=== PATIENT | female | born 1965 | race Caucasian/White ===

== ENCOUNTER 2016-07-05 23:32 | Inpatient (IN) | payer MEDICAID ==
[2016-07-05] MEDS ORDERED: Albuterol/Ipratropium 3.0-0.5 MG/3 ML Neb Soln NEB ONE (23:34)
[2016-07-05] MEDS ORDERED: methylPREDNISolone Sodium Succinate 125 MG/2 ML SDV IVPUSH ONE (23:34)
[2016-07-05] MEDS ORDERED: Budesonide 0.5 MG/2 ML Neb Susp NEB ONE (23:34)
--- NOTE | 2016-07-05 23:34 | EDM.PDOC ---
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 Upon their arrival to the patient's home they found a DuoNeb nebulizer treatment on the floor, which the patient had just completed. Her O2 sats on room air were in the 70th percentile at that time. No further treatment in route. Patient has a one- week history of a greenish yellowish productive cough and nasal drainage with increasing dyspnea since that time. No history of fever or known exposure to infection. The patient has also had some nonspecific 8/10 bilateral posterior abdominal pressure sensation with some nonspecific paresthesia with the symptoms starting about 3 days ago. No recent history of other abdominal pain, heartburn, nausea, diarrhea, melena, gross hematochezia, or any food intolerance , including fatty foods, etc., although she did have some mild stool incontinence secondary to coughing prior to arrival. She does admit to drinking 10 beers this evening The patient denies any chest pain/pressure, heart flutter, dizziness, orthostasis, orthopnea, diaphoresis, recent decreased exercise tolerance, or any other anginal-type symptoms. Symptom Onset Date: 07/05/16 Symptom Onset Time: 22:30 Timing/Duration: Reports: Constant, Getting worse, Other (As above) Severity: moderate Location, General: Reports: abdomen. Denies: head, neck, chest, back, upper extremity, left, upper extremity, right Quality: Reports: Burning, Pressure Improves with: Reports: None Worsens with: Reports: None Context, General: Reports: Other (As above) Associated Symptoms (General): Reports: cough, cough w sputum, shortness of breath. 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 Denies: Cataract , Glaucoma, Hard of hearing, Macular degeneration, Otitis media, Retinal detachment Other HEENT History: Allergic rhinitis as a child currently nonproblematic Cardiovascular History: Reports: Arrhythmia, Other (see below). Denies: Afib, Aneurysm, Blood clots/VTE/DVT, CAD, Heart murmur, High cholesterol, Hypertension , [place], PVD, Syncope Other Cardiovascular History: Repolarization changes versus borderline incomplete right bundle branch block Respiratory History: Reports: Asthma, COPD, Pulmonary fibrosis, Other (see below ). Denies: Intubation, difficult, Intubation, previous, PE, Pneumothorax, Sleep apnea, TB Other Respiratory History: Asthma as a child with secondary COPD and pulmonary fibrosis likely secondary to tobacco abuse Gastrointestinal History: Reports: None. Denies: Celiac disease, Cholelithiasis , Chronic constipation, Chronic diarrhea, Cirrhosis, Colon polyp, Fecal incontinence, Gastritis, GERD, GI bleed, Hepatitis, Inflammatory bowel disease, Irritable bowel syndrome, Jaundice, Pancreatitis, PUD Genitourinary History: Reports: None. 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 Denies: Dysfunctional uterine bleeding, Endometriosis, Spontaneous : 2 Para: 2 (Full term without complications during pregnancies or deliveries) LMP (Approximate): 3 Weeks Musculoskeletal History: Reports: Osteoarthritis, Other (see below). Denies: Back pain, chronic, Fracture, Gout, Neck pain, chronic, RA, SLE Other Musculoskeletal History: Right anterior cruciate ligament tear in August 2015 , right-sided popliteal cyst Neurological History: Reports: None. Denies: Brain injury, Cerebral aneurysms, Concussion, CVA, Headaches, chronic, Head trauma, Migraines, Neuropathy, peripheral, Seizure, TIA Psychiatric History: Reports: Addiction, Anxiety, Depression, Other (see below) . Denies: Abuse, victim of, ADD, ADHD, Hallucinations, Panic attack, Psychosis , PTSD, Suicide attempt, Suicidal ideation Other Psychiatric History: Alcohol abuse as below, no current treatment for anxiety depression disorder Endocrine/Metabolic History: Reports: None. Denies: Diabetes, type I, Diabetes , type II, Hypothyroidism, IDDM Hematologic History: Reports: None. Denies: Anemia, Blood transfusion(s), Iron deficiency Immunologic History: Reports: None. Denies: AIDS, HIV, SLE Oncologic (Cancer) History: Reports: None. Denies: Basal cell carcinoma, Cervix , Leukemia, Malignant melanoma, Non-Hodgkin's Lymphoma, Squamous cell carcinoma Dermatologic History: Reports: None. Denies: Eczema, Psoriasis - Infectious Disease History Infectious Disease History: Reports: Mononucleosis (Age 13). Denies: C- difficile, Chicken pox, Measles, Meningitis, MRSA, Pertussis (whooping cough), Rheumatic Fever, RSV, Rubella, Scarlet fever, Shingles, TB, VRE - Past Surgical History Head Surgeries/Procedures: Reports: None HEENT Surgical History: Reports: Adenoidectomy, Oral surgery, Tonsillectomy, Other (see below). Denies: Cataract surgery, Eye surgery, Laser surgery, LASIK , Myringotomy w tube(s), Naso-sinus surgery Other HEENT Surgeries/Procedures: Tonsillectomy and adenoidectomy at 5 years of age, [place] teeth extraction X 4 at age 18 Cardiovascular Surgical History: Reports: None. Denies: Varicose, Vascular surgery Respiratory Surgical History: Reports: None. Denies: Thoracentesis GI Surgical History: Reports: None. Denies: Appendectomy, Cholecystectomy, Colonoscopy, EGD, Hernia, abdominal, Hernia, inguinal, Hernia repair/other, Lysis of adhesions Female Surgical History: Reports: None. Denies: Breast biopsy, D&C, Hysterectomy, Tubal ligation Endocrine Surgical History: Reports: None. Denies: Thyroid biopsy Neurological Surgical History: Reports: C-Spine, Spinal fusion, Other (see below ). Denies: Discectomy, Laminectomy, Lumbar spine, Vertebroplasty Other Neurological Surgeries/Procedures: C3-C5 spinal fusion with graft from the right hip region at age 23 and age 24 Musculoskeletal Surgical History: Reports: None. Denies: Arthroscopic procedure , Ganglion cyst, Hip replacement, Knee replacement, ORIF, Shoulder surgery Oncologic Surgical History: Reports: None Dermatological Surgical History: Reports: None - Past Imaging History Past Imaging History: Reports: MRI (Right knee on 08/25/15) Social & Family History - Family History Family Medical History: Unobtainable HEENT: Reports: None. Denies: Allergic rhinitis, Glaucoma, Macular degeneration , Retinal detachment Cardiac: Reports: CAD, [place], Other (see below). Denies: Afib, Arrhythmia, Heart failure, Heart murmur, High cholesterol, Hypertension, PVD/COD, Syncope Other Cardiac Family History: Paternal aunts x4 with history of [place] with 2 of them dying in their 60s from a fatal [place], maternal aunt with fatal [place] at age 77, maternal grandmother with fatal [place] in her 60s Respiratory: Reports: COPD, Other (see below). Denies: Asthma, PE, Pneumothorax , Sleep apnea Other Respiratory Family Hisory: Mother with COPD GI: Reports: None. Denies: Celiac disease, Cholelithiasis, Colon polyps, GERD, GI bleed, Inflammatory bowel disease, Irritable bowel syndrome, PUD : Reports: None. Denies: Dialysis, Renal disease/insufficiency OBGYN: Reports: None. Denies: Dysfunctional uterine bleeding, Endometriosis, Recurrent spontaneous Musculoskeletal: Reports: None. Denies: Gout, Osteoarthritis, RA, SLE Neurological: Reports: None. Denies: Alzheimers disease, Cerebral aneurysms, CVA, Dementia, Migraines, MS, Parkinson's, Seizure, TIA Psychiatric: Reports: Anxiety, Depression, Other (see below). Denies: Abuse, victim of, ADD, ADHD, Psych hospitalization(s), PTSD Other Psychiatric Family History: Almost all family members on both paternal and maternal sides have problems with anxiety depression disorder and alcohol abuse Endocrine/Metabolic: Reports: None. Denies: Diabetes, type I, Diabetes, type II , Hypothyroidism, IDDM Hematologic: Reports: None. Denies: Anemia, Transfusion reaction Immunologic: Reports: None. Denies: AIDS, HIV, SLE Dermatologic: Reports: None. Denies: Eczema, Psoriasis Oncologic: Reports: Lung, Metastatic, Skin, Other (see below). Denies: Breast, Colon, Hodgkin's lymphoma, Leukemia, Lymphoma, Non-Hodgkin's lymphoma, Uterine Other Oncologic Family History: Father with fatal metastatic skin cancer/ melanoma at age 73, maternal aunt with fatal lung cancer in her 60s with history of tobacco use - Tobacco Use Smoking Status *Q: Current Every Day Smoker Years of Tobacco use: 40 Packs/Tins Daily: 1 (Maximum use of 2 packs per day with patient starting smoking at age 11) Used Tobacco, but Quit: No Smoking Cessation Information Provided To Patient: Yes Second Hand Smoke Exposure: No Second Hand Smoke Education Provided: No - Caffeine Use Caffeine Use: Reports: Coffee (1 cup of coffee per day). Denies: Energy drinks , Soda, Tea - Alcohol Use Alcohol Use History: Yes Days Per Week of Alcohol Use: 7 (Patient admits to alcohol abuse since about age 16 with no history of DWI or previous alcohol treatment) Number of Drinks Per Day: 15 (Usually beer) Total Drinks Per Week: 105 Date of Last Drink: 07/05/16 (10 beers this evening) Time of Last Drink: 19:30 Alcohol Use in Last Twelve Months: Yes Alcohol Use Frequency: Binges - Recreational Drug Use Recreational Drug Use: Yes Drug Use in Last 12 Months: No Recreational Drug Type: Reports: Marijuana/Hashish (Smoked on a daily basis in her teenage years and her 20s). Denies: Amphetamines (Speed), Cocaine, Heroin, Inhalants (Glues, Solvents, Aerosols), LSD (Acid), Methamphetamine, Morphine Recreational Drug Route: Reports: Inhaled - Living Situation & Occupation Living situation: Reports: (In 2012, 2 children), with significant other (Lives currently with significant other) Occupation: unemployed (Previously worked in the [employer] department at [employer] in [place]) ED ROS GENERAL - Review of Systems Review Of Systems: See Below Constitutional: Reports: no symptoms. Denies: fever, chills, malaise, weakness , fatigue, night sweats, diaphoresis, decreased appetite, weight loss, weight gain HEENT: Reports: Rhinitis, Sinus problem. Denies: Contact Lenses, Dental pain, Ear discharge, Ear pain, Eye discharge, Eye pain, Glasses, Hearing loss, Throat pain, Vertigo, Vision change Respiratory: Reports: Shortness of Breath, Wheezing, Cough, Sputum. Denies: Pleuritic Chest Pain, Hemoptysis Cardiovascular: Reports: Dyspnea on exertion. Denies: Chest pain, Blood pressure problem, Claudication, Edema, Lightheadedness, Orthopnea, Palpitations , PND, Syncope Endocrine: Reports: no symptoms. Denies: fatigue GI/Abdominal: Reports: Abdominal pain. Denies: Anorexia, Black stool, Bloody stool, Constipation, Diarrhea, Decreased appetite, Difficulty swallowing, Distension, Flatus, Hematemesis, Hematochezia, Melena, Nausea, Stool incontinence, Vomiting : Reports: no symptoms. Denies: discharge, dysuria, flank pain, frequency, hematuria, incontinence, irregular menses, pain, urgency, urinary retention Musculoskeletal: Reports: no symptoms. Denies: neck pain, shoulder pain, arm pain, back pain, leg pain Skin: Reports: no symptoms. Denies: jaundice, diaphoresis, bruising, wound Neurological: Reports: Numbness (Posterior abdominal region as above), Paresthesia, Tingling. Denies: Confusion, Dizziness, Headache, Seizure, Syncope , Weakness Psychiatric: Reports: Cravings (Alcohol). Denies: Agitation, Anxiety, Confusion , Depression, Hallucinations, Homicidal ideation, Mood lability, Suicidal ideation Hematologic/Lymphatic: Reports: no symptoms. Denies: anemia, easy bleeding, easy bruising Immunologic: Reports: no symptoms ED EXAM, GENERAL - Physical Exam Exam: See Below Exam Limited By: Intoxication (Borderline) General Appearance: alert, WD/WN, anxious (Mild), mild distress Eye Exam: bilateral eye: EOMI, normal inspection (No nystagmus), PERRL Ears: normal external exam, normal canal, hearing grossly normal, normal TMs Nose: normal mucosa, no blood, clear rhinorrhea Throat/Mouth: Normal inspection, Normal lips, Normal teeth, Normal gums, Normal oropharynx, Normal voice, No airway compromise. No: Dysphagia, Perioral cyanosis Head: atraumatic, normocephalic. No: facial swelling, facial tenderness, sinus tenderness Neck: normal inspection, supple, non-tender, full range of motion. No: carotid bruit, lymphadenopathy (L), lymphadenopathy (R) Respiratory/Chest: no accessory muscle use, chest non-tender, rales (Mild diffuse Diffuse bilateral), rhonchi (Moderate diffuse), wheezing (Moderate diffuse), other (Mild to moderate dyspnea). No: pleural rub, retractions, splinting Cardiovascular: no edema, no gallop, no JVD, no murmur, no rub, tachycardia ( Regular rhythm). No: systolic murmur, gallop/S3, gallop/S4, friction rub Peripheral Pulses: 4+: radial (L), radial (R), dorsalis pedis (L), dorsalis pedis (R) GI/Abdominal: normal bowel sounds, soft, non tender, no organomegaly, no distention, no abnormal bruit, no mass. No: guarding (Female) Exam: Deferred Rectal (Female) Exam: Normal Exam, Normal rectal tone, Heme - stool. No: Black stool, Bloody stool, Fecal impaction, Tenderness (No Attila space tenderness) Back Exam: normal inspection, full range of motion. No: CVA tenderness (L), CVA tenderness (R), muscle spasm Extremities: normal inspection, normal range of motion, non-tender, no pedal edema, normal capillary refill. No: Leeanna's Sign Neurological: alert, oriented, CN II-XII intact, normal cognition, normal gait, normal reflexes (Negative Babinski's), no motor/sensory deficits Psychiatric: anxious (Mild), depressed mood (Mild) Skin Exam: Warm, Dry, Intact, Normal color, No rash. No: Diaphoretic, Ecchymosis, Jaundice, Petechiae, Wound/incision Lymphatic: no adenopathy EKG INTERPRETATION EKG Date: 07/06/16 Time: 23:47 Rhythm: other (Sinus tachycardia) Rate (beats/min): 101 Viola: normal (Neutral) P-wave: enlarged (Diffuse biphasic P waves) QRS: wide (QRS interval of 0.10 seconds representing repolarization changes versus beginning incomplete right bundle branch block with T-wave inversion in lead V1) ST-T: normal (Nonspecific ST changes) QT: normal Comparison: no change (Since last EKG on 09/17/13) EKG Interpretation Comments: No acute ischemic changes Course - Vital Signs Last Recorded V/S: Last Vital Signs Temp 36.6 C 07/05/16 23:35 Pulse 88 07/06/16 01:30 Resp 16 07/06/16 01:30 BP 113/59 L 07/06/16 01:30 Pulse Ox 95 07/06/16 01:30 Vital Signs - 24 hr 07/05/16 07/05/16 07/05/16 23:33 23:35 23:45 Temperature [ 36.8 C 36.6 C Oral] Pulse, 103 H Peripheral [ Pulse Oximetry] Pulse, 103 H Peripheral [ Right Brachial] Respiratory 30 H 22 H 20 Rate Blood Pressure 143/75 H 143/75 H 133/79 [Right Upper Arm] O2 Sat by Pulse 99 97 94 L Oximetry 07/06/16 07/06/16 07/06/16 00:30 00:45 01:00 Temperature [ Oral] Pulse, 89 94 84 Peripheral [ Pulse Oximetry] Pulse, 94 Peripheral [ Right Brachial] Respiratory 20 20 16 Rate Blood Pressure 118/69 134/81 134/61 [Right Upper Arm] O2 Sat by Pulse 94 L 94 L 95 Oximetry 07/06/16 01:30 Temperature [ Oral] Pulse, 88 Peripheral [ Pulse Oximetry] Pulse, Peripheral [ Right Brachial] Respiratory 16 Rate Blood Pressure 113/59 L [Right Upper Arm] O2 Sat by Pulse 95 Oximetry - Orders/Labs/Meds Orders: Active Orders 24 hr Category Date Time Status Cardiac Monitoring [RC] . DIRECTED Care 07/05/16 23:36 Active EKG Documentation Completion [RC] ASDIRECTED Care 07/05/16 23:40 Active Oxygen Therapy, ED [RC] CONTINUOUS Care 07/05/16 23:37 Active Peripheral IV Care [RC] . DIRECTED Care 07/05/16 23:41 Active RT Aerosol Therapy [RC] ASDIRECTED Care 07/05/16 23:34 Active Nothing per Oral Now Diet [DIET] Diet 07/05/16 Breakfast Active Abdomen Series w Chest 1V [CR] Stat Exams 07/05/16 23:39 Taken CULTURE BLOOD [BC] Stat Lab 07/05/16 23:40 Received Sodium Chloride 0.9% [Saline Flush] Med 07/05/16 23:40 Active 10 ml FLUSH ASDIRECTED PRN Blood Culture x2 Reflex Set [OM.PC] Urgent Oth 07/05/16 23:36 Ordered Obtain Past Medical Record [OM.PC] Urgent Oth 07/05/16 23:37 Active Peripheral IV Insertion Adult [OM.PC] Stat Oth 07/05/16 23:37 Ordered Medication Orders Sodium Chloride (Saline Flush) 10 ml FLUSH ASDIRECTED PRN PRN Reason: Keep Vein Open Last Admin: 07/06/16 00:55 Dose: 10 ml Admin: 07/06/16 00:52 Dose: 10 ml Labs: Laboratory Tests 07/05/16 07/05/16 07/05/16 Range/Units 00:30 00:30 00:30 WBC (4.0-10.2) K/uL RBC (3.77-5.09) M/uL Hgb (11.7-15.5) g/dL Hct (34.0-46.0) % MCV (84.0-98.0) fL MCH (28.2-33.3) pg MCHC (31.7-36.0) g/dL RDW (11.2-14.1) % Plt Count (150-350) K/uL Neut % (Auto) (45.0-80.0) % Lymph % (Auto) (10.0-50.0) % Kinney % (Auto) (2.0-14.0) % Eos % (Auto) (0.0-5.0) % Baso % (Auto) (0.0-2.0) % Neut # (Auto) (1.40-7.00) K/uL Lymph # (Auto) (0.50-3.50) K/uL Kinney # (Auto) (0.00-1.00) K/uL Eos # (Auto) (0.00-0.50) K/uL Baso # (Auto) (0.00-0.20) K/uL PT 9.7 L (9.8-11.7) SEC INR 0.9 APTT 25.1 (23.5-30.0) SEC D-Dimer, Quantitative 270 (0-400) ng/mL Sodium 141 (136-145) mmol/L Potassium 3.8 (3.5-5.1) mmol/L Chloride 105 (98-107) mmol/L Carbon Dioxide 24.7 (21.0-32.0) mmol/L BUN 7 (7-18) mg/dL Creatinine 0.54 (0.51-1.17) mg/dL Est Cr Clr Drug Dosing 106.43 mL/min Estimated GFR (MDRD) > 60 mL/min Glucose 159 H (74-106) mg/dL Lactic Acid (0.4-2.0) mmol/L Uric Acid 4.6 (2.6-7.2) mg/dL Calcium 8.5 (8.5-10.1) mg/dL Magnesium 1.9 (1.8-2.4) mg/dL Total Bilirubin 0.2 (0.2-1.0) mg/dL AST 45 H (15-37) U/L ALT 46 (12-78) U/L Alkaline Phosphatase 74 (46-116) IU/L Creatine Kinase 122 (26-308) U/L Creatine Kinase Index 1.5 (0.0-2.5) % CK-MB (CK-2) 1.80 (0.00-3.60) ng/mL Troponin I 0.019 (0.000-0.056) ng/mL [id number] Pept 32 (0-125) pg/mL Total Protein 6.9 (6.4-8.2) g/dL Albumin 3.3 L (3.4-5.0) g/dL Amylase 94 (25-115) U/L Lipase 267 (73-393) U/L TSH, Ultra Sensitive 1.804 (0.358-3.740) mIU/mL HCG, Qual (NEGATIVE) Ethyl Alcohol (0.000-0.080) g/dL H. pylori IgG Antibody (NEGATIVE) 07/05/16 07/05/16 07/05/16 Range/Units 00:30 00:30 00:30 WBC (4.0-10.2) K/uL RBC (3.77-5.09) M/uL Hgb (11.7-15.5) g/dL Hct (34.0-46.0) % MCV (84.0-98.0) fL MCH (28.2-33.3) pg MCHC (31.7-36.0) g/dL RDW (11.2-14.1) % Plt Count (150-350) K/uL Neut % (Auto) (45.0-80.0) % Lymph % (Auto) (10.0-50.0) % Kinney % (Auto) (2.0-14.0) % Eos % (Auto) (0.0-5.0) % Baso % (Auto) (0.0-2.0) % Neut # (Auto) (1.40-7.00) K/uL Lymph # (Auto) (0.50-3.50) K/uL Kinney # (Auto) (0.00-1.00) K/uL Eos # (Auto) (0.00-0.50) K/uL Baso # (Auto) (0.00-0.20) K/uL PT (9.8-11.7) SEC INR APTT (23.5-30.0) SEC D-Dimer, Quantitative (0-400) ng/mL Sodium (136-145) mmol/L Potassium (3.5-5.1) mmol/L Chloride (98-107) mmol/L Carbon Dioxide (21.0-32.0) mmol/L BUN (7-18) mg/dL Creatinine (0.51-1.17) mg/dL Est Cr Clr Drug Dosing mL/min Estimated GFR (MDRD) mL/min Glucose (74-106) mg/dL Lactic Acid 1.6 (0.4-2.0) mmol/L Uric Acid (2.6-7.2) mg/dL Calcium (8.5-10.1) mg/dL Magnesium (1.8-2.4) mg/dL Total Bilirubin (0.2-1.0) mg/dL AST (15-37) U/L ALT (12-78) U/L Alkaline Phosphatase (46-116) IU/L Creatine Kinase (26-308) U/L Creatine Kinase Index (0.0-2.5) % CK-MB (CK-2) (0.00-3.60) ng/mL Troponin I (0.000-0.056) ng/mL [id number] Pept (0-125) pg/mL Total Protein (6.4-8.2) g/dL Albumin (3.4-5.0) g/dL Amylase (25-115) U/L Lipase (73-393) U/L TSH, Ultra Sensitive (0.358-3.740) mIU/mL HCG, Qual Negative (NEGATIVE) Ethyl Alcohol (0.000-0.080) g/dL H. pylori IgG Antibody Negative (NEGATIVE) 07/06/16 07/06/16 Range/Units 00:30 00:30 WBC 4.9 (4.0-10.2) K/uL RBC 3.91 (3.77-5.09) M/uL Hgb 13.4 D (11.7-15.5) g/dL Hct 39.8 (34.0-46.0) % MCV 101.8 H (84.0-98.0) fL MCH 34.3 H (28.2-33.3) pg MCHC 33.7 (31.7-36.0) g/dL RDW 11.9 (11.2-14.1) % Plt Count 123 L D (150-350) K/uL Neut % (Auto) 53.6 (45.0-80.0) % Lymph % (Auto) 31.8 (10.0-50.0) % Kinney % (Auto) 10.5 (2.0-14.0) % Eos % (Auto) 3.5 (0.0-5.0) % Baso % (Auto) 0.6 (0.0-2.0) % Neut # (Auto) 2.62 (1.40-7.00) K/uL Lymph # (Auto) 1.55 (0.50-3.50) K/uL Kinney # (Auto) 0.51 (0.00-1.00) K/uL Eos # (Auto) 0.17 (0.00-0.50) K/uL Baso # (Auto) 0.03 (0.00-0.20) K/uL PT (9.8-11.7) SEC INR APTT (23.5-30.0) SEC D-Dimer, Quantitative (0-400) ng/mL Sodium (136-145) mmol/L Potassium (3.5-5.1) mmol/L Chloride (98-107) mmol/L Carbon Dioxide (21.0-32.0) mmol/L BUN (7-18) mg/dL Creatinine (0.51-1.17) mg/dL Est Cr Clr Drug Dosing mL/min Estimated GFR (MDRD) mL/min Glucose (74-106) mg/dL Lactic Acid (0.4-2.0) mmol/L Uric Acid (2.6-7.2) mg/dL Calcium (8.5-10.1) mg/dL Magnesium (1.8-2.4) mg/dL Total Bilirubin (0.2-1.0) mg/dL AST (15-37) U/L ALT (12-78) U/L Alkaline Phosphatase (46-116) IU/L Creatine Kinase (26-308) U/L Creatine Kinase Index (0.0-2.5) % CK-MB (CK-2) (0.00-3.60) ng/mL Troponin I (0.000-0.056) ng/mL [id number] Pept (0-125) pg/mL Total Protein (6.4-8.2) g/dL Albumin (3.4-5.0) g/dL Amylase (25-115) U/L Lipase (73-393) U/L TSH, Ultra Sensitive (0.358-3.740) mIU/mL HCG, Qual (NEGATIVE) Ethyl Alcohol 0.007 (0.000-0.080) g/dL H. pylori IgG Antibody (NEGATIVE) Microbiology 07/06/16 01:05 Influenza Type A Antigen Screen - Final Nasopharyngeal Swab - Nare, Left NEGATIVE INFLUENZA A VIRUS AG Influenza Type B Antigen Screen - Final NEGATIVE INFLUENZA B VIRUS AG 07/05/16 23:40 Stool Occult Blood (NATALI) - Final Stool / Feces - Stool, Formed NEGATIVE OCCULT BLOOD Meds: Medications Generic Name Dose Route Start Last Admin Trade Name Freq PRN Reason Stop Dose Admin Sodium Chloride 10 ml 07/05/16 23:40 07/06/16 00:55 Saline Flush FLUSH 10 ml ASDIRECTED PRN Administration Keep Vein Open Discontinued Medications Generic Name Dose Route Start Last Admin Trade Name Freq PRN Reason Stop Dose Admin Albuterol/Ipratropium 3 ml 07/05/16 23:34 07/05/16 23:39 Duoneb 3.0-0.5 Mg/3 Ml NEB 07/05/16 23:35 3 ml ONETIME ONE Administration Budesonide 0.5 mg 07/05/16 23:34 07/06/16 00:49 Pulmicort NEB 07/05/16 23:35 0.5 mg ONETIME ONE Administration Famotidine 40 mg 07/05/16 23:40 07/06/16 00:53 Pepcid IVPUSH 07/05/16 23:41 40 mg ONETIME ONE Administration Methylprednisolone Sodium Succinate 125 mg 07/05/16 23:34 07/05/16 23:39 Solu-Medrol IVPUSH 07/05/16 23:35 125 mg ONETIME ONE Administration - Radiology Interpretation Free Text/Narrative:: Distribution Specialist shows sinus tachycardia with heart rate in the 100 110s on arrival with improvement to the 80-90s after therapy. No other ectopy or arrhythmia were noted. Acute abdominal x-rays shows moderate to severe COPD changes with probable pulmonary hypertension but no cardiomegaly, CHF, pneumothorax, etc.. Borderline atelectasis versus right middle lobe pulmonary infiltrates was noted. No gaseous distention, intra-abdominal calcifications, fluid levels, free air, ileus, or obstruction Departure - Departure Time of Disposition: 01:40 Disposition: Admitted As Inpatient 66 Condition: good Clinical Impression: Thrombocytopenia, Macrocytosis without anemia, Alcohol abuse, Tobacco abuse counseling, Hypoalbuminemia COPD (chronic obstructive pulmonary disease) Qualifiers: COPD type: emphysema Emphysema type: panlobular Qualified Code(s): J43.1 - Panlobular emphysema Abdominal pain Qualifiers: Abdominal location: generalized Qualified Code(s): R10.84 - Generalized abdominal pain Pneumonia Qualifiers: Pneumonia type: due to unspecified organism Laterality: right Lung location: middle lobe of lung Qualified Code(s): J18.1 - Lobar pneumonia, unspecified organism Osteoarthritis Qualifiers: Osteoarthritis location: multiple joints Osteoarthritis type: primary Qualified Code(s): M15.0 - Primary generalized (osteo)arthritis Referrals: Sharron Lockhart PA-C [Primary Care Provider] - Forms: ED Department Discharge Care Plan Goals: See plan - Problem List & Annotations (1) COPD (chronic obstructive pulmonary disease) SNOMED Code(s): 46279633 Code(s): J44.9 - CHRONIC OBSTRUCTIVE PULMONARY DISEASE, UNSPECIFIED Status : Acute Priority: High Current Visit: Yes Annotation/Comment:: Severe hypoxia prior to arrival to our facility as above. Patient initially given another DuoNeb treatments with additional high-dose Pulmicort nebulizer treatment. IV Solu-Medrol therapy was also given in the emergency room. Tobacco cessation strongly encouraged with information provided at discharge. Patient would benefit from PFTs on an outpatient basis Qualifiers: COPD type: emphysema Emphysema type: panlobular Qualified Code(s): J43.1 - Panlobular emphysema (2) Pneumonia SNOMED Code(s): 617803792 Code(s): J18.9 - PNEUMONIA, UNSPECIFIED ORGANISM Status: Acute Priority: High Current Visit: Yes Onset Date: 07/06/16 Annotation/Comment:: Blood cultures x2 collected. IV antibiotic therapy and to be initiated shortly after admission. No leukocytosis with only borderline right middle lobe pneumonia by chest x-ray. Sputum to be obtained Qualifiers: Pneumonia type: due to unspecified organism Laterality: right Lung location: middle lobe of lung Qualified Code(s): J18.1 - Lobar pneumonia, unspecified organism (3) Abdominal pain SNOMED Code(s): 09849505 Code(s): R10.9 - UNSPECIFIED ABDOMINAL PAIN Status: Acute Priority: High Current Visit: Yes Onset Date: ~07/03/16 Annotation/Comment:: IV Pepcid given in the emergency room as GI prophylaxis. Abdominal assessments with vitals. Note negative Hemoccult area note mildly elevated troponin I with otherwise normal EKG and cardiac enzymes. No true chest pain or anginal complaints with EKG and cardiac blood work to be repeated later this morning Qualifiers: Abdominal location: generalized Qualified Code(s): R10.84 - Generalized abdominal pain (4) Alcohol abuse SNOMED Code(s): 43445247 Code(s): F10.10 - ALCOHOL ABUSE, UNCOMPLICATED Status: Chronic Priority: High Current Visit: Yes Annotation/Comment:: Mild intoxication today. Patient refuses recommended alcohol treatment. No previous history of DTs, seizures, etc. (5) Hypoalbuminemia SNOMED Code(s): 295211450 Code(s): E88.09 - OTH DISORDERS OF PLASMA-PROTEIN METABOLISM, NEC Status: Acute Priority: Medium Current Visit: Yes Onset Date: 07/06/16 Annotation/Comment:: Likely secondary to poor nutrition and alcohol abuse. Initiate high-protein Glucerna supplements as snacks. N.p.o. for now (6) Macrocytosis without anemia SNOMED Code(s): 317849526 Code(s): D75.89 - OTHER SPECIFIED DISEASES OF BLOOD AND BLOOD-FORMING ORGANS Status: Acute Priority: Medium Current Visit: Yes Onset Date: 07/06/16 Annotation/Comment:: Likely secondary to alcohol abuse. Oral thiamine on admission with vitamin B 12 and folate less than levels in the morning (7) Osteoarthritis SNOMED Code(s): 907941633 Code(s): M19.90 - UNSPECIFIED OSTEOARTHRITIS, UNSPECIFIED SITE Status: Chronic Priority: Medium Current Visit: Yes Annotation/Comment:: Stable by history Qualifiers: Osteoarthritis location: multiple joints Osteoarthritis type: primary Qualified Code(s): M15.0 - Primary generalized (osteo)arthritis (8) Thrombocytopenia SNOMED Code(s): 403977112 Code(s): D69.6 - THROMBOCYTOPENIA, UNSPECIFIED Status: Acute Priority: Medium Current Visit: Yes Onset Date: ~07/06/16 Annotation/Comment:: Observe closely with repeat CBC on 07/07 (9) Tobacco abuse counseling SNOMED Code(s): 776891006, 348313484, 081850943 Code(s): Z71.6 - TOBACCO ABUSE COUNSELING Status: Chronic Priority: Medium Current Visit: Yes Annotation/Comment:: As above - Problem List Review Problem List Initiated/Reviewed/Updated: Yes - My Orders Last 24 Hours: My Active Orders 07/05/16 23:34 RT Aerosol Therapy [RC] ASDIRECTED 07/05/16 23:36 Cardiac Monitoring [RC] . DIRECTED Blood Culture x2 Reflex Set [OM.PC] Urgent 07/05/16 23:37 Oxygen Therapy, ED [RC] CONTINUOUS Obtain Past Medical Record [OM.PC] Urgent Peripheral IV Insertion Adult [OM.PC] Stat 07/05/16 23:39 Abdomen Series w Chest 1V [CR] Stat 07/05/16 23:40 EKG Documentation Completion [RC] ASDIRECTED CULTURE BLOOD [BC] Stat Sodium Chloride 0.9% [Saline Flush] 10 ml FLUSH ASDIRECTED PRN 07/05/16 23:41 Peripheral IV Care [RC] . DIRECTED 07/05/16 Breakfast Nothing per Oral Now Diet [DIET] - Assessment/Plan Admission H&P: Please use this note as an admission H&P Last 24 Hours: My Active Orders 07/05/16 23:34 RT Aerosol Therapy [RC] ASDIRECTED 07/05/16 23:36 Cardiac Monitoring [RC] . DIRECTED Blood Culture x2 Reflex Set [OM.PC] Urgent 07/05/16 23:37 Oxygen Therapy, ED [RC] CONTINUOUS Obtain Past Medical Record [OM.PC] Urgent Peripheral IV Insertion Adult [OM.PC] Stat 07/05/16 23:39 Abdomen Series w Chest 1V [CR] Stat 07/05/16 23:40 EKG Documentation Completion [RC] ASDIRECTED CULTURE BLOOD [BC] Stat Sodium Chloride 0.9% [Saline Flush] 10 ml FLUSH ASDIRECTED PRN 07/05/16 23:41 Peripheral IV Care [RC] . DIRECTED 07/05/16 Breakfast Nothing per Oral Now Diet [DIET] Assessment:: As above Plan: As above. Extensive precautions were given to the patient, who is in agreement with the treatment plan. The patient will require about 3-4 days of inpatient/ acute care secondary to multiple health problems as above.
[2016-07-05] MEDS ORDERED: Famotidine 20 MG/2 ML SDV IVPUSH ONE (23:40)
[2016-07-06] MEDS: Sodium Chloride 0.9% 10 ML Syringe FLUSH PRN ×3 (00:52→04:15)
[2016-07-06 01:10] LABS: CHLORIDE,CL 105 mmol/L (98-107); SODIUM,NA 141 mmol/L (136-145)
[2016-07-06] MEDS ORDERED: Sodium Chloride 0.9% 10 ML Syringe FLUSH PRN (02:22)
[2016-07-06] MEDS ORDERED: Acetaminophen 325 MG Tab PO PRN (02:22)
[2016-07-06] MEDS ORDERED: Albuterol/Ipratropium 3.0-0.5 MG/3 ML Neb Soln NEB PRN (02:22)
[2016-07-06] MEDS ORDERED: Temazepam 15 MG Cap PO PRN (02:22)
[2016-07-06] MEDS ORDERED: LORazepam 2 MG/ML MDV IVPUSH PRN (02:23)
[2016-07-06] MEDS ORDERED: Albuterol 0.083% 2.5 MG/3 ML Neb Soln INH PRN (02:25)
[2016-07-06] MEDS ORDERED: Azithromycin 500 MG in Sodium Chloride 0.9% 250 ML IV SCH ×2 (02:30→04:00)
[2016-07-06] MEDS ORDERED: cefTRIAXone 1 GM in Sodium Chloride 0.9% 100 ML IV SCH ×2 (02:30→03:00)
[2016-07-06] MEDS ORDERED: Dextromethorphan/guaiFENesin 600-30 MG Tab.ER PO SCH (08:00)
[2016-07-06] MEDS ORDERED: Budesonide 0.5 MG/2 ML Neb Susp NEB SCH (08:00)
[2016-07-06] MEDS ORDERED: Albuterol/Ipratropium 3.0-0.5 MG/3 ML Neb Soln NEB SCH (08:00)
[2016-07-06 08:40] VITALS: BP 127/82
--- NOTE | 2016-07-06 10:06 | PCM.DCSUM1 ---
Discharge Summary - Hospital Course HPI Initial Comments: See emergency room note/admission H&P Brief History: See emergency room note/admission H&P - Discharge Data Discharge Date: 07/06/16 Discharge Disposition: Against Medical Advice 07 Condition: Good - Discharge Diagnosis/Problem(s) (1) COPD (chronic obstructive pulmonary disease) SNOMED Code(s): 02372513 ICD Code: J44.9 - CHRONIC OBSTRUCTIVE PULMONARY DISEASE, UNSPECIFIED Status : Acute Priority: High Current Visit: Yes Problem Details: Patient refuses further hospitalization at this time despite my strong recommendations. She is signing out AMA. The patient apparently has home O2 therapy. Severe hypoxia prior to arrival to our facility. Patient initially given another DuoNeb treatments with additional high-dose Pulmicort nebulizer treatment. IV Solu-Medrol therapy was also given in the emergency room. Tobacco cessation strongly encouraged with information provided at discharge. Patient would benefit from PFTs on an outpatient basis Qualifiers: COPD type: emphysema Emphysema type: panlobular Qualified Code(s): J43.1 - Panlobular emphysema (2) Pneumonia SNOMED Code(s): 940541842 ICD Code: J18.9 - PNEUMONIA, UNSPECIFIED ORGANISM Status: Acute Priority : High Current Visit: Yes Onset Date: 07/06/16 Problem Details: Blood cultures x2 collected in the emergency room. Discharge patient today on Augmentin and Zithromax with previous IV antibiotic therapy during this hospitalization. No leukocytosis with only borderline right middle lobe pneumonia by chest x-ray. Sputum specimen has yet to be obtained Qualifiers: Pneumonia type: due to unspecified organism Laterality: right Lung location: middle lobe of lung Qualified Code(s): J18.1 - Lobar pneumonia, unspecified organism (3) Abdominal pain SNOMED Code(s): 11634566 ICD Code: R10.9 - UNSPECIFIED ABDOMINAL PAIN Status: Acute Priority: High Current Visit: Yes Onset Date: ~07/03/16 Problem Details: IV Pepcid given in the emergency room as GI prophylaxis. Abdominal assessments with vitals were normal. Note negative Hemoccult patient is a somewhat poor historian and possibility of atypical angina/chest pain considered on admission. Borderline mild BNP elevation with no direct evidence of significant clinical CHF. Mild progression of her troponin I this morning with otherwise normal EKG and other cardiac enzymes during this hospitalization. No true chest pain or anginal complaints with further cardiac workup depending on her clinical course. No abdominal pain at time of discharge with normal bowel movement earlier this morning by her history Qualifiers: Abdominal location: generalized Qualified Code(s): R10.84 - Generalized abdominal pain (4) Alcohol abuse SNOMED Code(s): 90136692 ICD Code: F10.10 - ALCOHOL ABUSE, UNCOMPLICATED Status: Chronic Priority : High Current Visit: Yes Problem Details: Mild intoxication on admission. Patient still refuses recommended alcohol treatment. No previous history of DTs , seizures, etc.. Emotional support provided (5) Hypoalbuminemia SNOMED Code(s): 225105390 ICD Code: E88.09 - [facility] DISORDERS OF PLASMA-PROTEIN METABOLISM, NEC Status: Acute Priority: Medium Current Visit: Yes Onset Date: 07/06/16 Problem Details: Likely secondary to poor nutrition and alcohol abuse. Initiate high- protein Glucerna supplements as snacks. N.p.o. for now (6) Macrocytosis without anemia SNOMED Code(s): 139466178 ICD Code: D75.89 - OTHER SPECIFIED DISEASES OF BLOOD AND BLOOD-FORMING ORGANS Status: Acute Priority: Medium Current Visit: Yes Onset Date: 07/19 Problem Details: Likely secondary to alcohol abuse. Oral thiamine given prior to discharge with vitamin B 12 and folate levels normal in the morning. Mild iron deficiency as below. Continue oral thiamine at discharge with additional iron supplement (7) Osteoarthritis SNOMED Code(s): 410054430 ICD Code: M19.90 - UNSPECIFIED OSTEOARTHRITIS, UNSPECIFIED SITE Status: Chronic Priority: Medium Current Visit: Yes Problem Details: Stable by history Qualifiers: Osteoarthritis location: multiple joints Osteoarthritis type: primary Qualified Code(s): M15.0 - Primary generalized (osteo)arthritis (8) Thrombocytopenia SNOMED Code(s): 818558454 ICD Code: D69.6 - THROMBOCYTOPENIA, UNSPECIFIED Status: Acute Priority: Medium Current Visit: Yes Onset Date: ~07/06/16 Problem Details: Observe closely with repeat CBC and other blood on 07/07 by her regular provider (9) Tobacco abuse counseling SNOMED Code(s): 812523955, 227903662, 911031296 ICD Code: Z71.6 - TOBACCO ABUSE COUNSELING Status: Chronic Priority: Medium Current Visit: Yes Problem Details: Tobacco cessation strongly encouraged (10) Hyperlipidemia SNOMED Code(s): 79140463 ICD Code: E78.5 - HYPERLIPIDEMIA, UNSPECIFIED Status: Acute Priority: Medium Current Visit: Yes Onset Date: 07/06/16 Problem Details: Discuss statin therapy with her regular provider, although note current alcohol abuse history. Dietary information provided. Her glycosylated hemoglobin was normal today. Qualifiers: Hyperlipidemia type: pure hypercholesterolemia Qualified Code(s): E78.00 - Pure hypercholesterolemia, unspecified; E78.0 - Pure hypercholesterolemia (11) Iron deficiency SNOMED Code(s): 75424931 ICD Code: E61.1 - IRON DEFICIENCY Status: Acute Priority: Medium Current Visit: Yes Onset Date: 07/06/16 Problem Details: As above (12) Multiple myeloma SNOMED Code(s): 514951368 ICD Code: C90.00 - MULTIPLE MYELOMA NOT HAVING ACHIEVED REMISSION Status: Suspected Priority: High Current Visit: Yes Onset Date: ~07/06/16 Problem Details: Telephone consultation with the radiology department at [facility] at 07:55 a.m. this morning with suspicion of possible multiple myeloma based on lesions noted in the pelvis. Differential diagnosis includes metastatic disease, etc.. Patient agrees to bone scan in this facility JESUS with results to be discussed with her regular provider and further oncology referral depending on these results Qualifiers: Multiple myeloma remission status: unspecified Qualified Code(s): C90.00 - Multiple myeloma not having achieved remission - Patient Summary/Data Operative Procedure(s) Performed: None Complications: None Consults: None Labs Pending at D/C: None Recommended Follow-up Testing/Procedures: As per discharge instructions Planned Operative Procedure(s) after DC: None Hospital Course: As above. Patient refuses recommended continueD hospitalization - Patient Instructions Diet: Heart Healthy Diet Diet, Other: high-protein Glucerna supplements twice a day as snacks Activity: No Strenuous Activities (50% maximum exercise restriction until your heart status has been clarified) Driving: May Drive Today Showering/Bathing: May Shower Notify Provider of: Increased Pain, Nausea and/or Vomiting Other/Special Instructions: 1. Followup with your regular provider on 07/07/16 with recommended EKG, CBC, comprehensive metabolic panel, troponin I, CK, CK-MB , and BNP. 2. Home O2 at 4 L per minute by nasal cannula until otherwise directed by your regular provider. 3. Strongly consider discontinuation of alcohol use JESUS with substance abuse counseling strongly recommended as discussed. 4. Stop all tobacco use JESUS as directed/per provided information and consider contacting [employer], etc.. 5. Consider lung function test/PFTs and discuss this with your regular provider. 6. CBC, comprehensive metabolic panel, and TIBC panel should be conducted in one month. 7. Whole-body bone scan in this facility on 07/08/16 with this facility to contact you with an exact details. Results to be discussed with your regular provider within the next week. - Discharge Plan Prescriptions/Med Rec: Amoxicillin/Potassium Clav [Augmentin 875-125 Tablet] 1 each PO BIDMEALS #20 tablet Azithromycin [Zithromax] 500 mg PO QPM #7 tablet Dextromethorphan/guaiFENesin [Mucinex DM ER 600-30 MG] 1 tab PO BID #20 tab.er Ferrous Sulfate 325 mg PO BID #60 tablet Thiamine [Vitamin B-1] 100 mg PO DAILY #100 tablet Home Medications: Home Meds Albuterol/Ipratropium [Combivent] 2 puff INH QID #1 mdi 09/17/13 [Rx] Amoxicillin/Potassium Clav [Augmentin 875-125 Tablet] 1 each PO BIDMEALS #20 tablet 07/06/16 [Rx] Azithromycin [Zithromax] 500 mg PO QPM #7 tablet 07/06/16 [Rx] Dextromethorphan/guaiFENesin [Mucinex DM ER 600-30 MG] 1 tab PO BID #20 tab.er 07/06/16 [Rx] Ferrous Sulfate 325 mg PO BID #60 tablet 07/06/16 [Rx] Thiamine [Vitamin B-1] 100 mg PO DAILY #100 tablet 07/06/16 [Rx] Patient Handouts: Dextromethorphan; Guaifenesin tablets, Ceftriaxone injection , Azithromycin for infusion, Community-Acquired Pneumonia, Adult, Iron Deficiency Anemia, Adult, Fat and Cholesterol Restricted Diet, Heart-Healthy Eating Plan, Ccpi-rl-Pfvs, Bone Scan, Eexr-jv-Oprz Forms: ED Department Discharge Referrals: Sharron Lockhart PA-C [Primary Care Provider] - - Discharge Summary/Plan Comment DC Time >30 min.: Yes (Coordination of care) Discharge Summary/Plan Comment: As above. Extensive precautions were given to the patient, who is in agreement with the treatment plan. See Patient Instructions for further treatment and plan. - General Info Date of Service: 07/06/16 Admission Dx/Problem (Free Text: 1. Pneumonia 2. COPD exacerbation with severe hypoxemia 3. Nonspecific abdominal pain Functional Status: Reports: pain controlled, ambulating, incentive spirometry. Denies: tolerating diet (N.p.o.), urinating, new symptoms Numeric/FACES Score: 0 - Review of Systems General: Reports: No Symptoms. Denies: Fever, Weakness, Fatigue, Malaise, Chills, Night Sweats, Appetite HEENT: Reports: sinus congestion, rhinitis. Denies: eye pain, headaches, sore throat, visual changes Pulmonary: Reports: cough, sputum, wheezing. Denies: shortness of breath, pleuritic chest pain, hemoptysis Cardiovascular: Reports: No Symptoms. Denies: Chest Pain, Palpitations, Dyspnea on Exertion, Orthopnea, PND, Edema, Lightheadedness Gastrointestinal: Reports: No symptoms, Other (Bowel movement earlier this morning was normal). Denies: Abdominal pain, Constipation, Decreased appetite, Diarrhea, Difficulty swallowing, Flatus, Hematochezia, Melena, Nausea, Vomiting Genitourinary: Reports: no symptoms. Denies: dysuria, frequency, burning, pain , urgency, incontinence, hematuria, retention, flank pain Musculoskeletal: Reports: no symptoms. Denies: neck pain, shoulder pain, arm pain, back pain, leg pain Skin: Reports: no symptoms. Denies: jaundice, diaphoresis, bruising, rash Neurological: Reports: No Symptoms. Denies: Confusion, Dizziness, Headache, Numbness, Paresthesia, Seizure, Tingling, Tremors, Weakness Psychiatric: Reports: no symptoms. Denies: confusion, depression, anxiety, agitation, cravings, hallucinations, suicidal ideation - Patient Data Vitals - Most Recent: Last Vital Signs Temp 36.5 C 07/06/16 06:00 Pulse 81 07/06/16 08:38 Resp 18 07/06/16 08:38 BP 127/82 07/06/16 08:38 Pulse Ox 95 07/06/16 08:40 Vital Signs - 24 hr 07/05/16 07/05/16 07/05/16 23:33 23:35 23:45 Temperature [ 36.8 C 36.6 C Oral] Temperature [ Temporal] Pulse, 103 H Peripheral [ Pulse Oximetry] Pulse, 103 H Peripheral [ Right Brachial] Respiratory 30 H 22 H 20 Rate Blood Pressure 143/75 H 143/75 H 133/79 [Right Upper Arm] O2 Sat by Pulse 99 97 94 L Oximetry O2 Sat by Pulse Oximetry [ Nasal Cannula] 07/06/16 07/06/16 07/06/16 00:30 00:45 01:00 Temperature [ Oral] Temperature [ Temporal] Pulse, 89 94 84 Peripheral [ Pulse Oximetry] Pulse, 94 Peripheral [ Right Brachial] Respiratory 20 20 16 Rate Blood Pressure 118/69 134/81 134/61 [Right Upper Arm] O2 Sat by Pulse 94 L 94 L 95 Oximetry O2 Sat by Pulse Oximetry [ Nasal Cannula] 07/06/16 07/06/16 07/06/16 01:30 02:21 04:00 Temperature [ 36.9 C Oral] Temperature [ Temporal] Pulse, 88 94 Peripheral [ Pulse Oximetry] Pulse, Peripheral [ Right Brachial] Respiratory 16 16 Rate Blood Pressure 113/59 L 132/88 [Right Upper Arm] O2 Sat by Pulse 95 97 94 L Oximetry O2 Sat by Pulse 97 Oximetry [ Nasal Cannula] 07/06/16 07/06/16 07/06/16 06:00 08:38 08:40 Temperature [ Oral] Temperature [ 36.5 C Temporal] Pulse, 79 81 Peripheral [ Pulse Oximetry] Pulse, Peripheral [ Right Brachial] Respiratory 16 18 Rate Blood Pressure 134/92 H 127/82 [Right Upper Arm] O2 Sat by Pulse 97 92 L Oximetry O2 Sat by Pulse 95 Oximetry [ Nasal Cannula] Weight - Most Recent: 66.27 kg I&O - Last 24 hours: Intake & Output 07/05/16 07/06/16 07/06/16 22:59 06:59 14:59 Intake Total 0 Balance 0 Imaging Impressions - Last 24 hrs: cardiac monitor shows normal sinus rhythm with heart rate in the 60s to 100s no ectopy or arrhythmia Acute abdominal x-rays shows moderate to severe COPD changes with probable pulmonary hypertension but no cardiomegaly, CHF, pneumothorax, etc.. Borderline atelectasis versus right middle lobe pulmonary infiltrates was noted. No gaseous distention, intra-abdominal calcifications, fluid levels, free air, ileus, or obstruction NOTE: See telephone consultation with radiologist as above with suspicion of possible multiple myeloma Lab Results - Last 24 hrs: Laboratory Results - last 24 hr 07/06/16 07/06/16 07/06/16 Range/Units 07:08 07:08 07:08 Hemoglobin A1c 5.3 (4.3-5.7) % Iron 48 L (50-175) ug/dL TIBC 314 (250-450) ug/dL % Saturation 15.39133 Ferritin 130 (8-388) ng/mL Creatine Kinase 103 (26-308) U/L Creatine Kinase Index 1.7 (0.0-2.5) % CK-MB (CK-2) 1.70 (0.00-3.60) ng/mL Troponin I 0.039 (0.000-0.056) ng/mL Wag-R-Sacpcxwddus Pept 127 H (0-125) pg/mL Triglycerides 20 L (30-150) mg/dL Cholesterol 219 H (100-200) mg/dL LDL Cholesterol, Calc 84 (0-100) mg/dL HDL Cholesterol 131 H (40-60) mg/dL Vitamin B12 568 (193-986) pg/mL Folate 36.5 (8.6-58.9) ng/mL Laboratory Tests 07/05/16 07/05/16 07/05/16 Range/Units 00:30 00:30 00:30 WBC (4.0-10.2) K/uL RBC (3.77-5.09) M/uL Hgb (11.7-15.5) g/dL Hct (34.0-46.0) % MCV (84.0-98.0) fL MCH (28.2-33.3) pg MCHC (31.7-36.0) g/dL RDW (11.2-14.1) % Plt Count (150-350) K/uL Neut % (Auto) (45.0-80.0) % Lymph % (Auto) (10.0-50.0) % [place] % (Auto) (2.0-14.0) % Eos % (Auto) (0.0-5.0) % Baso % (Auto) (0.0-2.0) % Neut # (Auto) (1.40-7.00) K/uL Lymph # (Auto) (0.50-3.50) K/uL [place] # (Auto) (0.00-1.00) K/uL Eos # (Auto) (0.00-0.50) K/uL Baso # (Auto) (0.00-0.20) K/uL PT 9.7 L (9.8-11.7) SEC INR 0.9 APTT 25.1 (23.5-30.0) SEC D-Dimer, Quantitative 270 (0-400) ng/mL Sodium 141 (136-145) mmol/L Potassium 3.8 (3.5-5.1) mmol/L Chloride 105 (98-107) mmol/L Carbon Dioxide 24.7 (21.0-32.0) mmol/L BUN 7 (7-18) mg/dL Creatinine 0.54 (0.51-1.17) mg/dL Est Cr Clr Drug Dosing 106.43 mL/min Estimated GFR (MDRD) > 60 mL/min Glucose 159 H (74-106) mg/dL Hemoglobin A1c (4.3-5.7) % Lactic Acid (0.4-2.0) mmol/L Uric Acid 4.6 (2.6-7.2) mg/dL Calcium 8.5 (8.5-10.1) mg/dL Magnesium 1.9 (1.8-2.4) mg/dL Iron (50-175) ug/dL TIBC (250-450) ug/dL % Saturation Ferritin (8-388) ng/mL Total Bilirubin 0.2 (0.2-1.0) mg/dL AST 45 H (15-37) U/L ALT 46 (12-78) U/L Alkaline Phosphatase 74 (46-116) IU/L Creatine Kinase 122 (26-308) U/L Creatine Kinase Index 1.5 (0.0-2.5) % CK-MB (CK-2) 1.80 (0.00-3.60) ng/mL Troponin I 0.019 (0.000-0.056) ng/mL Dju-X-Ioheqdprxkk Pept 32 (0-125) pg/mL Total Protein 6.9 (6.4-8.2) g/dL Albumin 3.3 L (3.4-5.0) g/dL Triglycerides (30-150) mg/dL Cholesterol (100-200) mg/dL LDL Cholesterol, Calc (0-100) mg/dL HDL Cholesterol (40-60) mg/dL Amylase 94 (25-115) U/L Lipase 267 (73-393) U/L Vitamin B12 (193-986) pg/mL Folate (8.6-58.9) ng/mL TSH, Ultra Sensitive 1.804 (0.358-3.740) mIU/mL HCG, Qual (NEGATIVE) Ethyl Alcohol (0.000-0.080) g/dL H. pylori IgG Antibody (NEGATIVE) 07/05/16 07/05/16 07/05/16 Range/Units 00:30 00:30 00:30 WBC (4.0-10.2) K/uL RBC (3.77-5.09) M/uL Hgb (11.7-15.5) g/dL Hct (34.0-46.0) % MCV (84.0-98.0) fL MCH (28.2-33.3) pg MCHC (31.7-36.0) g/dL RDW (11.2-14.1) % Plt Count (150-350) K/uL Neut % (Auto) (45.0-80.0) % Lymph % (Auto) (10.0-50.0) % [place] % (Auto) (2.0-14.0) % Eos % (Auto) (0.0-5.0) % Baso % (Auto) (0.0-2.0) % Neut # (Auto) (1.40-7.00) K/uL Lymph # (Auto) (0.50-3.50) K/uL [place] # (Auto) (0.00-1.00) K/uL Eos # (Auto) (0.00-0.50) K/uL Baso # (Auto) (0.00-0.20) K/uL PT (9.8-11.7) SEC INR APTT (23.5-30.0) SEC D-Dimer, Quantitative (0-400) ng/mL Sodium (136-145) mmol/L Potassium (3.5-5.1) mmol/L Chloride (98-107) mmol/L Carbon Dioxide (21.0-32.0) mmol/L BUN (7-18) mg/dL Creatinine (0.51-1.17) mg/dL Est Cr Clr Drug Dosing mL/min Estimated GFR (MDRD) mL/min Glucose (74-106) mg/dL Hemoglobin A1c (4.3-5.7) % Lactic Acid 1.6 (0.4-2.0) mmol/L Uric Acid (2.6-7.2) mg/dL Calcium (8.5-10.1) mg/dL Magnesium (1.8-2.4) mg/dL Iron (50-175) ug/dL TIBC (250-450) ug/dL % Saturation Ferritin (8-388) ng/mL Total Bilirubin (0.2-1.0) mg/dL AST (15-37) U/L ALT (12-78) U/L Alkaline Phosphatase (46-116) IU/L Creatine Kinase (26-308) U/L Creatine Kinase Index (0.0-2.5) % CK-MB (CK-2) (0.00-3.60) ng/mL Troponin I (0.000-0.056) ng/mL Fma-Y-Xytozmairom Pept (0-125) pg/mL Total Protein (6.4-8.2) g/dL Albumin (3.4-5.0) g/dL Triglycerides (30-150) mg/dL Cholesterol (100-200) mg/dL LDL Cholesterol, Calc (0-100) mg/dL HDL Cholesterol (40-60) mg/dL Amylase (25-115) U/L Lipase (73-393) U/L Vitamin B12 (193-986) pg/mL Folate (8.6-58.9) ng/mL TSH, Ultra Sensitive (0.358-3.740) mIU/mL HCG, Qual Negative (NEGATIVE) Ethyl Alcohol (0.000-0.080) g/dL H. pylori IgG Antibody Negative (NEGATIVE) 07/06/16 07/06/16 07/06/16 Range/Units 00:30 00:30 07:08 WBC 4.9 (4.0-10.2) K/uL RBC 3.91 (3.77-5.09) M/uL Hgb 13.4 D (11.7-15.5) g/dL Hct 39.8 (34.0-46.0) % MCV 101.8 H (84.0-98.0) fL MCH 34.3 H (28.2-33.3) pg MCHC 33.7 (31.7-36.0) g/dL RDW 11.9 (11.2-14.1) % Plt Count 123 L D (150-350) K/uL Neut % (Auto) 53.6 (45.0-80.0) % Lymph % (Auto) 31.8 (10.0-50.0) % [place] % (Auto) 10.5 (2.0-14.0) % Eos % (Auto) 3.5 (0.0-5.0) % Baso % (Auto) 0.6 (0.0-2.0) % Neut # (Auto) 2.62 (1.40-7.00) K/uL Lymph # (Auto) 1.55 (0.50-3.50) K/uL [place] # (Auto) 0.51 (0.00-1.00) K/uL Eos # (Auto) 0.17 (0.00-0.50) K/uL Baso # (Auto) 0.03 (0.00-0.20) K/uL PT (9.8-11.7) SEC INR APTT (23.5-30.0) SEC D-Dimer, Quantitative (0-400) ng/mL Sodium (136-145) mmol/L Potassium (3.5-5.1) mmol/L Chloride (98-107) mmol/L Carbon Dioxide (21.0-32.0) mmol/L BUN (7-18) mg/dL Creatinine (0.51-1.17) mg/dL Est Cr Clr Drug Dosing mL/min Estimated GFR (MDRD) mL/min Glucose (74-106) mg/dL Hemoglobin A1c (4.3-5.7) % Lactic Acid (0.4-2.0) mmol/L Uric Acid (2.6-7.2) mg/dL Calcium (8.5-10.1) mg/dL Magnesium (1.8-2.4) mg/dL Iron (50-175) ug/dL TIBC (250-450) ug/dL % Saturation Ferritin (8-388) ng/mL Total Bilirubin (0.2-1.0) mg/dL AST (15-37) U/L ALT (12-78) U/L Alkaline Phosphatase (46-116) IU/L Creatine Kinase 103 (26-308) U/L Creatine Kinase Index 1.7 (0.0-2.5) % CK-MB (CK-2) 1.70 (0.00-3.60) ng/mL Troponin I 0.039 (0.000-0.056) ng/mL Ezc-C-Zsqdnpkjzmi Pept 127 H (0-125) pg/mL Total Protein (6.4-8.2) g/dL Albumin (3.4-5.0) g/dL Triglycerides 20 L (30-150) mg/dL Cholesterol 219 H (100-200) mg/dL LDL Cholesterol, Calc 84 (0-100) mg/dL HDL Cholesterol 131 H (40-60) mg/dL Amylase (25-115) U/L Lipase (73-393) U/L Vitamin B12 568 (193-986) pg/mL Folate 36.5 (8.6-58.9) ng/mL TSH, Ultra Sensitive (0.358-3.740) mIU/mL HCG, Qual (NEGATIVE) Ethyl Alcohol 0.007 (0.000-0.080) g/dL H. pylori IgG Antibody (NEGATIVE) 07/06/16 07/06/16 Range/Units 07:08 07:08 WBC (4.0-10.2) K/uL RBC (3.77-5.09) M/uL Hgb (11.7-15.5) g/dL Hct (34.0-46.0) % MCV (84.0-98.0) fL MCH (28.2-33.3) pg MCHC (31.7-36.0) g/dL RDW (11.2-14.1) % Plt Count (150-350) K/uL Neut % (Auto) (45.0-80.0) % Lymph % (Auto) (10.0-50.0) % [place] % (Auto) (2.0-14.0) % Eos % (Auto) (0.0-5.0) % Baso % (Auto) (0.0-2.0) % Neut # (Auto) (1.40-7.00) K/uL Lymph # (Auto) (0.50-3.50) K/uL [place] # (Auto) (0.00-1.00) K/uL Eos # (Auto) (0.00-0.50) K/uL Baso # (Auto) (0.00-0.20) K/uL PT (9.8-11.7) SEC INR APTT (23.5-30.0) SEC D-Dimer, Quantitative (0-400) ng/mL Sodium (136-145) mmol/L Potassium (3.5-5.1) mmol/L Chloride (98-107) mmol/L Carbon Dioxide (21.0-32.0) mmol/L BUN (7-18) mg/dL Creatinine (0.51-1.17) mg/dL Est Cr Clr Drug Dosing mL/min Estimated GFR (MDRD) mL/min Glucose (74-106) mg/dL Hemoglobin A1c 5.3 (4.3-5.7) % Lactic Acid (0.4-2.0) mmol/L Uric Acid (2.6-7.2) mg/dL Calcium (8.5-10.1) mg/dL Magnesium (1.8-2.4) mg/dL Iron 48 L (50-175) ug/dL TIBC 314 (250-450) ug/dL % Saturation 15.30338 Ferritin 130 (8-388) ng/mL Total Bilirubin (0.2-1.0) mg/dL AST (15-37) U/L ALT (12-78) U/L Alkaline Phosphatase (46-116) IU/L Creatine Kinase (26-308) U/L Creatine Kinase Index (0.0-2.5) % CK-MB (CK-2) (0.00-3.60) ng/mL Troponin I (0.000-0.056) ng/mL Nbn-F-Qaerqnssfbi Pept (0-125) pg/mL Total Protein (6.4-8.2) g/dL Albumin (3.4-5.0) g/dL Triglycerides (30-150) mg/dL Cholesterol (100-200) mg/dL LDL Cholesterol, Calc (0-100) mg/dL HDL Cholesterol (40-60) mg/dL Amylase (25-115) U/L Lipase (73-393) U/L Vitamin B12 (193-986) pg/mL Folate (8.6-58.9) ng/mL TSH, Ultra Sensitive (0.358-3.740) mIU/mL HCG, Qual (NEGATIVE) Ethyl Alcohol (0.000-0.080) g/dL H. pylori IgG Antibody (NEGATIVE) NATALI Results - Last 24 hrs: Microbiology 07/06/16 01:05 Nasopharyngeal Swab - Nare, Left Influenza Type A Antigen Screen - Final NEGATIVE INFLUENZA A VIRUS AG 07/06/16 01:05 Nasopharyngeal Swab - Nare, Left Influenza Type B Antigen Screen - Final NEGATIVE INFLUENZA B VIRUS AG 07/05/16 23:40 Stool / Feces - Stool, Formed Stool Occult Blood (NATALI) - Final NEGATIVE OCCULT BLOOD Med Orders - Current: Current Medications Acetaminophen (Tylenol) 650 mg PO Q4H PRN PRN Reason: Pain (Mild 1-3)/fever Albuterol (Proventil Neb Soln) 2.5 mg INH Q2H PRN PRN Reason: SHORTNESS OF BREATH Albuterol/Ipratropium (Duoneb 3.0-0.5 Mg/3 Ml) 3 ml NEB Q4HRRT PRN PRN Reason: Dyspnea Albuterol/Ipratropium (Duoneb 3.0-0.5 Mg/3 Ml) 3 ml NEB Q6HRRT [facility] Last Admin: 07/06/16 08:25 Dose: 3 ml Budesonide (Pulmicort) 0.5 mg NEB BIDRT [facility] Last Admin: 07/06/16 08:26 Dose: 0.5 mg Guaifenesin/Dextromethorphan (Mucinex Dm Er 600-30 Mg) 1 tab PO BID [facility] Last Admin: 07/06/16 08:25 Dose: 1 tab Ceftriaxone Sodium 1 gm/ (Sodium Chloride) 100 mls @ 200 mls/hr IV Q12H [facility] Last Admin: 07/06/16 04:14 Dose: 200 mls/hr Azithromycin 500 mg/ Sodium (Chloride) 250 mls @ 250 mls/hr IV Q24H [facility] Last Admin: 07/06/16 05:10 Dose: 250 mls/hr Lorazepam (Ativan) 1 mg IVPUSH Q6H PRN PRN Reason: Withdrawal Symptoms Sodium Chloride (Saline Flush) 10 ml FLUSH ASDIRECTED PRN PRN Reason: Keep Vein Open Last Admin: 07/06/16 04:15 Dose: 10 ml Sodium Chloride (Saline Flush) 10 ml FLUSH Q12H PRN PRN Reason: Keep Vein Open Temazepam (Restoril) 15 mg PO BEDTIME PRN PRN Reason: Insomnia Discontinued Medications Albuterol/Ipratropium (Duoneb 3.0-0.5 Mg/3 Ml) 3 ml NEB ONETIME ONE Stop: 07/05/16 23:35 Last Admin: 07/05/16 23:39 Dose: 3 ml Budesonide (Pulmicort) 0.5 mg NEB ONETIME ONE Stop: 07/05/16 23:35 Last Admin: 07/06/16 00:49 Dose: 0.5 mg Famotidine (Pepcid) 40 mg IVPUSH ONETIME ONE Stop: 07/05/16 23:41 Last Admin: 07/06/16 00:53 Dose: 40 mg Azithromycin 500 mg/ Sodium (Chloride) 250 mls @ 250 mls/hr IV Q24H [facility] Last Admin: 07/06/16 04:19 Dose: Not Given Ceftriaxone Sodium 1 gm/ (Sodium Chloride) 100 mls @ 200 mls/hr IV Q12H [facility] Last Admin: 07/06/16 04:19 Dose: Not Given Methylprednisolone Sodium Succinate (Solu-Medrol) 125 mg IVPUSH ONETIME ONE Stop: 07/05/16 23:35 Last Admin: 07/05/16 23:39 Dose: 125 mg - Exam Quality Assessment: Reports: supplemental oxygen, DVT prophylaxis. Denies: urine catheter, skin breakdown, restraints General: Reports: alert, oriented, cooperative, no acute distress HEENT: Reports: Pupils equal, Pupils reactive, EOMI, Mucous membr. moist/pink. Denies: Scleral icterus Neck: Reports: supple, trachea midline, no JVD, no thyromegaly, +2 carotid pulse wo bruit. Denies: lymphadenopathy Lungs: Reports: Normal respiratory effort, Rales (Mild bilateral basilar rales) , Rhonchi (Occasional although improved from admission), Wheezing (Mild diffuse bilateral however improved from admission). Denies: Rub Cardiovascular: Reports: Regular Rate, Regular Rhythm, No Murmurs, Murmurs. Denies: Gallops, Rubs Abdomen: Reports: bowel sounds present, soft, no tenderness, no distension. Denies: rebound, guarding, CVA tenderness (Female) Exam: Deferred Rectal (Female) Exam: Deferred Back Exam: Reports: normal inspection, full range of motion. Denies: CVA tenderness (L), CVA tenderness (R), muscle spasm Extremities: Reports: no edema, normal pulses, no tenderness/swelling, no calf tenderness Skin: Reports: warm, dry, intact. Denies: rash, ecchymosis Neurological: Reports: no new focal deficit Psy/Mental Status: Reports: alert, anxious (Mild), depressed (Mild). Denies: agitated, suicidal ideation, homicidal ideation, withdrawal symptoms EKG INTERPRETATION EKG Date: 07/06/16 Time: 07:39 Rhythm: NSR Rate (beats/min): 67 Sheldon: normal (Neutral cardiac axis) P-wave: enlarged (Diffuse biphasic P waves-mild) QRS: normal (QRS interval 0.09 seconds representing repolarization changes with T-wave inversion in lead V1) ST-T: normal QT: normal NV/PQ Interval: 0.15 seconds Comparison: no change (Since 07/05/16) EKG Interpretation Comments: No acute ischemic changes *Q Meaningful Use (DIS) - VTE *Q VTE Criteria *Q: - Stroke *Q Stroke Criteria *Q: - AMI *Q AMI Criteria *Q:
[2016-07-06] MEDS ORDERED: Thiamine 100 MG Tab PO SCH (10:15)
== END 2016-07-06 12:19 | disposition left against medical advice (07) | DRG 190 ==
LOC: LL.ED 23:32 → LL.MS 07-06 02:02
PROVIDERS: ADMIT Family Medicine; ATTEND Family Medicine
DX: J44.0 Chronic obstructive pulmonary disease with (acute) lower respiratory infection (principal); J18.9 Pneumonia, unspecified organism; J44.1 Chronic obstructive pulmonary disease with (acute) exacerbation; R10.9 Unspecified abdominal pain; F10.10 Alcohol abuse, uncomplicated; D75.89 Other specified diseases of blood and blood-forming organs; M19.90 Unspecified osteoarthritis, unspecified site; D69.6 Thrombocytopenia, unspecified; F17.200 Nicotine dependence, unspecified, uncomplicated; E78.00 Pure hypercholesterolemia, unspecified; E61.1 Iron deficiency; R09.02 Hypoxemia; Z85.79 Personal history of other malignant neoplasms of lymphoid, hematopoietic and related tissues
CPT/HCPCS: 36415; 74022; 80053; 80061; 82150; 82272; 82550; 82553; 82607; 82728; 82746; 83036; 83540; 83550; 83605; 83690; 83735; 83880; 84165; 84443; 84484; 84550; 84703; 85025; 85379; 85610; 85730; 86318; 87040; 87804; 93005; 94640; 94664; 96374; 96375; 99285; A9270-GY; G0480; J0456; J0696; J2930; J7050; S0028

== ENCOUNTER 2017-01-16 19:01 | Emergency (ER) | payer MEDICAID ==
[2017-01-16] MEDS ORDERED: Bacitracin/Neomycin/Polymyxin B Oint 0.9 GM U/D Packet TOP ONE (19:26)
[2017-01-16] MEDS ORDERED: Diphtheria,Pertussis(Acell),Tetanus Vaccine 0.5 ML SDV IM ONE (19:27)
--- NOTE | 2017-01-16 19:34 | EDM.PDOC ---
ED HPI GENERAL MEDICAL PROBLEM - General Chief Complaint: Laceration Stated Complaint: fish hook in cheek Time Seen by Provider: 01/16/17 19:10 History Limitations: Reports: No Limitations - History of Present Illness INITIAL COMMENTS - FREE TEXT/NARRATIVE: Patient is a 51-year-old who was seen in the ER with a history of foreign body in right cheek patient states that she was cleaning the garage when she got to the fishing rods there were tangled and she pulled 01 and the fishhook flew and hit her on the right cheek Onset: Today Duration: Minutes: Location: Reports: Face Quality: Reports: Pressure, Stabbing Severity: Moderate Improves with: Reports: None Worsens with: Reports: Movement Context: Reports: Activity Associated Symptoms: Reports: No Other Symptoms - Related Data Allergies Allergy/AdvReac Type Severity Reaction Status Date / Time No Known Allergies Allergy Verified 01/16/17 19:05 Home Meds: Home Meds Aspirin [Halfprin] 81 mg PO DAILY 01/16/17 [History] Past Medical History HEENT History: Reports: Allergic Rhinitis, Other (See Below) Other HEENT History: Allergic rhinitis as a child currently nonproblematic Cardiovascular History: Reports: Arrhythmia, Other (See Below) Other Cardiovascular History: Repolarization changes versus borderline incomplete right bundle branch block Respiratory History: Reports: Asthma, COPD, Pulmonary Fibrosis, Other (See Below ) Other Respiratory History: Asthma as a child with secondary COPD and pulmonary fibrosis likely secondary to tobacco abuse Gastrointestinal History: Reports: None. Denies: Celiac Disease, Cholelithiasis , Chronic Constipation, Chronic Diarrhea, Cirrhosis, Colon Polyp, Fecal Incontinence, Gastritis, GERD, GI Bleed, Hepatitis, Inflammatory Bowel Disease, Irritable Bowel Syndrome, Jaundice, Pancreatitis, PUD Genitourinary History: Reports: None. 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 Denies: Dysfunctional Uterine Bleeding, Endometriosis, Spontaneous Musculoskeletal History: Reports: Osteoarthritis, Other (See Below) Other Musculoskeletal History: Right anterior cruciate ligament tear in August 2015 , right-sided popliteal cyst Neurological History: Reports: None. Denies: Brain Injury, Cerebral Aneurysms, Concussion, CVA, Headaches, Chronic, Head Trauma, Migraines, Neuropathy, Peripheral, Seizure, TIA Psychiatric History: Reports: Addiction, Anxiety, Depression, Other (See Below) Other Psychiatric History: Alcohol abuse as below, no current treatment for anxiety depression disorder Endocrine/Metabolic History: Reports: None. Denies: Diabetes, Type I, Diabetes , Type II, Hypothyroidism, IDDM Hematologic History: Reports: None. Denies: Anemia, Blood Transfusion(s), Iron Deficiency Immunologic History: Reports: None. Denies: AIDS, HIV, SLE Oncologic (Cancer) History: Reports: None. Denies: Basal Cell Carcinoma, Cervix , Leukemia, Malignant Melanoma, Non-Hodgkin's Lymphoma, Squamous Cell Carcinoma Dermatologic History: Reports: None. Denies: Eczema, Psoriasis - Infectious Disease History Infectious Disease History: Reports: Mononucleosis (Age 13). Denies: C- Difficile, Chicken Pox, Measles, Meningitis, MRSA, Pertussis (Whooping Cough), Rheumatic Fever, RSV, Rubella, Scarlet Fever, Shingles, TB, VRE - Past Surgical History HEENT Surgical History: Reports: Adenoidectomy, Oral Surgery, Tonsillectomy, Other (See Below) Neurological Surgical History: Reports: C-Spine, Spinal Fusion, Other (See Below ) - Past Imaging History Past Imaging History: Reports: MRI (Right knee on 08/25/15) Social & Family History - Family History Family Medical History: Unobtainable HEENT: Reports: None. Denies: Allergic Rhinitis, Glaucoma, Macular Degeneration , Retinal Detachment Cardiac: Reports: CAD, AZ, Other (See Below) Other Cardiac Family History: Paternal aunts x4 with history of AZ with 2 of them dying in their 60s from a fatal AZ, maternal aunt with fatal AZ at age 77, maternal grandmother with fatal AZ in her 60s Respiratory: Reports: COPD, Other (See Below) Other Respiratory Family Hisory: Mother with COPD GI: Reports: None. Denies: Celiac Disease, Cholelithiasis, Colon Polyps, GERD, GI bleed, Inflammatory Bowel Disease, Irritable Bowel Syndrome, PUD : Reports: None. Denies: Dialysis, Renal Disease/Insufficiency OBGYN: Reports: None. Denies: Dysfunctional uterine bleeding, Endometriosis, Recurrent Spontaneous Musculoskeletal: Reports: None. Denies: Gout, Osteoarthritis, RA, SLE Neurological: Reports: None. Denies: Alzheimers Disease, Cerebral Aneurysms, CVA, Dementia, Migraines, MS, Parkinson's, Seizure, TIA Psychiatric: Reports: Anxiety, Depression, Other (See Below) Other Psychiatric Family History: Almost all family members on both paternal and maternal sides have problems with anxiety depression disorder and alcohol abuse Endocrine/Metabolic: Reports: None. Denies: Diabetes, Type I, Diabetes, type II , Hypothyroidism, IDDM Hematologic: Reports: None. Denies: Anemia, Transfusion Reaction Immunologic: Reports: None. Denies: AIDS, HIV, SLE Dermatologic: Reports: None. Denies: Eczema, Psoriasis Oncologic: Reports: Lung, Metastatic, Skin, Other (See Below) Other Oncologic Family History: Father with fatal metastatic skin cancer/ melanoma at age 73, maternal aunt with fatal lung cancer in her 60s with history of tobacco use - Tobacco Use Smoking Status *Q: Current Every Day Smoker Years of Tobacco use: 40 Packs/Tins Daily: 1 (Maximum use of 2 packs per day with patient starting smoking at age 11) Used Tobacco, but Quit: No Second Hand Smoke Exposure: No - Caffeine Use Caffeine Use: Reports: Coffee (1 cup of coffee per day). Denies: Energy Drinks , Soda, Tea - Alcohol Use Days Per Week of Alcohol Use: 7 (Patient admits to alcohol abuse since about age 16 with no history of DWI or previous alcohol treatment) Number of Drinks Per Day: 15 (Usually beer) Total Drinks Per Week: 105 - Recreational Drug Use Recreational Drug Use: Yes Drug Use in Last 12 Months: No Recreational Drug Type: Reports: Marijuana/Hashish (Smoked on a daily basis in her teenage years and her 20s). Denies: Amphetamines (Speed), Cocaine, Heroin, Inhalants (Glues, Solvents, Aerosols), LSD (Acid), Methamphetamine, Morphine - Living Situation & Occupation Living situation: Reports: , with Significant Other Occupation: Unemployed ED ROS GENERAL - Review of Systems Review Of Systems: See Below Constitutional: Reports: No Symptoms HEENT: Reports: No Symptoms Respiratory: Reports: No Symptoms Cardiovascular: Reports: No Symptoms Endocrine: Reports: No Symptoms GI/Abdominal: Reports: No Symptoms : Reports: No Symptoms Musculoskeletal: Reports: No Symptoms Skin: Reports: No Symptoms Neurological: Reports: No Symptoms Psychiatric: Reports: No Symptoms Hematologic/Lymphatic: Reports: No Symptoms Immunologic: Reports: No Symptoms ED EXAM, SKIN/RASH Exam: See Below Exam Limited By: No Limitations General Appearance: Alert, WD/WN, No Apparent Distress Ears: Normal External Exam, Normal Canal, Hearing Grossly Normal, Normal TMs Nose: Normal Inspection, Normal Mucosa, No Blood Throat/Mouth: Normal Inspection, Normal Lips, Normal Teeth, Normal Gums, Normal Oropharynx, Normal Voice, No Airway Compromise Head: Facial Swelling, Other (Patient got hold with a fishing ON the right side of the face) Neck: Normal Inspection, Supple, Non-Tender, Full Range of Motion Respiratory/Chest: No Respiratory Distress, Lungs Clear, Normal Breath Sounds, No Accessory Muscle Use, Chest Non-Tender Cardiovascular: Normal Peripheral Pulses, Regular Rate, Rhythm, No Edema, No Gallop, No JVD, No Murmur, No Rub GI/Abdominal: Normal Bowel Sounds, Soft, Non-Tender, No Organomegaly, No Distention, No Abnormal Bruit, No Mass (Female) Exam: Deferred Rectal (Female) Exam: Deferred Back Exam: Normal Inspection, Full Range of Motion, NT Extremities: Normal Inspection, Normal Range of Motion, Non-Tender, No Pedal Edema, Normal Capillary Refill Neurological: Alert, Oriented, CN II-XII Intact, Normal Cognition, Normal Gait, Normal Reflexes, No Motor/Sensory Deficits Psychiatric: Normal Affect, Normal Mood Lymphatic: No Adenopathy ED SKIN PROCEDURES - Foreign Body Removal Indication:: Patient is a 51-year-old who was cleaning the garage when she got into the fishing poles she said to the fishing poles were tangled up she pulled a 1 and got on the right side of her spell face cheek area Area was prepped and cleaned with high blood complaints using 1% Xylocaine the area was numbed up the fishhook was pushed through the skin using a sterile pliers the steve was cut and the fishhook was removed patient tolerated well area was cleaned with Betadine Neosporin applied tenderness updated with DTaP Consent Obtained:: Patient Foreign Body Other Location Comment:: Right cheek area Anesthesia Type: Local Anesthesia Other:: 1% Xylocaine Complications:: No Course - Orders/Labs/Meds Orders: Active Orders 24 hr Category Date Time Status Vaccines to be Administered [RC] PER UNIT ROUTINE Care 01/16/17 19:27 Ordered Meds: Medications Discontinued Medications Generic Name Dose Route Start Last Admin Trade Name Freq PRN Reason Stop Dose Admin Diphtheria/Tetanus/Acell Pertussis 0.5 ml 01/16/17 19:27 01/16/17 19:32 Adacel IM 01/16/17 19:28 0.5 ml .ONCE ONE Administration Lidocaine HCl 5 ml 01/16/17 19:09 Xylocaine-Mpf 1% INJECT 01/16/17 19:10 ONETIME ONE Neomycin/Polymyxin/Bacitracin 1 each 01/16/17 19:26 01/16/17 19:33 Triple Antibiotic Oint TOP 01/16/17 19:27 1 each ONETIME ONE Administration Departure - Departure Time of Disposition: 19:37 Disposition: Home, Self-Care 01 Condition: Good Clinical Impression: Removal of foreign body - Discharge Information Referrals: Anna Melvin PA-C [Primary Care Provider] - Forms: ED Department Discharge Care Plan Goals: Foreign body removed as above patient. Tetanus toxoid started on Augmentin 875 twice a day for 10 days the facial appeared nate but clean - My Orders Last 24 Hours: My Active Orders 01/16/17 19:27 Vaccines to be Administered [RC] PER UNIT ROUTINE - Assessment/Plan Last 24 Hours: My Active Orders 01/16/17 19:27 Vaccines to be Administered [RC] PER UNIT ROUTINE
[2017-01-16 21:02] VITALS: BP 114/65
== END 2017-01-16 19:55 | disposition home or self-care (01) ==
LOC: LL.ED 19:01
DX: S00.85XA Superficial foreign body of other part of head, initial encounter (principal); J44.9 Chronic obstructive pulmonary disease, unspecified; F32.9 Major depressive disorder, single episode, unspecified; F17.210 Nicotine dependence, cigarettes, uncomplicated; Z98.890 Other specified postprocedural states; Z79.82 Long term (current) use of aspirin; W45.8XXA Other foreign body or object entering through skin, initial encounter; Z23 Encounter for immunization
CPT/HCPCS: 90471; 90715; 99283

== ENCOUNTER 2017-09-25 17:58 | Emergency (ER) | payer MEDICAID ==
[2017-09-25] MEDS ORDERED: methylPREDNISolone Sodium Succinate 125 MG/2 ML SDV IVPUSH ONE (17:59)
[2017-09-25] MEDS ORDERED: Morphine 2 MG/ML Syringe IVPUSH ONE (18:00)
[2017-09-25] MEDS ORDERED: Ondansetron 4 MG/2 ML SDV IVPUSH ONE (18:00)
[2017-09-25] MEDS ORDERED: Sodium Chloride 0.9% 10 ML Syringe FLUSH PRN (18:06)
[2017-09-25] MEDS ORDERED: LORazepam 2 MG/ML SDV IVPUSH ONE (18:08)
[2017-09-25] MEDS: Sodium Chloride 0.9% 10 ML Syringe FLUSH PRN ×2 (18:14→18:15)
[2017-09-25 18:20] LABS: CHLORIDE,CL 106 mmol/L (98-107); SODIUM,NA 140 mmol/L (136-145)
[2017-09-25] MEDS ORDERED: Albuterol/Ipratropium 3.0-0.5 MG/3 ML Neb Soln ONE (18:23)
[2017-09-25] MEDS ORDERED: Albuterol/Ipratropium 3.0-0.5 MG/3 ML Neb Soln NEB ONE (18:23)
[2017-09-25] MEDS ORDERED: Levofloxacin/Dextrose 5%-Water 500 MG in Premix Bag 1 BAG IV ONE (18:27)
[2017-09-25 18:30] LABS: O2 DELIVERY DEVICE NON REBR MASK
[2017-09-25 18:31] LABS: BASE EXCESS ARTERIAL -4 mmol/L (-2-3); O2 SATURATION ARTERIAL 88 % (95-98); PCO2 ARTERIAL 69 mmHG (35-45); PO2 ARTERIAL 71 mmHG (80-105)
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
[2017-09-25 20:10] VITALS: BP 132/85
== END 2017-09-25 19:18 ==
LOC: LL.ED 17:58
DX: J44.1 Chronic obstructive pulmonary disease with (acute) exacerbation (principal); Z79.82 Long term (current) use of aspirin; Z99.81 Dependence on supplemental oxygen
CPT/HCPCS: 36415; 71045; 80053; 82803; 83735; 85025; 94640; 94660; 96365; 96375; 99291; 99292; G0480; J1956; J2060; J2270; J2405; J2930; J7050

== ENCOUNTER 2018-09-22 01:06 | Inpatient (IN) | payer MEDICAID ==
[2018-09-22] MEDS ORDERED: cefTRIAXone 1 GM in Sodium Chloride 0.9% 100 ML IV ONE (01:08)
[2018-09-22] MEDS ORDERED: Budesonide 0.5 MG/2 ML Neb Susp NEB ONE (01:08)
[2018-09-22] MEDS ORDERED: Levofloxacin/Dextrose 5%-Water 500 MG in Premix Bag 1 BAG IV ONE (01:08)
--- NOTE | 2018-09-22 01:08 | EDM.PDOC ---
ED HPI GENERAL MEDICAL PROBLEM - General Chief Complaint: General Stated Complaint: shortness of breath. Time Seen by Provider: 09/22/18 01:08 Source of Information: Reports: Patient, Old Records ([facility] chart/EMR) History Limitations: Reports: Respiratory Distress - History of Present Illness INITIAL COMMENTS - FREE TEXT/NARRATIVE: The patient was brought to the emergency room via ambulance with client customer manager accompaniment secondary to progressive dyspnea and exacerbation of her COPD. Secondary to her severe dyspnea and moderate respiratory distress she was unable to give a complete history either to this provider or the paramedics. Paramedics found the patient attached to her nebulizer unit with no O2 supplementation at that time. Her O2 sat was only 80% at time of their arrival with the patient showing significant retractions and tripoding. The client customer manager had 2 failed IV attempts with the patient's O2 sat improved to 95% after a DuoNeb treatment with patient arriving with a mask at 10 L/m by nasal cannula. Patient apparently had some nonspecific left-sided chest pressure yesterday evening and throughout the day, however she denies any chest pain or any other anginal-type symptoms at this time. No recent history of abdominal pain, heartburn, nausea, diarrhea, melena, gross hematochezia, or any food intolerance , including fatty foods, etc.. She has had a progressive white productive cough , wheezing, dyspnea during the last couple of weeks. Onset: Gradual Duration: Week(s): (As above) Location: Reports: Other (No pain) Quality: Reports: Same as Previous Episode Improves with: Reports: None Worsens with: Reports: None Context: Denies: Sick Contact, Trauma Associated Symptoms: Reports: Chest Pain, Cough, cough w sputum, Shortness of Breath. Denies: Confusion, Diaphoresis, Fever/Chills, Headaches, Loss of Appetite, Malaise, Nausea/Vomiting, Seizure, Syncope Treatments ASSEMBLER SEAT: Reports: Breathing Treatments, Other Medication(s), Oxygen - Related Data Allergies Allergy/AdvReac Type Severity Reaction Status Date / Time No Known Allergies Allergy Verified 12/31/17 18:39 Home Meds: Home Meds Aspirin [Halfprin] 81 mg PO DAILY 01/16/17 [History] Budesonide/Formoterol Fumarate [Symbicort 160-4.5 Mcg Inhaler] 1 puff IH DAILY 12/31/17 [History] Cyanocobalamin (Vitamin B-12) [Vitamin B-12] 2,000 mcg PO DAILY 12/31/17 [ History] Ferrous Sulfate [Iron] 325 mg PO DAILY 12/31/17 [History] Ipratropium/Albuterol Sulfate [Iprat-Albut 0.5-3(2.5) MG/3 ML] 3 ml NEB QID [History] Non-Formulary Medication [NF Drug] 1 applic SL ASDIRECTED PRN 09/22/18 [History] Past Medical History HEENT History: Reports: Allergic Rhinitis, Other (See Below). Denies: Cataract , Glaucoma, Hard of Hearing, Impaired Vision, Otitis Media, Retinal Detachment Other HEENT History: Allergic rhinitis as a child currently nonproblematic Cardiovascular History: Reports: Arrhythmia, High Cholesterol, Other (See Below) . Denies: Afib, Aneurysm, Blood Clots/VTE/DVT, CAD, Heart Failure, Heart Murmur , Hypertension, VA, PVD, Syncope Other Cardiovascular History: Repolarization changes versus borderline incomplete right bundle branch block Respiratory History: Reports: Asthma, Bronchitis, Recurrent, COPD, Pneumonia, Recurrent, Pulmonary Fibrosis, SOB, Other (See Below). Denies: Intubation, Difficult, Intubation, Previous, PE, Pneumothorax, Sleep Apnea, TB Other Respiratory History: Asthma as a child with secondary COPD and pulmonary fibrosis likely secondary to tobacco abuse. O2 dependent COPD currently used on a 34 L/m when necessary basis. Gastrointestinal History: Reports: None. Denies: Celiac Disease, Cholelithiasis , Chronic Constipation, Chronic Diarrhea, Colon Polyp, Diverticulosis, Fecal Incontinence, Gastritis, GERD, GI Bleed, Hepatitis, Hiatal Hernia, Inflammatory Bowel Disease, Irritable Bowel Syndrome, Jaundice, Pancreatitis, PUD Genitourinary History: Reports: None. Denies: Acute Renal Failure, Chronic Renal Insuffiency, Renal Calculus, STD, Urinary Incontinence, UTI, Recurrent ACTUARIAL ASSISTANT History: Reports: . Denies: Dysfunctional Uterine Bleeding, Endometriosis, Fibroids, Spontaneous , Therapeutic : 2 Para: 2 LMP (Approximate): Other (See Below) Other ACTUARIAL ASSISTANT History: Full term without complications during pregnancies or deliveries Musculoskeletal History: Reports: Arthritis, Fracture, Osteoarthritis, Osteoporosis, Other (See Below). Denies: Back Pain, Chronic, Gout, Neck Pain, Chronic, RA, SLE Other Musculoskeletal History: Old cervical dens fracture by MRI on 05/23/17. Right anterior cruciate ligament tear in August 2015; right-sided popliteal cyst. Neurological History: Reports: None. Denies: Cerebral Aneurysms, CVA, Headaches , Chronic, Head Trauma, Migraines, Neuropathy, Diabetic, Neuropathy, Peripheral , Parkinson's, Seizure, TIA Psychiatric History: Reports: Addiction, Anxiety, Depression, Other (See Below) . Denies: Abuse, Victim of, ADD, ADHD, Alzheimers Disease, Psych Hospitalization(s), Psychosis, PTSD, Suicide Attempt, Suicidal Ideation Other Psychiatric History: Alcohol abuse as below, no current treatment for anxiety depression disorder Endocrine/Metabolic History: Reports: Osteopenia, Osteoporosis, Other (See Below ). Denies: Diabetes, Gestational, Diabetes, Type I, Diabetes, Type II, Diabetes Mellitus, Type 3c, Hypothyroidism, IDDM, Obesity/BMI 30+ Other Endocrine/Metabolic History: Hypoalbuminemia Hematologic History: Reports: Anemia, Iron Deficiency, Other (See Below). Denies: Blood Transfusion(s) Other Hematologic History: Thrombocytopenia Immunologic History: Reports: None. Denies: AIDS, HIV, SLE Oncologic (Cancer) History: Reports: Other (See Below). Denies: Basal Cell Carcinoma, Breast, Cervix, Hodgkin's Lymphoma, Leukemia, Lymphoma, Malignant Melanoma, Non-Hodgkin's Lymphoma, Ovarian, Squamous Cell Carcinoma, Uterine Other Oncologic History: Multiple myeloma. Dermatologic History: Reports: None. Denies: Eczema, Psoriasis - Infectious Disease History Infectious Disease History: Reports: Mononucleosis (Age 13). Denies: C- Difficile, Chicken Pox, Measles, Meningitis, MRSA, Mumps, Pertussis (Whooping Cough), Rheumatic Fever, Rubella, Scarlet Fever, Shingles, TB, VRE - Past Surgical History Head Surgeries/Procedures: Reports: None HEENT Surgical History: Reports: Adenoidectomy, Oral Surgery, Tonsillectomy, Other (See Below). Denies: Cataract Surgery, Eye Surgery, Laser Surgery, LASIK , Myringotomy w Tube(s), Naso-Sinus Surgery Other HEENT Surgeries/Procedures: Tonsillectomy and adenoidectomy at 5 years of age. [place] teeth extraction 4 at age 18 Cardiovascular Surgical History: Reports: None. Denies: Varicose Respiratory Surgical History: Reports: None. Denies: Thoracentesis GI Surgical History: Reports: None. Denies: Appendectomy, Cholecystectomy, Colonoscopy, EGD, Hernia, Abdominal, Hernia, Inguinal, Hernia Repair/Other, Polypectomy Female Surgical History: Reports: None. Denies: Breast Biopsy, Section, D&C, Hysterectomy, Salpingo-Oophorectomy, Tubal Ligation Endocrine Surgical History: Reports: None Neurological Surgical History: Reports: C-Spine, Spinal Fusion, Other (See Below ). Denies: Discectomy, Laminectomy, Lumbar Spine, Sacral Spine, Thoracic Spine , Vertebroplasty Other Neurological Surgeries/Procedures: C1-C2 posterior spinal fusion by MRI with graft from right hip at age 23 and 24. Musculoskeletal Surgical History: Reports: None. Denies: Arthroscopic Procedure , Carpal Tunnel, Ganglion Cyst, Joint Replacement, ORIF, Shoulder Surgery Oncologic Surgical History: Reports: None Dermatological Surgical History: Reports: None - Past Imaging History Past Imaging History: Reports: DEXA Scan (05/23/17.), MRI (MRI of the C-spine on 05/23/17. Right knee on 08/25/15), Ultrasound (Soft tissue right wrist ultrasound on 08/31/17) Social & Family History - Family History Family Medical History: Unobtainable HEENT: Reports: None. Denies: Allergic Rhinitis, Glaucoma, Macular Degeneration , Retinal Detachment Cardiac: Reports: CAD, VA, Other (See Below). Denies: Afib, Aneurysm, Arrhythmia, Blood Clots/VTE/DVT, Bypass, Heart Failure, Heart Murmur, High Cholesterol, Hypertension, Pacemaker, PVD/COD, Stent, Syncope Other Cardiac Family History: Paternal aunts x4 with history of VA with 2 of them dying in their 60s from a fatal VA, maternal aunt with fatal VA at age 77, maternal grandmother with fatal VA in her 60s Respiratory: Reports: COPD, Other (See Below). Denies: Asthma, PE, Pneumothorax , Sleep Apnea Other Respiratory Family Hisory: Mother with COPD GI: Reports: None. Denies: Celiac Disease, Cholelithiasis, Colon Polyps, GERD, GI bleed, Inflammatory Bowel Disease, Irritable Bowel Syndrome, PUD : Reports: None. Denies: Dialysis, Renal Calculus, Renal Disease/ Insufficiency OBGYN: Reports: None. Denies: Dysfunctional uterine bleeding, Endometriosis, Fibroids, Recurrent Spontaneous Musculoskeletal: Reports: None. Denies: Gout, RA, SLE Neurological: Reports: None. Denies: Alzheimers Disease, CVA, Dementia, Migraines, MS, Parkinson's, Seizure, TIA Psychiatric: Reports: Anxiety, Depression, Other (See Below). Denies: Abuse, Victim of, ADD, ADHD, Psych Hospitalization(s), PTSD, Suicide Attempt Other Psychiatric Family History: Almost all family members on both paternal and maternal sides have problems with anxiety depression disorder and alcohol abuse Endocrine/Metabolic: Reports: None. Denies: Diabetes, Gestational, Diabetes, Type I, Diabetes, type II, Diabetes Mellitus, Type 3c, Hypothyroidism, IDDM Hematologic: Reports: None. Denies: SLE Immunologic: Reports: None. Denies: AIDS, HIV, SLE Dermatologic: Reports: None. Denies: Eczema, Psoriasis Oncologic: Reports: Lung, Metastatic, Skin, Other (See Below). Denies: Cervix, Colon, Hodgkin's Lymphoma, Leukemia, Lymphoma, Non-Hodgkin's Lymphoma, Ovarian, Uterine Other Oncologic Family History: Father with fatal metastatic skin cancer/ melanoma at age 73, maternal aunt with fatal lung cancer in her 60s with history of tobacco use - Tobacco Use Smoking Status *Q: Current Every Day Smoker Tobacco Use Within Last Twelve Months: Cigarettes Years of Tobacco use: 42 Packs/Tins Daily: 1 Packs/Tins Daily Comment: Started smoking at age 11 maximum use of 2 packs per day. Used Tobacco, but Quit: No Smoking Cessation Information Provided To Patient: Yes Second Hand Smoke Exposure: Yes Source of Second Hand Smoke Exposure: Significant other Second Hand Smoke Education Provided: Yes - Caffeine Use Caffeine Use: Reports: Coffee (One cup per day). Denies: Energy Drinks, Soda, Tea - Alcohol Use Alcohol Use History: Yes Days Per Week of Alcohol Use: 7 Number of Drinks Per Day: 15 Number of Drinks Per Day Comment: Patient is to alcohol abuse since about age 16. No previous DWI or alcohol treatment. Total Drinks Per Week: 105 Date of Last Drink: 09/21/18 Alcohol Use in Last Twelve Months: Yes Alcohol Use Frequency: Binges - Recreational Drug Use Recreational Drug Use: Yes Drug Use in Last 12 Months: No Recreational Drug Type: Reports: Marijuana/Hashish (Daily basis and her teenage years in her 20s.). Denies: Amphetamines (Speed), Benzodiazepines, Cocaine, Heroin, Inhalants (Glues, Solvents, Aerosols), LSD (Acid), Methamphetamine, Morphine, Oxycodone Recreational Drug Route: Reports: Inhaled - Living Situation & Occupation Living situation: Reports: (2011, 2 children), with Significant Other Occupation: Unemployed (Previously worked in the [employer] department at [employer] in [place]) ED ROS GENERAL - Review of Systems Review Of Systems: ROS reveals no pertinent complaints other than HPI. ED EXAM, GENERAL - Physical Exam Exam: See Below Exam Limited By: Respiratory Distress General Appearance: Anxious (Moderate), Lethargic (Mild), Severe Distress, Thin Eye Exam: Bilateral Eye: EOMI, Normal Fundi, Normal Inspection (No nystagmus), PERRL Ears: Normal External Exam, Normal Canal, Hearing Grossly Normal, Normal TMs Nose: Normal Inspection, Normal Mucosa, No Blood Throat/Mouth: Normal Inspection, Normal Lips, Normal Teeth, Normal Gums, Normal Oropharynx, Normal Voice, No Airway Compromise. No: Dysphagia, Inflammation, Perioral Cyanosis Head: Atraumatic, Normocephalic. No: Facial Swelling, Facial Tenderness Neck: Normal Inspection, Supple, Non-Tender, Full Range of Motion. No: Carotid Bruit, Lymphadenopathy (L), Lymphadenopathy (R), Thyromegaly Respiratory/Chest: Chest Non-Tender, Respiratory Distress, Rales (Mild diffuse bilateral), Rhonchi (Mild to moderate bilateral), Wheezing (Moderate diffuse bilateral), Accessory Muscle Use, Retractions, Splinting, Prolonged Expiration. No: Pleural Rub Cardiovascular: No Edema, No Gallop, No JVD, No Murmur, No Rub, Tachycardia ( Regular rhythm). No: Gallop/S3, Gallop/S4, Friction Rub Peripheral Pulses: 2+: Radial (L), Radial (R), Dorsalis Pedis (L), Dorsalis Pedis (R) GI/Abdominal: Normal Bowel Sounds, Soft, Non-Tender, No Organomegaly, No Distention, No Abnormal Bruit, No Mass, Pelvis Stable. No: Guarding (Female) Exam: Deferred Rectal (Female) Exam: Deferred Back Exam: Normal Inspection, Full Range of Motion. No: CVA Tenderness (L), CVA Tenderness (R), Muscle Spasm Extremities: Normal Inspection, Normal Range of Motion, Non-Tender, No Pedal Edema, Normal Capillary Refill. No: Leeanna's Sign Neurological: Alert (Although mildly lethargic and sedated initially on arrival) , Oriented, CN II-XII Intact, Normal Cognition, Normal Gait, Normal Reflexes ( Negative Babinski's), No Motor/Sensory Deficits Skin Exam: Warm, Dry, Intact, Normal Color, No Rash, Wound/Incision (Multiple old superficial scratches). No: Diaphoretic Lymphatic: No Adenopathy EKG INTERPRETATION EKG Date: 09/22/18 Time: 01:28 Rhythm: NSR Rate (Beats/Min): 89 [place]: Normal (Neutral cardiac axis) P-Wave: Enlarged (Mild diffuse biphasic P waves) QRS: Normal (0.09 seconds) ST-T: Normal (With resolution of previous T-wave inversion in lead V1) QT: Normal GA/PQ Interval: 0.14 seconds representing a short GA interval with no delta waves noted Comparison: Change From Previous EKG (As above since 07/06/16) EKG Interpretation Comments: 1. No acute ischemic changes 2. Left atrial enlargement 3. Short GA interval Course - Vital Signs Last Recorded V/S: Last Vital Signs Temp 36.5 C 09/22/18 01:37 Pulse 96 09/22/18 01:55 Resp 24 H 09/22/18 01:55 BP 121/70 09/22/18 01:55 Pulse Ox 97 09/22/18 01:55 Vital Signs - 24 hr 09/22/18 09/22/18 09/22/18 01:30 01:37 01:45 Temperature [ 36.5 C Temporal] Pulse, 93 94 91 Peripheral [ Pulse Oximetry] Respiratory 18 27 H 24 H Rate Blood Pressure 135/97 H 158/103 H 126/80 [Left Upper Arm ] O2 Sat by Pulse 89 L 80 L 97 Oximetry 09/22/18 01:55 Temperature [ Temporal] Pulse, 96 Peripheral [ Pulse Oximetry] Respiratory 24 H Rate Blood Pressure 121/70 [Left Upper Arm ] O2 Sat by Pulse 97 Oximetry - Orders/Labs/Meds Orders: Active Orders 24 hr Category Date Time Status Cardiac Monitoring [RC] CONTINUOUS Care 09/22/18 01:08 Active Communication Order [RC] ROUTINE Care 09/22/18 01:08 Active EKG Documentation Completion [RC] ASDIRECTED Care 09/22/18 01:09 Active Oxygen Therapy, ED [RC] CONTINUOUS Care 09/22/18 01:08 Active Peripheral IV Care [RC] . DIRECTED Care 09/22/18 01:09 Active Pulse Oximetry [RC] CONTINUOUS Care 09/22/18 01:08 Active RT Aerosol Therapy [RC] ASDIRECTED Care 09/22/18 01:12 Active Up With Assistance [RC] ASDIRECTED Care 09/22/18 01:08 Active Nothing Per Oral Diet [DIET] Diet 09/22/18 Breakfast Active Chest 1V Frontal [CR] Stat Exams 09/22/18 01:08 Taken CULTURE BLOOD [BC] Stat Lab 09/22/18 01:15 Received CULTURE BLOOD [BC] Stat Lab 09/22/18 01:40 Received CULTURE SPUTUM + SMEAR [RM] Urgent Lab 09/22/18 01:08 Ordered Sodium Chloride 0.9% [Saline Flush] Med 09/22/18 01:08 Active 10 ml FLUSH ASDIRECTED PRN Blood Culture x2 Reflex Set [OM.PC] Stat Oth 09/22/18 01:08 Ordered Obtain Past Medical Record [OM.PC] Stat Oth 09/22/18 01:08 Active Peripheral IV Insertion Adult [OM.PC] Stat Oth 09/22/18 01:08 Ordered Resuscitation Status Routine Resus Stat 09/22/18 01:08 Ordered Medication Orders Sodium Chloride (Saline Flush) 10 ml FLUSH ASDIRECTED PRN PRN Reason: Keep Vein Open Last Admin: 09/22/18 01:30 Dose: 10 ml Labs: Laboratory Tests 09/22/18 09/22/18 09/22/18 Range/Units 01:15 01:15 01:15 WBC 11.3 H (4.0-10.2) K/uL RBC 4.37 (3.77-5.09) M/uL Hgb 14.9 (11.7-15.5) g/dL Hct 44.5 (34.0-46.0) % MCV 101.8 H (84.0-98.0) fL MCH 34.1 H (28.2-33.3) pg MCHC 33.5 (31.7-36.0) g/dL RDW 12.6 (11.2-14.1) % Plt Count 279 (150-350) K/uL Neut % (Auto) 55.3 (45.0-80.0) % Lymph % (Auto) 30.2 (10.0-50.0) % [place] % (Auto) 7.1 (2.0-14.0) % Eos % (Auto) 6.8 H (0.0-5.0) % Baso % (Auto) 0.6 (0.0-2.0) % Neut # (Auto) 6.26 (1.40-7.00) K/uL Lymph # (Auto) 3.41 (0.50-3.50) K/uL [place] # (Auto) 0.80 (0.00-1.00) K/uL Eos # (Auto) 0.77 H (0.00-0.50) K/uL Baso # (Auto) 0.07 (0.00-0.20) K/uL PT 10.0 (9.5-12.0) SEC INR 0.9 APTT 24.2 (21.0-31.3) SEC D-Dimer, Quantitative 283 (0-400) ng/mL Sodium (136-145) mmol/L Potassium (3.5-5.1) mmol/L Chloride (98-107) mmol/L Carbon Dioxide (21.0-32.0) mmol/L BUN (7-18) mg/dL Creatinine (0.51-1.17) mg/dL Est Cr Clr Drug Dosing mL/min Estimated GFR (MDRD) mL/min Glucose (74-106) mg/dL Lactic Acid (0.4-2.0) mmol/L Calcium (8.5-10.1) mg/dL Magnesium (1.8-2.4) mg/dL Total Bilirubin (0.2-1.0) mg/dL AST (15-37) U/L ALT (12-78) U/L Alkaline Phosphatase (46-116) IU/L Creatine Kinase (26-308) U/L Creatine Kinase Index (0.0-2.5) % CK-MB (CK-2) (0.00-3.60) ng/mL Troponin I (0.000-0.056) ng/mL NT-Pro-B Natriuret Pep (0-125) pg/mL Total Protein (6.4-8.2) g/dL Albumin (3.4-5.0) g/dL TSH, Ultra Sensitive (0.358-3.740) mIU/mL Ethyl Alcohol (0.000-0.080) g/dL 09/22/18 09/22/18 09/22/18 Range/Units 01:15 01:15 01:15 WBC (4.0-10.2) K/uL RBC (3.77-5.09) M/uL Hgb (11.7-15.5) g/dL Hct (34.0-46.0) % MCV (84.0-98.0) fL MCH (28.2-33.3) pg MCHC (31.7-36.0) g/dL RDW (11.2-14.1) % Plt Count (150-350) K/uL Neut % (Auto) (45.0-80.0) % Lymph % (Auto) (10.0-50.0) % [place] % (Auto) (2.0-14.0) % Eos % (Auto) (0.0-5.0) % Baso % (Auto) (0.0-2.0) % Neut # (Auto) (1.40-7.00) K/uL Lymph # (Auto) (0.50-3.50) K/uL [place] # (Auto) (0.00-1.00) K/uL Eos # (Auto) (0.00-0.50) K/uL Baso # (Auto) (0.00-0.20) K/uL PT (9.5-12.0) SEC INR APTT (21.0-31.3) SEC D-Dimer, Quantitative (0-400) ng/mL Sodium 143 (136-145) mmol/L Potassium 4.4 (3.5-5.1) mmol/L Chloride 103 (98-107) mmol/L Carbon Dioxide 30.6 (21.0-32.0) mmol/L BUN 13 (7-18) mg/dL Creatinine 0.81 (0.51-1.17) mg/dL Est Cr Clr Drug Dosing 60.39 mL/min Estimated GFR (MDRD) > 60 mL/min Glucose 119 H (74-106) mg/dL Lactic Acid 1.0 (0.4-2.0) mmol/L Calcium 8.9 (8.5-10.1) mg/dL Magnesium 1.9 (1.8-2.4) mg/dL Total Bilirubin 0.3 (0.2-1.0) mg/dL AST 80 H (15-37) U/L ALT 48 (12-78) U/L Alkaline Phosphatase 116 (46-116) IU/L Creatine Kinase 252 (26-308) U/L Creatine Kinase Index 1.7 (0.0-2.5) % CK-MB (CK-2) 4.40 H* (0.00-3.60) ng/mL Troponin I 0.001 (0.000-0.056) ng/mL NT-Pro-B Natriuret Pep 66 (0-125) pg/mL Total Protein 7.8 (6.4-8.2) g/dL Albumin 3.6 (3.4-5.0) g/dL TSH, Ultra Sensitive 2.767 (0.358-3.740) mIU/mL Ethyl Alcohol 0.003 (0.000-0.080) g/dL Meds: Medications Generic Name Dose Route Start Last Admin Trade Name Freq PRN Reason Stop Dose Admin Sodium Chloride 10 ml 09/22/18 01:08 09/22/18 01:30 Saline Flush FLUSH 10 ml ASDIRECTED PRN Administration Keep Vein Open Discontinued Medications Generic Name Dose Route Start Last Admin Trade Name Freq PRN Reason Stop Dose Admin Albuterol 2.5 mg 09/22/18 01:12 09/22/18 01:29 Proventil Neb Soln INH 09/22/18 01:13 2.5 mg ONETIME ONE Administration Budesonide 0.5 mg 09/22/18 01:08 09/22/18 01:29 Pulmicort NEB 09/22/18 01:09 0.5 mg ONETIME ONE Administration Ceftriaxone Sodium 1 gm/ 100 mls @ 200 mls/hr 09/22/18 01:08 09/22/18 01:25 Sodium Chloride IV 09/22/18 01:37 200 mls/hr ONETIME ONE Administration Levofloxacin/Dextrose 500 mg/ 100 mls @ 100 mls/hr 09/22/18 01:08 09/22/18 01 :26 Premix IV 09/22/18 02:07 100 mls/hr ONETIME ONE Administration Morphine Sulfate 2 mg 09/22/18 01:11 09/22/18 01:18 Morphine .XX 09/22/18 01:12 2 mg ONETIME ONE Administration - Radiology Interpretation Free Text/Narrative:: 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 Chest x-ray, portable, shows evidence of severe COPD and pulmonary fibrosis with mild blunting of the CVAs bilaterally and bilateral lower lobe mild atelectasis but no cardiomegaly, CHF, pneumothorax, or other significant pulmonary infiltrates Departure - Departure Time of Disposition: 02:40 Disposition: Admitted As Inpatient 66 Condition: Fair Clinical Impression: Elevated LFTs, Elevated CK-MB level COPD (chronic obstructive pulmonary disease) Qualifiers: COPD type: emphysema Emphysema type: panlobular Qualified Code(s): J43.1 - Panlobular emphysema Pneumonia Qualifiers: Pneumonia type: due to unspecified organism Laterality: bilateral Lung location : lower lobe of lung Qualified Code(s): J18.1 - Lobar pneumonia, unspecified organism Osteoarthritis Qualifiers: Osteoarthritis location: multiple joints Osteoarthritis type: primary Qualified Code(s): M15.0 - Primary generalized (osteo)arthritis Chest pain Qualifiers: Chest pain type: unspecified Qualified Code(s): R07.9 - Chest pain, unspecified - Discharge Information *PRESCRIPTION DRUG MONITORING PROGRAM REVIEWED*: Not Applicable *COPY OF PRESCRIPTION DRUG MONITORING REPORT IN PATIENT JUAN: Not Applicable - Problem List & Annotations (1) COPD (chronic obstructive pulmonary disease) SNOMED Code(s): 96965287 Code(s): J44.9 - CHRONIC OBSTRUCTIVE PULMONARY DISEASE, UNSPECIFIED Status : Acute Priority: High Current Visit: No Annotation/Comment:: Severe COPD exacerbation with patient respiratory distress on arrival. She did respond extremely well to aggressive treatment in the emergency room as above, including morphine nebulizer treatment, additional Pulmicort nebulizer treatment , and Proventil nebulizer treatment. Patient still required 6 L/m by nasal cannula with attempts to decrease her oxygen therapy on admission secondary to risk of CO2 retention. She apparently has not been using her Symbicort recently secondary to running out of this medication. She also was not using oxygen per history from the client customer manager as above. Continue aggressive nebulizer therapy during this hospitalization. Qualifiers: COPD type: emphysema Emphysema type: panlobular Qualified Code(s): J43.1 - Panlobular emphysema (2) Elevated CK-MB level SNOMED Code(s): 475713729 Code(s): R74.8 - ABNORMAL LEVELS OF OTHER SERUM ENZYMES Status: Acute Priority: Medium Current Visit: No Onset Date: 09/22/18 Annotation/Comment :: Despite elevated CK-MB cardiac index is normal but otherwise normal EKG and cardiac enzymes. Repeat cardiac enzymes, EKG, etc. in the a.m. No anginal type symptoms on arrival however possible anginal complaints yesterday as per History of Present Illness. (3) Elevated LFTs SNOMED Code(s): 053985081, 457430860 Code(s): R94.5 - ABNORMAL RESULTS OF LIVER FUNCTION STUDIES Status: Acute Priority: Medium Current Visit: No Onset Date: 09/22/18 Annotation/ Comment:: Note history of alcohol abuse and hyperlipidemia. Continue to observe closely. No CHF by chest x-ray with normal BNP. (4) Hyperlipidemia SNOMED Code(s): 98025482 Code(s): E78.5 - HYPERLIPIDEMIA, UNSPECIFIED Status: Acute Priority: Medium Current Visit: No Onset Date: 07/06/16 Annotation/Comment:: Lipid panel and glycosylated hemoglobin in the a.m. Qualifiers: Hyperlipidemia type: pure hypercholesterolemia Qualified Code(s): E78.00 - Pure hypercholesterolemia, unspecified; E78.0 - Pure hypercholesterolemia (5) Iron deficiency SNOMED Code(s): 13517275 Code(s): E61.1 - IRON DEFICIENCY Status: Acute Priority: Medium Current Visit: No Onset Date: 07/06/16 Annotation/Comment:: Iron studies in the a.m. (6) Macrocytosis without anemia SNOMED Code(s): 928777186 Code(s): D75.89 - OTHER SPECIFIED DISEASES OF BLOOD AND BLOOD-FORMING ORGANS Status: Acute Priority: Medium Current Visit: No Onset Date: 07/06/16 Annotation/Comment:: Likely secondary to alcohol abuse. IM thiamine with subsequent oral thiamine. Vitamin B 12 and folate levels normal in the morning. (7) Pneumonia SNOMED Code(s): 111795515 Code(s): J18.9 - PNEUMONIA, UNSPECIFIED ORGANISM Status: Acute Priority: High Current Visit: No Onset Date: 07/06/16 Annotation/Comment:: Blood cultures x2 collected in the emergency room. Possible mild bilateral lower lobe pneumonia and/or atelectasis. IV Rocephin and IV Levaquin initiated in the emergency room. Attempt to obtain sputum specimen JESUS ater admission. Note mild leukocytosis with no fever at this time. Qualifiers: Pneumonia type: due to unspecified organism Laterality: bilateral Lung location: lower lobe of lung Qualified Code(s): J18.1 - Lobar pneumonia, unspecified organism (8) Alcohol abuse SNOMED Code(s): 67845778 Code(s): F10.10 - ALCOHOL ABUSE, UNCOMPLICATED Status: Chronic Priority: High Current Visit: No Annotation/Comment:: Note history of alcohol abuse as above, including some alcohol use yesterday evening. Note normal alcohol level today. Patient has refused recommended alcohol treatment in the past. No previous history of DTs, seizures, etc., however initiate DT precautions on admission. Emotional support provided (9) Osteoarthritis SNOMED Code(s): 365193327 Code(s): M19.90 - UNSPECIFIED OSTEOARTHRITIS, UNSPECIFIED SITE Status: Chronic Priority: Medium Current Visit: No Annotation/Comment:: Stable by history Qualifiers: Osteoarthritis location: multiple joints Osteoarthritis type: primary Qualified Code(s): M15.0 - Primary generalized (osteo)arthritis (10) Tobacco abuse counseling SNOMED Code(s): 896563383, 927997402, 829456387 Code(s): Z71.6 - TOBACCO ABUSE COUNSELING Status: Chronic Priority: Medium Current Visit: No Annotation/Comment:: Tobacco cessation strongly encouraged with tobacco cessation once again to be provided at discharge. - Problem List Review Problem List Initiated/Reviewed/Updated: Yes - My Orders Last 24 Hours: My Active Orders 09/22/18 01:08 Cardiac Monitoring [RC] CONTINUOUS Communication Order [RC] ROUTINE Oxygen Therapy, ED [RC] CONTINUOUS Pulse Oximetry [RC] CONTINUOUS Up With Assistance [RC] ASDIRECTED Chest 1V Frontal [CR] Stat CULTURE SPUTUM + SMEAR [RM] Urgent Sodium Chloride 0.9% [Saline Flush] 10 ml FLUSH ASDIRECTED PRN Blood Culture x2 Reflex Set [OM.PC] Stat Obtain Past Medical Record [OM.PC] Stat Peripheral IV Insertion Adult [OM.PC] Stat Resuscitation Status Routine 09/22/18 01:09 EKG Documentation Completion [RC] ASDIRECTED Peripheral IV Care [RC] . DIRECTED 09/22/18 01:12 RT Aerosol Therapy [RC] ASDIRECTED 09/22/18 01:15 CULTURE BLOOD [BC] Stat 09/22/18 01:40 CULTURE BLOOD [BC] Stat 09/22/18 Breakfast Nothing Per Oral Diet [DIET] - Assessment/Plan Admission H&P: Please use this note as an admission H&P Last 24 Hours: My Active Orders 09/22/18 01:08 Cardiac Monitoring [RC] CONTINUOUS Communication Order [RC] ROUTINE Oxygen Therapy, ED [RC] CONTINUOUS Pulse Oximetry [RC] CONTINUOUS Up With Assistance [RC] ASDIRECTED Chest 1V Frontal [CR] Stat CULTURE SPUTUM + SMEAR [RM] Urgent Sodium Chloride 0.9% [Saline Flush] 10 ml FLUSH ASDIRECTED PRN Blood Culture x2 Reflex Set [OM.PC] Stat Obtain Past Medical Record [OM.PC] Stat Peripheral IV Insertion Adult [OM.PC] Stat Resuscitation Status Routine 09/22/18 01:09 EKG Documentation Completion [RC] ASDIRECTED Peripheral IV Care [RC] . DIRECTED 09/22/18 01:12 RT Aerosol Therapy [RC] ASDIRECTED 09/22/18 01:15 CULTURE BLOOD [BC] Stat 09/22/18 01:40 CULTURE BLOOD [BC] Stat 09/22/18 Breakfast Nothing Per Oral Diet [DIET] Assessment:: As above Plan: As above. Extensive precautions were given to the patient, who is in agreement with the treatment plan. She is an extremely poor historian secondary to her current COPD exacerbation and dyspnea with the majority of history taken from previous medical records. [facility] [place] care in the a.m.. The patient will require about 3-4 days of inpatient/acute care secondary to multiple health problems as above.
[2018-09-22] MEDS ORDERED: Morphine 2 MG/ML Syringe ONE (01:11)
[2018-09-22] MEDS ORDERED: Albuterol 0.083% 2.5 MG/3 ML Neb Soln INH ONE (01:12)
[2018-09-22] MEDS: Sodium Chloride 0.9% 10 ML Syringe FLUSH PRN ×2 (01:30→04:28)
[2018-09-22 01:55] LABS: CHLORIDE,CL 103 mmol/L (98-107); SODIUM,NA 143 mmol/L (136-145)
[2018-09-22] MEDS ORDERED: Acetaminophen 325 MG Tab PO PRN (02:50)
[2018-09-22] MEDS ORDERED: Albuterol 0.083% 2.5 MG/3 ML Neb Soln NEB PRN (02:50)
[2018-09-22] MEDS ORDERED: Temazepam 15 MG Cap PO PRN (02:50)
[2018-09-22] MEDS ORDERED: Thiamine 200 MG/2 ML MDV IM ONE ×2 (02:53→08:00)
[2018-09-22] MEDS ORDERED: LORazepam 1 MG Tab PO PRN (02:55)
[2018-09-22] MEDS ORDERED: methylPREDNISolone Sodium Succinate 125 MG/2 ML SDV IVPUSH ONE (02:59)
[2018-09-22] MEDS ORDERED: Morphine 2 MG/ML Syringe PRN (03:00)
[2018-09-22] MEDS ORDERED: Levofloxacin/Dextrose 5%-Water 500 MG in Premix Bag 1 BAG IV SCH ×2 (03:00→21:00)
[2018-09-22] MEDS ORDERED: Sodium Chloride 0.9% 10 ML Syringe FLUSH SCH ×2 (03:00→08:00)
[2018-09-22] MEDS ORDERED: Ondansetron 4 MG/2 ML SDV IVPUSH PRN (03:02)
[2018-09-22] MEDS: Albuterol/Ipratropium 3.0-0.5 MG/3 ML Neb Soln NEB SCH ×4 (04:19→17:07)
[2018-09-22 07:36] LABS: HEMOGLOBIN A1C 5.5 % (4.3-5.7)
[2018-09-22] MEDS ORDERED: Budesonide 0.5 MG/2 ML Neb Susp NEB SCH (08:00)
[2018-09-22] MEDS ORDERED: Non-Formulary Medication 1 Each (Budesonide/Formoterol Fumarate 1 PUFF) IH SCH (08:00)
[2018-09-22] MEDS ORDERED: Cyanocobalamin (Vitamin B12) 1,000 MCG Tab PO SCH (08:00)
[2018-09-22] MEDS ORDERED: Dextromethorphan/guaiFENesin 600-30 MG Tab.ER PO SCH (08:00)
[2018-09-22] MEDS ORDERED: Aspirin 81 MG Tab.EC PO SCH (08:00)
[2018-09-22] MEDS ORDERED: Ferrous Sulfate 325 MG Tab PO SCH (08:00)
[2018-09-22] MEDS ORDERED: Dextromethorphan/guaiFENesin 600-30 MG Tab.ER PO PRN (09:12)
[2018-09-22 12:05] LABS: BASE EXCESS VENOUS 1 mmol/L ((-2)-3); BICARBONATE,VENOUS 26 mmol/L (23-28); O2 DELIVERY DEVICE NASAL CANNULA; O2 SATURATION VENOUS 92 %; PCO2 VENOUS 45 mmHG (41-51); PH,VENOUS 7.38 (7.31-7.41); PO2 VENOUS 64 mmHG
[2018-09-22] MEDS ORDERED: cefTRIAXone 1 GM in Sodium Chloride 0.9% 100 ML IV SCH (14:00)
[2018-09-22 15:47] VITALS: BP 97/62
--- NOTE | 2018-09-22 22:58 | PCM.PN ---
- General Info Date of Service: 09/22/18 Functional Status: Reports: Urinating - Review of Systems General: Reports: Fatigue HEENT: Reports: No Symptoms Pulmonary: Reports: Shortness of Breath, Cough Cardiovascular: Reports: No Symptoms Gastrointestinal: Reports: No Symptoms Genitourinary: Reports: No Symptoms Musculoskeletal: Reports: No Symptoms Skin: Reports: No Symptoms Neurological: Reports: No Symptoms Psychiatric: Reports: No Symptoms - Patient Data Vitals - Most Recent: Last Vital Signs Temp 98.2 F 09/22/18 15:45 Pulse 102 H 09/22/18 15:45 Resp 19 09/22/18 15:45 BP 97/62 09/22/18 15:45 Pulse Ox 100 09/22/18 15:45 Weight - Most Recent: 105 lb 11.21 oz I&O - Last 24 Hours: Intake & Output 09/22/18 09/22/18 09/22/18 06:59 14:59 22:59 Intake Total 660 Output Total 300 Balance -300 660 Lab Results Last 24 Hours: Laboratory Results - last 24 hr 09/22/18 09/22/18 09/22/18 Range/Units 01:15 01:15 01:15 WBC 11.3 H (4.0-10.2) K/uL RBC 4.37 (3.77-5.09) M/uL Hgb 14.9 (11.7-15.5) g/dL Hct 44.5 (34.0-46.0) % MCV 101.8 H (84.0-98.0) fL MCH 34.1 H (28.2-33.3) pg MCHC 33.5 (31.7-36.0) g/dL RDW 12.6 (11.2-14.1) % Plt Count 279 (150-350) K/uL Neut % (Auto) 55.3 (45.0-80.0) % Lymph % (Auto) 30.2 (10.0-50.0) % Sebastian % (Auto) 7.1 (2.0-14.0) % Eos % (Auto) 6.8 H (0.0-5.0) % Baso % (Auto) 0.6 (0.0-2.0) % Neut # (Auto) 6.26 (1.40-7.00) K/uL Lymph # (Auto) 3.41 (0.50-3.50) K/uL Sebastian # (Auto) 0.80 (0.00-1.00) K/uL Eos # (Auto) 0.77 H (0.00-0.50) K/uL Baso # (Auto) 0.07 (0.00-0.20) K/uL PT 10.0 (9.5-12.0) SEC INR 0.9 APTT 24.2 (21.0-31.3) SEC D-Dimer, Quantitative 283 (0-400) ng/mL VBG pH (7.31-7.41) VBG pCO2 (41-51) mmHG VBG pO2 mmHG VBG HCO3 (23-28) mmol/L VBG Total CO2 mmol/L VBG O2 Saturation % VBG Base Excess ((-2)-3) mmol/L O2 Delivery Device Sodium (136-145) mmol/L Potassium (3.5-5.1) mmol/L Chloride (98-107) mmol/L Carbon Dioxide (21.0-32.0) mmol/L BUN (7-18) mg/dL Creatinine (0.51-1.17) mg/dL Est Cr Clr Drug Dosing mL/min Estimated GFR (MDRD) mL/min Glucose (74-106) mg/dL Hemoglobin A1c (4.3-5.7) % Lactic Acid (0.4-2.0) mmol/L Calcium (8.5-10.1) mg/dL Magnesium (1.8-2.4) mg/dL Iron (50-175) ug/dL TIBC (250-450) ug/dL % Saturation Ferritin (8-388) ng/mL Total Bilirubin (0.2-1.0) mg/dL AST (15-37) U/L ALT (12-78) U/L Alkaline Phosphatase (46-116) IU/L Creatine Kinase (26-308) U/L Creatine Kinase Index (0.0-2.5) % CK-MB (CK-2) (0.00-3.60) ng/mL Troponin I (0.000-0.056) ng/mL NT-Pro-B Natriuret Pep (0-125) pg/mL Total Protein (6.4-8.2) g/dL Albumin (3.4-5.0) g/dL Triglycerides (30-150) mg/dL Cholesterol (100-200) mg/dL LDL Cholesterol, Calc (0-100) mg/dL HDL Cholesterol (40-60) mg/dL Vitamin B12 (193-986) pg/mL Folate (8.6-58.9) ng/mL TSH, Ultra Sensitive (0.358-3.740) mIU/mL Ethyl Alcohol (0.000-0.080) g/dL 09/22/18 09/22/18 09/22/18 Range/Units 01:15 01:15 01:15 WBC (4.0-10.2) K/uL RBC (3.77-5.09) M/uL Hgb (11.7-15.5) g/dL Hct (34.0-46.0) % MCV (84.0-98.0) fL MCH (28.2-33.3) pg MCHC (31.7-36.0) g/dL RDW (11.2-14.1) % Plt Count (150-350) K/uL Neut % (Auto) (45.0-80.0) % Lymph % (Auto) (10.0-50.0) % Sebastian % (Auto) (2.0-14.0) % Eos % (Auto) (0.0-5.0) % Baso % (Auto) (0.0-2.0) % Neut # (Auto) (1.40-7.00) K/uL Lymph # (Auto) (0.50-3.50) K/uL Sebastian # (Auto) (0.00-1.00) K/uL Eos # (Auto) (0.00-0.50) K/uL Baso # (Auto) (0.00-0.20) K/uL PT (9.5-12.0) SEC INR APTT (21.0-31.3) SEC D-Dimer, Quantitative (0-400) ng/mL VBG pH (7.31-7.41) VBG pCO2 (41-51) mmHG VBG pO2 mmHG VBG HCO3 (23-28) mmol/L VBG Total CO2 mmol/L VBG O2 Saturation % VBG Base Excess ((-2)-3) mmol/L O2 Delivery Device Sodium 143 (136-145) mmol/L Potassium 4.4 (3.5-5.1) mmol/L Chloride 103 (98-107) mmol/L Carbon Dioxide 30.6 (21.0-32.0) mmol/L BUN 13 (7-18) mg/dL Creatinine 0.81 (0.51-1.17) mg/dL Est Cr Clr Drug Dosing 60.39 mL/min Estimated GFR (MDRD) > 60 mL/min Glucose 119 H (74-106) mg/dL Hemoglobin A1c (4.3-5.7) % Lactic Acid 1.0 (0.4-2.0) mmol/L Calcium 8.9 (8.5-10.1) mg/dL Magnesium 1.9 (1.8-2.4) mg/dL Iron (50-175) ug/dL TIBC (250-450) ug/dL % Saturation Ferritin (8-388) ng/mL Total Bilirubin 0.3 (0.2-1.0) mg/dL AST 80 H (15-37) U/L ALT 48 (12-78) U/L Alkaline Phosphatase 116 (46-116) IU/L Creatine Kinase 252 (26-308) U/L Creatine Kinase Index 1.7 (0.0-2.5) % CK-MB (CK-2) 4.40 H* (0.00-3.60) ng/mL Troponin I 0.001 (0.000-0.056) ng/mL NT-Pro-B Natriuret Pep 66 (0-125) pg/mL Total Protein 7.8 (6.4-8.2) g/dL Albumin 3.6 (3.4-5.0) g/dL Triglycerides (30-150) mg/dL Cholesterol (100-200) mg/dL LDL Cholesterol, Calc (0-100) mg/dL HDL Cholesterol (40-60) mg/dL Vitamin B12 (193-986) pg/mL Folate (8.6-58.9) ng/mL TSH, Ultra Sensitive 2.767 (0.358-3.740) mIU/mL Ethyl Alcohol 0.003 (0.000-0.080) g/dL 09/22/18 09/22/18 09/22/18 Range/Units 07:15 07:15 07:15 WBC (4.0-10.2) K/uL RBC (3.77-5.09) M/uL Hgb (11.7-15.5) g/dL Hct (34.0-46.0) % MCV (84.0-98.0) fL MCH (28.2-33.3) pg MCHC (31.7-36.0) g/dL RDW (11.2-14.1) % Plt Count (150-350) K/uL Neut % (Auto) (45.0-80.0) % Lymph % (Auto) (10.0-50.0) % Sebastian % (Auto) (2.0-14.0) % Eos % (Auto) (0.0-5.0) % Baso % (Auto) (0.0-2.0) % Neut # (Auto) (1.40-7.00) K/uL Lymph # (Auto) (0.50-3.50) K/uL Sebastian # (Auto) (0.00-1.00) K/uL Eos # (Auto) (0.00-0.50) K/uL Baso # (Auto) (0.00-0.20) K/uL PT (9.5-12.0) SEC INR APTT (21.0-31.3) SEC D-Dimer, Quantitative (0-400) ng/mL VBG pH (7.31-7.41) VBG pCO2 (41-51) mmHG VBG pO2 mmHG VBG HCO3 (23-28) mmol/L VBG Total CO2 mmol/L VBG O2 Saturation % VBG Base Excess ((-2)-3) mmol/L O2 Delivery Device Sodium (136-145) mmol/L Potassium (3.5-5.1) mmol/L Chloride (98-107) mmol/L Carbon Dioxide (21.0-32.0) mmol/L BUN (7-18) mg/dL Creatinine (0.51-1.17) mg/dL Est Cr Clr Drug Dosing mL/min Estimated GFR (MDRD) mL/min Glucose (74-106) mg/dL Hemoglobin A1c 5.5 (4.3-5.7) % Lactic Acid (0.4-2.0) mmol/L Calcium (8.5-10.1) mg/dL Magnesium (1.8-2.4) mg/dL Iron 76 (50-175) ug/dL TIBC 293 (250-450) ug/dL % Saturation 25.09081 Ferritin 151 (8-388) ng/mL Total Bilirubin (0.2-1.0) mg/dL AST (15-37) U/L ALT (12-78) U/L Alkaline Phosphatase (46-116) IU/L Creatine Kinase 185 (26-308) U/L Creatine Kinase Index 2.4 (0.0-2.5) % CK-MB (CK-2) 4.40 H* (0.00-3.60) ng/mL Troponin I 0.196 H* (0.000-0.056) ng/mL NT-Pro-B Natriuret Pep (0-125) pg/mL Total Protein (6.4-8.2) g/dL Albumin (3.4-5.0) g/dL Triglycerides 33 (30-150) mg/dL Cholesterol 207 H (100-200) mg/dL LDL Cholesterol, Calc 79 (0-100) mg/dL HDL Cholesterol 121 H (40-60) mg/dL Vitamin B12 934 (193-986) pg/mL Folate 14.9 (8.6-58.9) ng/mL TSH, Ultra Sensitive (0.358-3.740) mIU/mL Ethyl Alcohol (0.000-0.080) g/dL 09/22/18 09/22/18 Range/Units 11:50 11:55 WBC (4.0-10.2) K/uL RBC (3.77-5.09) M/uL Hgb (11.7-15.5) g/dL Hct (34.0-46.0) % MCV (84.0-98.0) fL MCH (28.2-33.3) pg MCHC (31.7-36.0) g/dL RDW (11.2-14.1) % Plt Count (150-350) K/uL Neut % (Auto) (45.0-80.0) % Lymph % (Auto) (10.0-50.0) % Sebastian % (Auto) (2.0-14.0) % Eos % (Auto) (0.0-5.0) % Baso % (Auto) (0.0-2.0) % Neut # (Auto) (1.40-7.00) K/uL Lymph # (Auto) (0.50-3.50) K/uL Sebastian # (Auto) (0.00-1.00) K/uL Eos # (Auto) (0.00-0.50) K/uL Baso # (Auto) (0.00-0.20) K/uL PT (9.5-12.0) SEC INR APTT (21.0-31.3) SEC D-Dimer, Quantitative (0-400) ng/mL VBG pH 7.38 (7.31-7.41) VBG pCO2 45 (41-51) mmHG VBG pO2 64 mmHG VBG HCO3 26 (23-28) mmol/L VBG Total CO2 28 mmol/L VBG O2 Saturation 92 % VBG Base Excess 1 ((-2)-3) mmol/L O2 Delivery Device Nasal cannula Sodium (136-145) mmol/L Potassium (3.5-5.1) mmol/L Chloride (98-107) mmol/L Carbon Dioxide (21.0-32.0) mmol/L BUN (7-18) mg/dL Creatinine (0.51-1.17) mg/dL Est Cr Clr Drug Dosing mL/min Estimated GFR (MDRD) mL/min Glucose (74-106) mg/dL Hemoglobin A1c (4.3-5.7) % Lactic Acid (0.4-2.0) mmol/L Calcium (8.5-10.1) mg/dL Magnesium (1.8-2.4) mg/dL Iron (50-175) ug/dL TIBC (250-450) ug/dL % Saturation Ferritin (8-388) ng/mL Total Bilirubin (0.2-1.0) mg/dL AST (15-37) U/L ALT (12-78) U/L Alkaline Phosphatase (46-116) IU/L Creatine Kinase 155 (26-308) U/L Creatine Kinase Index (0.0-2.5) % CK-MB (CK-2) (0.00-3.60) ng/mL Troponin I 0.133 H* (0.000-0.056) ng/mL NT-Pro-B Natriuret Pep (0-125) pg/mL Total Protein (6.4-8.2) g/dL Albumin (3.4-5.0) g/dL Triglycerides (30-150) mg/dL Cholesterol (100-200) mg/dL LDL Cholesterol, Calc (0-100) mg/dL HDL Cholesterol (40-60) mg/dL Vitamin B12 (193-986) pg/mL Folate (8.6-58.9) ng/mL TSH, Ultra Sensitive (0.358-3.740) mIU/mL Ethyl Alcohol (0.000-0.080) g/dL [place] Results Last 24 Hours: Microbiology 09/22/18 02:00 Influenza Type A Antigen Screen - Final Nasal, Left NEGATIVE INFLUENZA A VIRUS AG REFERENCE RANGE: NEGATIVE Influenza Type B Antigen Screen - Final NEGATIVE INFLUENZA B VIRUS AG REFERENCE RANGE: NEGATIVE Med Orders - Current: Current Medications Discontinued Medications Acetaminophen (Tylenol) 650 mg PO Q4H PRN PRN Reason: Pain/Fever Albuterol (Proventil Neb Soln) 2.5 mg INH ONETIME ONE Stop: 09/22/18 01:13 Last Admin: 09/22/18 01:29 Dose: 2.5 mg Albuterol (Proventil Neb Soln) 2.5 mg NEB Q2H PRN PRN Reason: Dyspnea Albuterol/Ipratropium (Duoneb 3.0-0.5 Mg/3 Ml) 3 ml NEB Q4HRRT [facility] Last Admin: 09/22/18 17:07 Dose: 3 ml Aspirin (Halfprin) 81 mg PO DAILY [facility] Last Admin: 09/22/18 09:31 Dose: Not Given Budesonide (Pulmicort) 0.5 mg NEB ONETIME ONE Stop: 09/22/18 01:09 Last Admin: 09/22/18 01:29 Dose: 0.5 mg Budesonide (Pulmicort) 0.5 mg NEB BIDRT [facility] Last Admin: 09/22/18 09:32 Dose: Not Given Cyanocobalamin (Vitamin B12) 2,000 mcg PO DAILY [facility] Last Admin: 09/22/18 09:32 Dose: Not Given Cyanocobalamin (Vitamin B12) 2,000 mcg PO DAILY [facility] Ferrous Sulfate (Ferrous Sulfate) 325 mg PO DAILY [facility] Last Admin: 09/22/18 09:31 Dose: Not Given Guaifenesin/Dextromethorphan (Mucinex Dm Er 600-30 Mg) 1 tab PO BID [facility] Last Admin: 09/22/18 09:31 Dose: Not Given Guaifenesin/Dextromethorphan (Mucinex Dm Er 600-30 Mg) 1 tab PO BID PRN PRN Reason: Cough Ceftriaxone Sodium 1 gm/ (Sodium Chloride) 100 mls @ 200 mls/hr IV ONETIME ONE Stop: 09/22/18 01:37 Last Admin: 09/22/18 01:25 Dose: 200 mls/hr Levofloxacin/Dextrose 500 mg/ (Premix) 100 mls @ 100 mls/hr IV ONETIME ONE Stop: 09/22/18 02:07 Last Admin: 09/22/18 01:26 Dose: 100 mls/hr Ceftriaxone Sodium 1 gm/ (Sodium Chloride) 100 mls @ 200 mls/hr IV Q12H [facility] Last Admin: 09/22/18 13:32 Dose: 200 mls/hr Levofloxacin/Dextrose 500 mg/ (Premix) 100 mls @ 100 mls/hr IV Q24H [facility] Last Admin: 09/22/18 07:47 Dose: Not Given Levofloxacin/Dextrose 500 mg/ (Premix) 100 mls @ 100 mls/hr IV Q24H [facility] Lorazepam (Ativan) 1 mg PO Q4H PRN PRN Reason: Anxiety Last Admin: 09/22/18 04:26 Dose: 1 mg Methylprednisolone Sodium Succinate (Solu-Medrol) 125 mg IVPUSH ONETIME ONE Stop: 09/22/18 03:00 Last Admin: 09/22/18 04:20 Dose: 125 mg Morphine Sulfate (Morphine) 2 mg .XX ONETIME ONE Stop: 09/22/18 01:12 Last Admin: 09/22/18 01:18 Dose: 2 mg Morphine Sulfate (Morphine) 2 mg .XX Q2H PRN PRN Reason: Dyspnea Non-Formulary Medication (Budesonide/Formoterol Fumarate) 1 puff IH DAILY [facility] Ondansetron HCl (Zofran) 4 mg IVPUSH Q6H PRN PRN Reason: Nausea/Vomiting Last Admin: 09/22/18 04:26 Dose: 4 mg Sodium Chloride (Saline Flush) 10 ml FLUSH ASDIRECTED PRN PRN Reason: Keep Vein Open Last Admin: 09/22/18 04:28 Dose: 10 ml Sodium Chloride (Saline Flush) 10 ml FLUSH Q12H [facility] Last Admin: 09/22/18 07:47 Dose: Not Given Sodium Chloride (Saline Flush) 10 ml FLUSH Q12H [facility] Last Admin: 09/22/18 09:52 Dose: 10 ml Temazepam (Restoril) 15 mg PO BEDTIME PRN PRN Reason: Insomnia Thiamine HCl (Vitamin B-1) 100 mg IM ONETIME ONE Stop: 09/22/18 02:54 Last Admin: 09/22/18 04:31 Dose: Not Given Thiamine HCl (Vitamin B-1) 100 mg PO DAILY [facility] Thiamine HCl (Vitamin B-1) 100 mg IM ONETIME ONE Stop: 09/22/18 08:01 Last Admin: 09/22/18 09:32 Dose: Not Given - Exam Quality Assessment: Supplemental Oxygen General: Alert (sleepy but easily awakens), Cooperative, No Acute Distress HEENT: Pupils Equal, Pupils Reactive, Mucous Membr. Moist/[place] Neck: Trachea Midline, No JVD Lungs: Normal Respiratory Effort, Decreased Breath Sounds, Rhonchi, Wheezing Cardiovascular: Regular Rate, Regular Rhythm GI/Abdominal Exam: Soft, Non-Tender, No Distention (Female) Exam: Deferred Back Exam: Normal Inspection Extremities: Normal Inspection, Non-Tender, No Pedal Edema Skin: Warm, Dry, Intact Neurological: No New Focal Deficit Psy/Mental Status: Alert, Normal Affect, Normal Mood, Anxious (at times) - Problem List & Annotations (1) Acute exacerbation of COPD with asthma SNOMED Code(s): 7761082924389 Code(s): J44.1 - CHRONIC OBSTRUCTIVE PULMONARY DISEASE W (ACUTE) EXACERBATION ; J45.901 - UNSPECIFIED ASTHMA WITH (ACUTE) EXACERBATION Status: Acute Priority: High (2) COPD (chronic obstructive pulmonary disease) SNOMED Code(s): 73812932 Code(s): J44.9 - CHRONIC OBSTRUCTIVE PULMONARY DISEASE, UNSPECIFIED Status : Acute Priority: High Qualifiers: COPD type: emphysema Emphysema type: panlobular Qualified Code(s): J43.1 - Panlobular emphysema (3) Elevated LFTs SNOMED Code(s): 653394378, 779698520 Code(s): R94.5 - ABNORMAL RESULTS OF LIVER FUNCTION STUDIES Status: Acute Priority: Medium Onset Date: 09/22/18 Annotation/Comment:: Note history of alcohol abuse and hyperlipidemia. Continue to observe closely. No CHF by chest x-ray with normal BNP. (4) Macrocytosis without anemia SNOMED Code(s): 169265481 Code(s): D75.89 - OTHER SPECIFIED DISEASES OF BLOOD AND BLOOD-FORMING ORGANS Status: Acute Priority: Medium Onset Date: 07/06/16 Annotation/Comment: : Likely secondary to alcohol abuse. (5) Alcohol abuse SNOMED Code(s): 42371077 Code(s): F10.10 - ALCOHOL ABUSE, UNCOMPLICATED Status: Chronic Priority: High Annotation/Comment:: Note history of alcohol abuse. Patient has refused recommended alcohol treatment in the past. No previous history of DTs, seizures , etc. (6) Tobacco dependence due to cigarettes SNOMED Code(s): 21669042620127101 Code(s): F17.210 - NICOTINE DEPENDENCE, CIGARETTES, UNCOMPLICATED Status: Acute Priority: High (7) Tobacco abuse counseling SNOMED Code(s): 376908671, 632376185, 815572396 Code(s): Z71.6 - TOBACCO ABUSE COUNSELING Status: Chronic Priority: Medium Annotation/Comment:: Tobacco cessation strongly encouraged with tobacco cessation once again to be provided at discharge. 09/22/18 Tobacco cessation discussed at length (not even one more cigarette). Blood gas results discussed with her. Discussed reversible damage versus irreversible damage to lungs. Discussed [place] Tobacco Quit Line. (8) Tachycardia with heart rate 100-120 beats per minute SNOMED Code(s): 3785702 Code(s): R00.0 - TACHYCARDIA, UNSPECIFIED Status: Acute Priority: Medium - Problem List Review Problem List Initiated/Reviewed/Updated: Yes - My Orders Last 24 Hours: My Active Orders 09/22/18 15:44 Ready for Discharge [RC] PER UNIT ROUTINE 09/22/18 15:47 Discontinue Telemetry Monitoring [Cardiac Monitoring Discontinue] [RC] Click to Edit Peripheral IV Discontinue [OM.PC] Routine - Plan Plan:: 09/22/18 Zahraa Moura MD She says she feels much better. She is not short of breath. Adamant that she has to go home today and says she will sign the AMA paper. I recommend she stay in the hospital for continued IV medications but she refuses. Long discussion regarding smoking cessation (not even one more cigarette) and absolute alcohol abstinence (not one more drink of alcohol which she is at risk to cause permanent damage to her body). She voices understanding.
--- NOTE | 2018-09-22 23:15 | PCM.DCSUM1 ---
Discharge Summary - Hospital Course Diagnosis: Stroke: No - Discharge Data Discharge Date: 09/22/18 Discharge Disposition: Home, Self-Care 01 Condition: Fair - Discharge Diagnosis/Problem(s) (1) Acute exacerbation of COPD with asthma SNOMED Code(s): 4935721373952 ICD Code: J44.1 - CHRONIC OBSTRUCTIVE PULMONARY DISEASE W (ACUTE) EXACERBATION; J45.901 - UNSPECIFIED ASTHMA WITH (ACUTE) EXACERBATION Status: Acute Priority: High (2) COPD (chronic obstructive pulmonary disease) SNOMED Code(s): 78401311 ICD Code: J44.9 - CHRONIC OBSTRUCTIVE PULMONARY DISEASE, UNSPECIFIED Status : Acute Priority: High Qualifiers: COPD type: emphysema Emphysema type: panlobular Qualified Code(s): J43.1 - Panlobular emphysema (3) Elevated LFTs SNOMED Code(s): 992390546, 881389672 ICD Code: R94.5 - ABNORMAL RESULTS OF LIVER FUNCTION STUDIES Status: Acute Priority: Medium Onset Date: 09/22/18 Problem Details: Note history of alcohol abuse and hyperlipidemia. Continue to observe closely. No CHF by chest x -ray with normal BNP. (4) Macrocytosis without anemia SNOMED Code(s): 600826744 ICD Code: D75.89 - OTHER SPECIFIED DISEASES OF BLOOD AND BLOOD-FORMING ORGANS Status: Acute Priority: Medium Onset Date: 07/06/16 Problem Details: Likely secondary to alcohol abuse. (5) Alcohol abuse SNOMED Code(s): 28084114 ICD Code: F10.10 - ALCOHOL ABUSE, UNCOMPLICATED Status: Chronic Priority : High Problem Details: Note history of alcohol abuse. Patient has refused recommended alcohol treatment in the past. No previous history of DTs, seizures , etc. (6) Tobacco dependence due to cigarettes SNOMED Code(s): 15981700659050871 ICD Code: F17.210 - NICOTINE DEPENDENCE, CIGARETTES, UNCOMPLICATED Status: Acute Priority: High (7) Tobacco abuse counseling SNOMED Code(s): 911859239, 466807807, 221874084 ICD Code: Z71.6 - TOBACCO ABUSE COUNSELING Status: Chronic Priority: Medium Problem Details: Tobacco cessation strongly encouraged with tobacco cessation once again to be provided at discharge. 09/22/18 Tobacco cessation discussed at length (not even one more cigarette). Blood gas results discussed with her. Discussed reversible damage versus irreversible damage to lungs. Discussed [place] Tobacco Quit Line. (8) Tachycardia with heart rate 100-120 beats per minute SNOMED Code(s): 4829007 ICD Code: R00.0 - TACHYCARDIA, UNSPECIFIED Status: Acute Priority: Medium - Patient Instructions Diet: Regular Diet as Tolerated Activity: As Tolerated Driving: May Drive Today Showering/Bathing: May Shower Other/Special Instructions: Follow up with your primary care provider next week. Stop smoking and stop drinking alcohol. Do it for you. - Discharge Plan *PRESCRIPTION DRUG MONITORING PROGRAM REVIEWED*: Not Applicable *COPY OF PRESCRIPTION DRUG MONITORING REPORT IN PATIENT JUAN: Not Applicable Prescriptions/Med Rec: Levofloxacin [Levaquin] 500 mg PO DAILY #7 tablet predniSONE [Prednisone] See Taper PO ASDIRECTED 15 Days tablet Thiamine [Vitamin B-1] 100 mg PO DAILY #100 tablet Home Medications: Home Meds Aspirin [Halfprin] 81 mg PO DAILY 01/16/17 [History] Budesonide/Formoterol Fumarate [Symbicort 160-4.5 Mcg Inhaler] 1 puff IH DAILY 12/31/17 [History] Cyanocobalamin (Vitamin B-12) [Vitamin B-12] 2,000 mcg PO DAILY 12/31/17 [ History] Ferrous Sulfate [Iron] 325 mg PO DAILY 12/31/17 [History] Ipratropium/Albuterol Sulfate [Iprat-Albut 0.5-3(2.5) MG/3 ML] 3 ml NEB QID [History] Albuterol/Ipratropium [DuoNeb 3.0-0.5 MG/3 ML] 3 ml NEB QID #120 neb 09/22/18 [ Rx] Dextromethorphan/guaiFENesin [Mucinex DM ER 600-30 MG] 1 tab PO BID PRN tab.er 09/22/18 [Rx] Levofloxacin [Levaquin] 500 mg PO DAILY #7 tablet 09/22/18 [Rx] Non-Formulary Medication [NF Drug] 1 applic SL ASDIRECTED PRN 09/22/18 [History] Thiamine [Vitamin B-1] 100 mg PO DAILY #100 tablet 09/22/18 [Rx] predniSONE [Prednisone] See Taper PO ASDIRECTED 15 Days tablet 09/22/18 [Rx] Oxygen Therapy Mode: Nasal Cannula Oxygen Flow Rate (L/min): 2 Patient Handouts: Levofloxacin injection, Ceftriaxone injection, Methylprednisolone Solution for Injection, Morphine injection solution Forms: ED Department Discharge Referrals: Anna eMlvin PA-C [Primary Care Provider] - - Discharge Summary/Plan Comment DC Time >30 min.: No - Patient Data Vitals - Most Recent: Last Vital Signs Temp 98.2 F 09/22/18 15:45 Pulse 102 H 09/22/18 15:45 Resp 19 09/22/18 15:45 BP 97/62 09/22/18 15:45 Pulse Ox 100 09/22/18 15:45 Weight - Most Recent: 105 lb 11.21 oz I&O - Last 24 hours: Intake & Output 09/22/18 09/22/18 09/23/18 14:59 22:59 06:59 Intake Total 660 Output Total 300 Balance -300 660 Lab Results - Last 24 hrs: Laboratory Results - last 24 hr 09/22/18 09/22/18 09/22/18 Range/Units 01:15 01:15 01:15 WBC 11.3 H (4.0-10.2) K/uL RBC 4.37 (3.77-5.09) M/uL Hgb 14.9 (11.7-15.5) g/dL Hct 44.5 (34.0-46.0) % MCV 101.8 H (84.0-98.0) fL MCH 34.1 H (28.2-33.3) pg MCHC 33.5 (31.7-36.0) g/dL RDW 12.6 (11.2-14.1) % Plt Count 279 (150-350) K/uL Neut % (Auto) 55.3 (45.0-80.0) % Lymph % (Auto) 30.2 (10.0-50.0) % Hood % (Auto) 7.1 (2.0-14.0) % Eos % (Auto) 6.8 H (0.0-5.0) % Baso % (Auto) 0.6 (0.0-2.0) % Neut # (Auto) 6.26 (1.40-7.00) K/uL Lymph # (Auto) 3.41 (0.50-3.50) K/uL Hood # (Auto) 0.80 (0.00-1.00) K/uL Eos # (Auto) 0.77 H (0.00-0.50) K/uL Baso # (Auto) 0.07 (0.00-0.20) K/uL PT 10.0 (9.5-12.0) SEC INR 0.9 APTT 24.2 (21.0-31.3) SEC D-Dimer, Quantitative 283 (0-400) ng/mL VBG pH (7.31-7.41) VBG pCO2 (41-51) mmHG VBG pO2 mmHG VBG HCO3 (23-28) mmol/L VBG Total CO2 mmol/L VBG O2 Saturation % VBG Base Excess ((-2)-3) mmol/L O2 Delivery Device Sodium (136-145) mmol/L Potassium (3.5-5.1) mmol/L Chloride (98-107) mmol/L Carbon Dioxide (21.0-32.0) mmol/L BUN (7-18) mg/dL Creatinine (0.51-1.17) mg/dL Est Cr Clr Drug Dosing mL/min Estimated GFR (MDRD) mL/min Glucose (74-106) mg/dL Hemoglobin A1c (4.3-5.7) % Lactic Acid (0.4-2.0) mmol/L Calcium (8.5-10.1) mg/dL Magnesium (1.8-2.4) mg/dL Iron (50-175) ug/dL TIBC (250-450) ug/dL % Saturation Ferritin (8-388) ng/mL Total Bilirubin (0.2-1.0) mg/dL AST (15-37) U/L ALT (12-78) U/L Alkaline Phosphatase (46-116) IU/L Creatine Kinase (26-308) U/L Creatine Kinase Index (0.0-2.5) % CK-MB (CK-2) (0.00-3.60) ng/mL Troponin I (0.000-0.056) ng/mL NT-Pro-B Natriuret Pep (0-125) pg/mL Total Protein (6.4-8.2) g/dL Albumin (3.4-5.0) g/dL Triglycerides (30-150) mg/dL Cholesterol (100-200) mg/dL LDL Cholesterol, Calc (0-100) mg/dL HDL Cholesterol (40-60) mg/dL Vitamin B12 (193-986) pg/mL Folate (8.6-58.9) ng/mL TSH, Ultra Sensitive (0.358-3.740) mIU/mL Ethyl Alcohol (0.000-0.080) g/dL 09/22/18 09/22/18 09/22/18 Range/Units 01:15 01:15 01:15 WBC (4.0-10.2) K/uL RBC (3.77-5.09) M/uL Hgb (11.7-15.5) g/dL Hct (34.0-46.0) % MCV (84.0-98.0) fL MCH (28.2-33.3) pg MCHC (31.7-36.0) g/dL RDW (11.2-14.1) % Plt Count (150-350) K/uL Neut % (Auto) (45.0-80.0) % Lymph % (Auto) (10.0-50.0) % Hood % (Auto) (2.0-14.0) % Eos % (Auto) (0.0-5.0) % Baso % (Auto) (0.0-2.0) % Neut # (Auto) (1.40-7.00) K/uL Lymph # (Auto) (0.50-3.50) K/uL Hood # (Auto) (0.00-1.00) K/uL Eos # (Auto) (0.00-0.50) K/uL Baso # (Auto) (0.00-0.20) K/uL PT (9.5-12.0) SEC INR APTT (21.0-31.3) SEC D-Dimer, Quantitative (0-400) ng/mL VBG pH (7.31-7.41) VBG pCO2 (41-51) mmHG VBG pO2 mmHG VBG HCO3 (23-28) mmol/L VBG Total CO2 mmol/L VBG O2 Saturation % VBG Base Excess ((-2)-3) mmol/L O2 Delivery Device Sodium 143 (136-145) mmol/L Potassium 4.4 (3.5-5.1) mmol/L Chloride 103 (98-107) mmol/L Carbon Dioxide 30.6 (21.0-32.0) mmol/L BUN 13 (7-18) mg/dL Creatinine 0.81 (0.51-1.17) mg/dL Est Cr Clr Drug Dosing 60.39 mL/min Estimated GFR (MDRD) > 60 mL/min Glucose 119 H (74-106) mg/dL Hemoglobin A1c (4.3-5.7) % Lactic Acid 1.0 (0.4-2.0) mmol/L Calcium 8.9 (8.5-10.1) mg/dL Magnesium 1.9 (1.8-2.4) mg/dL Iron (50-175) ug/dL TIBC (250-450) ug/dL % Saturation Ferritin (8-388) ng/mL Total Bilirubin 0.3 (0.2-1.0) mg/dL AST 80 H (15-37) U/L ALT 48 (12-78) U/L Alkaline Phosphatase 116 (46-116) IU/L Creatine Kinase 252 (26-308) U/L Creatine Kinase Index 1.7 (0.0-2.5) % CK-MB (CK-2) 4.40 H* (0.00-3.60) ng/mL Troponin I 0.001 (0.000-0.056) ng/mL NT-Pro-B Natriuret Pep 66 (0-125) pg/mL Total Protein 7.8 (6.4-8.2) g/dL Albumin 3.6 (3.4-5.0) g/dL Triglycerides (30-150) mg/dL Cholesterol (100-200) mg/dL LDL Cholesterol, Calc (0-100) mg/dL HDL Cholesterol (40-60) mg/dL Vitamin B12 (193-986) pg/mL Folate (8.6-58.9) ng/mL TSH, Ultra Sensitive 2.767 (0.358-3.740) mIU/mL Ethyl Alcohol 0.003 (0.000-0.080) g/dL 09/22/18 09/22/18 09/22/18 Range/Units 07:15 07:15 07:15 WBC (4.0-10.2) K/uL RBC (3.77-5.09) M/uL Hgb (11.7-15.5) g/dL Hct (34.0-46.0) % MCV (84.0-98.0) fL MCH (28.2-33.3) pg MCHC (31.7-36.0) g/dL RDW (11.2-14.1) % Plt Count (150-350) K/uL Neut % (Auto) (45.0-80.0) % Lymph % (Auto) (10.0-50.0) % Hood % (Auto) (2.0-14.0) % Eos % (Auto) (0.0-5.0) % Baso % (Auto) (0.0-2.0) % Neut # (Auto) (1.40-7.00) K/uL Lymph # (Auto) (0.50-3.50) K/uL Hood # (Auto) (0.00-1.00) K/uL Eos # (Auto) (0.00-0.50) K/uL Baso # (Auto) (0.00-0.20) K/uL PT (9.5-12.0) SEC INR APTT (21.0-31.3) SEC D-Dimer, Quantitative (0-400) ng/mL VBG pH (7.31-7.41) VBG pCO2 (41-51) mmHG VBG pO2 mmHG VBG HCO3 (23-28) mmol/L VBG Total CO2 mmol/L VBG O2 Saturation % VBG Base Excess ((-2)-3) mmol/L O2 Delivery Device Sodium (136-145) mmol/L Potassium (3.5-5.1) mmol/L Chloride (98-107) mmol/L Carbon Dioxide (21.0-32.0) mmol/L BUN (7-18) mg/dL Creatinine (0.51-1.17) mg/dL Est Cr Clr Drug Dosing mL/min Estimated GFR (MDRD) mL/min Glucose (74-106) mg/dL Hemoglobin A1c 5.5 (4.3-5.7) % Lactic Acid (0.4-2.0) mmol/L Calcium (8.5-10.1) mg/dL Magnesium (1.8-2.4) mg/dL Iron 76 (50-175) ug/dL TIBC 293 (250-450) ug/dL % Saturation 25.44652 Ferritin 151 (8-388) ng/mL Total Bilirubin (0.2-1.0) mg/dL AST (15-37) U/L ALT (12-78) U/L Alkaline Phosphatase (46-116) IU/L Creatine Kinase 185 (26-308) U/L Creatine Kinase Index 2.4 (0.0-2.5) % CK-MB (CK-2) 4.40 H* (0.00-3.60) ng/mL Troponin I 0.196 H* (0.000-0.056) ng/mL NT-Pro-B Natriuret Pep (0-125) pg/mL Total Protein (6.4-8.2) g/dL Albumin (3.4-5.0) g/dL Triglycerides 33 (30-150) mg/dL Cholesterol 207 H (100-200) mg/dL LDL Cholesterol, Calc 79 (0-100) mg/dL HDL Cholesterol 121 H (40-60) mg/dL Vitamin B12 934 (193-986) pg/mL Folate 14.9 (8.6-58.9) ng/mL TSH, Ultra Sensitive (0.358-3.740) mIU/mL Ethyl Alcohol (0.000-0.080) g/dL 09/22/18 09/22/18 Range/Units 11:50 11:55 WBC (4.0-10.2) K/uL RBC (3.77-5.09) M/uL Hgb (11.7-15.5) g/dL Hct (34.0-46.0) % MCV (84.0-98.0) fL MCH (28.2-33.3) pg MCHC (31.7-36.0) g/dL RDW (11.2-14.1) % Plt Count (150-350) K/uL Neut % (Auto) (45.0-80.0) % Lymph % (Auto) (10.0-50.0) % Hood % (Auto) (2.0-14.0) % Eos % (Auto) (0.0-5.0) % Baso % (Auto) (0.0-2.0) % Neut # (Auto) (1.40-7.00) K/uL Lymph # (Auto) (0.50-3.50) K/uL Hood # (Auto) (0.00-1.00) K/uL Eos # (Auto) (0.00-0.50) K/uL Baso # (Auto) (0.00-0.20) K/uL PT (9.5-12.0) SEC INR APTT (21.0-31.3) SEC D-Dimer, Quantitative (0-400) ng/mL VBG pH 7.38 (7.31-7.41) VBG pCO2 45 (41-51) mmHG VBG pO2 64 mmHG VBG HCO3 26 (23-28) mmol/L VBG Total CO2 28 mmol/L VBG O2 Saturation 92 % VBG Base Excess 1 ((-2)-3) mmol/L O2 Delivery Device Nasal cannula Sodium (136-145) mmol/L Potassium (3.5-5.1) mmol/L Chloride (98-107) mmol/L Carbon Dioxide (21.0-32.0) mmol/L BUN (7-18) mg/dL Creatinine (0.51-1.17) mg/dL Est Cr Clr Drug Dosing mL/min Estimated GFR (MDRD) mL/min Glucose (74-106) mg/dL Hemoglobin A1c (4.3-5.7) % Lactic Acid (0.4-2.0) mmol/L Calcium (8.5-10.1) mg/dL Magnesium (1.8-2.4) mg/dL Iron (50-175) ug/dL TIBC (250-450) ug/dL % Saturation Ferritin (8-388) ng/mL Total Bilirubin (0.2-1.0) mg/dL AST (15-37) U/L ALT (12-78) U/L Alkaline Phosphatase (46-116) IU/L Creatine Kinase 155 (26-308) U/L Creatine Kinase Index (0.0-2.5) % CK-MB (CK-2) (0.00-3.60) ng/mL Troponin I 0.133 H* (0.000-0.056) ng/mL NT-Pro-B Natriuret Pep (0-125) pg/mL Total Protein (6.4-8.2) g/dL Albumin (3.4-5.0) g/dL Triglycerides (30-150) mg/dL Cholesterol (100-200) mg/dL LDL Cholesterol, Calc (0-100) mg/dL HDL Cholesterol (40-60) mg/dL Vitamin B12 (193-986) pg/mL Folate (8.6-58.9) ng/mL TSH, Ultra Sensitive (0.358-3.740) mIU/mL Ethyl Alcohol (0.000-0.080) g/dL NATALI Results - Last 24 hrs: Microbiology 09/22/18 02:00 Influenza Type A Antigen Screen - Final Nasal, Left NEGATIVE INFLUENZA A VIRUS AG REFERENCE RANGE: NEGATIVE Influenza Type B Antigen Screen - Final NEGATIVE INFLUENZA B VIRUS AG REFERENCE RANGE: NEGATIVE Med Orders - Current: Current Medications Discontinued Medications Acetaminophen (Tylenol) 650 mg PO Q4H PRN PRN Reason: Pain/Fever Albuterol (Proventil Neb Soln) 2.5 mg INH ONETIME ONE Stop: 09/22/18 01:13 Last Admin: 09/22/18 01:29 Dose: 2.5 mg Albuterol (Proventil Neb Soln) 2.5 mg NEB Q2H PRN PRN Reason: Dyspnea Albuterol/Ipratropium (Duoneb 3.0-0.5 Mg/3 Ml) 3 ml NEB Q4HRRT [facility] Last Admin: 09/22/18 17:07 Dose: 3 ml Aspirin (Halfprin) 81 mg PO DAILY [facility] Last Admin: 09/22/18 09:31 Dose: Not Given Budesonide (Pulmicort) 0.5 mg NEB ONETIME ONE Stop: 09/22/18 01:09 Last Admin: 09/22/18 01:29 Dose: 0.5 mg Budesonide (Pulmicort) 0.5 mg NEB BIDRT [facility] Last Admin: 09/22/18 09:32 Dose: Not Given Cyanocobalamin (Vitamin B12) 2,000 mcg PO DAILY [facility] Last Admin: 09/22/18 09:32 Dose: Not Given Cyanocobalamin (Vitamin B12) 2,000 mcg PO DAILY [facility] Ferrous Sulfate (Ferrous Sulfate) 325 mg PO DAILY [facility] Last Admin: 09/22/18 09:31 Dose: Not Given Guaifenesin/Dextromethorphan (Mucinex Dm Er 600-30 Mg) 1 tab PO BID [facility] Last Admin: 09/22/18 09:31 Dose: Not Given Guaifenesin/Dextromethorphan (Mucinex Dm Er 600-30 Mg) 1 tab PO BID PRN PRN Reason: Cough Ceftriaxone Sodium 1 gm/ (Sodium Chloride) 100 mls @ 200 mls/hr IV ONETIME ONE Stop: 09/22/18 01:37 Last Admin: 09/22/18 01:25 Dose: 200 mls/hr Levofloxacin/Dextrose 500 mg/ (Premix) 100 mls @ 100 mls/hr IV ONETIME ONE Stop: 09/22/18 02:07 Last Admin: 09/22/18 01:26 Dose: 100 mls/hr Ceftriaxone Sodium 1 gm/ (Sodium Chloride) 100 mls @ 200 mls/hr IV Q12H [facility] Last Admin: 09/22/18 13:32 Dose: 200 mls/hr Levofloxacin/Dextrose 500 mg/ (Premix) 100 mls @ 100 mls/hr IV Q24H [facility] Last Admin: 09/22/18 07:47 Dose: Not Given Levofloxacin/Dextrose 500 mg/ (Premix) 100 mls @ 100 mls/hr IV Q24H [facility] Lorazepam (Ativan) 1 mg PO Q4H PRN PRN Reason: Anxiety Last Admin: 09/22/18 04:26 Dose: 1 mg Methylprednisolone Sodium Succinate (Solu-Medrol) 125 mg IVPUSH ONETIME ONE Stop: 09/22/18 03:00 Last Admin: 09/22/18 04:20 Dose: 125 mg Morphine Sulfate (Morphine) 2 mg .XX ONETIME ONE Stop: 09/22/18 01:12 Last Admin: 09/22/18 01:18 Dose: 2 mg Morphine Sulfate (Morphine) 2 mg .XX Q2H PRN PRN Reason: Dyspnea Non-Formulary Medication (Budesonide/Formoterol Fumarate) 1 puff IH DAILY [facility] Ondansetron HCl (Zofran) 4 mg IVPUSH Q6H PRN PRN Reason: Nausea/Vomiting Last Admin: 09/22/18 04:26 Dose: 4 mg Sodium Chloride (Saline Flush) 10 ml FLUSH ASDIRECTED PRN PRN Reason: Keep Vein Open Last Admin: 09/22/18 04:28 Dose: 10 ml Sodium Chloride (Saline Flush) 10 ml FLUSH Q12H [facility] Last Admin: 09/22/18 07:47 Dose: Not Given Sodium Chloride (Saline Flush) 10 ml FLUSH Q12H [facility] Last Admin: 09/22/18 09:52 Dose: 10 ml Temazepam (Restoril) 15 mg PO BEDTIME PRN PRN Reason: Insomnia Thiamine HCl (Vitamin B-1) 100 mg IM ONETIME ONE Stop: 09/22/18 02:54 Last Admin: 09/22/18 04:31 Dose: Not Given Thiamine HCl (Vitamin B-1) 100 mg PO DAILY [facility] Thiamine HCl (Vitamin B-1) 100 mg IM ONETIME ONE Stop: 09/22/18 08:01 Last Admin: 09/22/18 09:32 Dose: Not Given
[2018-09-23] MEDS ORDERED: Cyanocobalamin (Vitamin B12) 1,000 MCG Tab PO SCH (08:00)
[2018-09-23] MEDS ORDERED: Thiamine 100 MG Tab PO SCH (08:00)
== END 2018-09-22 17:45 | disposition home or self-care (01) | DRG 190 ==
LOC: LL.ED 01:06 → LL.MS 02:20
PROVIDERS: ADMIT Family Medicine; ATTEND Family Medicine
DX: J43.1 Panlobular emphysema (principal); J18.1 Lobar pneumonia, unspecified organism; J30.9 Allergic rhinitis, unspecified; E78.00 Pure hypercholesterolemia, unspecified; M81.0 Age-related osteoporosis without current pathological fracture; F41.9 Anxiety disorder, unspecified; F32.9 Major depressive disorder, single episode, unspecified; M15.0 Primary generalized (osteo)arthritis; R74.8 Abnormal levels of other serum enzymes; E78.5 Hyperlipidemia, unspecified; R94.5 Abnormal results of liver function studies; E61.1 Iron deficiency; R00.0 Tachycardia, unspecified; D75.89 Other specified diseases of blood and blood-forming organs; F10.10 Alcohol abuse, uncomplicated; Z79.82 Long term (current) use of aspirin; Z90.49 Acquired absence of other specified parts of digestive tract; Z98.51 Tubal ligation status; Z79.899 Other long term (current) drug therapy; Z99.81 Dependence on supplemental oxygen; F17.210 Nicotine dependence, cigarettes, uncomplicated
CPT/HCPCS: 36415; 71045; 80053; 80061; 82550; 82553; 82607; 82728; 82746; 82803; 83036; 83540; 83550; 83605; 83735; 83880; 84443; 84484; 85025; 85379; 85610; 85730; 87040; 87804; 93005; 94640; 94761; 96365; 96375; 99285-25; A4217; A9270-GY; G0480; J0696; J1956; J2270; J2405; J2930; J7050; J7613-GY; J7620-GY

== ENCOUNTER 2018-10-11 18:26 | Emergency (ER) | payer MEDICAID ==
[2018-10-11] MEDS ORDERED: Budesonide 0.5 MG/2 ML Neb Susp NEB ONE (18:43)
[2018-10-11] MEDS ORDERED: Albuterol/Ipratropium 3.0-0.5 MG/3 ML Neb Soln NEB ONE (18:43)
[2018-10-11] MEDS ORDERED: Sodium Chloride 0.9% 10 ML Syringe FLUSH PRN (18:43)
--- NOTE | 2018-10-11 18:43 | EDM.PDOC ---
ED HPI GENERAL MEDICAL PROBLEM - General Chief Complaint: Respiratory Problem Stated Complaint: Dyspnea Time Seen by Provider: 10/11/18 18:35 Source of Information: Reports: Patient, Old Records ([facility] chart/EMR) History Limitations: Reports: No Limitations - History of Present Illness INITIAL COMMENTS - FREE TEXT/NARRATIVE: The patient drove herself to the emergency room via private automobile without oxygen therapy for evaluation of progressive dyspnea since this afternoon despite her last DuoNeb nebulizer treatment at about 17:00 hours. She has been compliant with all her medications including Symbicort, etc. By her history Patient did leave the hospital earlier for similar type symptoms after hospitalization on 09/22/18 leaving on the same day of admission and refusing further hospitalization at that time. She has not felt well since that time. The patient also denies any recent fever or known exposure to infection with stable persistent nonproductive cough and moderate wheezing since hospital discharge as above. She has not been smoking although she has increased her chronic O2 therapy occasionally to 3-4 L/m by nasal cannula. The patient denies any chest pain/pressure, heart flutter, dizziness, orthostasis, orthopnea, diaphoresis, paresthesias, recent decreased exercise tolerance, or any other anginal-type symptoms although her exercise tolerance is overall low secondary to her pulmonary disease. No recent history of abdominal pain, heartburn, nausea , diarrhea, melena, gross hematochezia, or any food intolerance, including fatty foods, etc.. She denies any gross hematuria, colic, or other UTI symptoms.. She also denies any specific pain or discomfort. Onset: Today, Gradual Duration: Chronic (As above), Getting Worse Location: Reports: Other (No pain) Quality: Reports: Same as Previous Episode Severity: Severe (Dyspnea) Improves with: Reports: None Worsens with: Reports: None Context: Denies: Sick Contact, Trauma Associated Symptoms: Reports: Cough, Shortness of Breath. Denies: Confusion, Chest Pain, cough w sputum, Diaphoresis, Fever/Chills, Headaches, Loss of Appetite, Malaise, Nausea/Vomiting, Rash, Seizure, Syncope, Weakness Treatments CELLOPHANER: Reports: Breathing Treatments, Oxygen - Related Data Allergies Allergy/AdvReac Type Severity Reaction Status Date / Time No Known Allergies Allergy Verified 10/11/18 18:27 Home Meds: Home Meds Budesonide/Formoterol Fumarate [Symbicort 160-4.5 Mcg Inhaler] 1 puff IH DAILY 12/31/17 [History] Ipratropium/Albuterol Sulfate [Iprat-Albut 0.5-3(2.5) MG/3 ML] 3 ml NEB QID [History] Dextromethorphan/guaiFENesin [Mucinex DM ER 600-30 MG] 1 tab PO BID PRN tab.er 09/22/18 [Rx] Thiamine [Vitamin B-1] 100 mg PO DAILY #100 tablet 09/22/18 [Rx] Magnesium Oxide 400 mg PO BID #60 tab 10/11/18 [Rx] Past Medical History HEENT History: Reports: Allergic Rhinitis, Other (See Below). Denies: Cataract , Glaucoma, Hard of Hearing, Impaired Vision, Macular Degeneration, Otitis Media , Retinal Detachment Other HEENT History: Allergic rhinitis as a child currently nonproblematic Cardiovascular History: Reports: Arrhythmia, High Cholesterol, Other (See Below) . Denies: Afib, Aneurysm, Blood Clots/VTE/DVT, CAD, Heart Failure, Heart Murmur , Hypertension, UT, PVD, Syncope Other Cardiovascular History: Repolarization changes versus borderline incomplete right bundle branch block Respiratory History: Reports: Asthma, Bronchitis, Recurrent, COPD, Pneumonia, Recurrent, Pulmonary Fibrosis, SOB, Other (See Below). Denies: Intubation, Difficult, Intubation, Previous, PE, Pneumothorax, Sleep Apnea Other Respiratory History: Asthma as a child with secondary COPD and pulmonary fibrosis likely secondary to tobacco abuse. O2 dependent COPD currently used on a 34 L/m when necessary basis. Gastrointestinal History: Reports: None. Denies: Bowel Obstruction, Celiac Disease, Cholelithiasis, Chronic Constipation, Chronic Diarrhea, Colon Polyp, Fecal Incontinence, Gastritis, GERD, GI Bleed, Hepatitis, Hiatal Hernia, Inflammatory Bowel Disease, Irritable Bowel Syndrome, Jaundice, Pancreatitis, PUD Genitourinary History: Reports: None. Denies: Acute Renal Failure, Chronic Renal Insuffiency, Renal Calculus, Retention, Urinary, STD, Urinary Incontinence , UTI, Recurrent BUMPER AND PAINTER History: Reports: . Denies: Dysfunctional Uterine Bleeding, Endometriosis, Spontaneous : 2 Para: 2 LMP (Approximate): Other (See Below) Other BUMPER AND PAINTER History: Menopause at age 51. Full term without complications during pregnancies or deliveries Musculoskeletal History: Reports: Arthritis, Fracture, Neck Pain, Chronic, Osteoarthritis, Osteoporosis, Other (See Below). Denies: Back Pain, Chronic, Gout, RA, SLE Other Musculoskeletal History: Old cervical dens fracture by MRI on 05/23/17. Right anterior cruciate ligament tear in August 2015; right-sided popliteal cyst. Neurological History: Reports: None. Denies: Cerebral Aneurysms, Concussion, CVA, Headaches, Chronic, Head Trauma, Migraines, MS, Neuropathy, Peripheral, Parkinson's, Seizure, TIA, Vertigo Psychiatric History: Reports: Addiction, Anxiety, Depression, Other (See Below) . Denies: Abuse, Victim of, ADD, ADHD, Psych Hospitalization(s), PTSD, Suicide Attempt, Suicidal Ideation Other Psychiatric History: Alcohol abuse as below, no current treatment for anxiety depression disorder Endocrine/Metabolic History: Reports: Osteopenia, Osteoporosis, Other (See Below ). Denies: Diabetes, Gestational, Diabetes, Type I, Diabetes, Type II, Diabetes Mellitus, Type 3c, Hypothyroidism, IDDM Other Endocrine/Metabolic History: Hypoalbuminemia Hematologic History: Reports: Anemia, Iron Deficiency, Other (See Below). Denies: Blood Transfusion(s) Other Hematologic History: Thrombocytopenia. Macrocytosis possibly secondary to alcohol use with current thiamine therapy. Immunologic History: Reports: None. Denies: AIDS, HIV, SLE Oncologic (Cancer) History: Reports: Other (See Below). Denies: Basal Cell Carcinoma, Breast, Cervix, Colon, Hodgkin's Lymphoma, Leukemia, Lymphoma, Malignant Melanoma, Non-Hodgkin's Lymphoma, Squamous Cell Carcinoma, Uterine Other Oncologic History: Multiple myeloma. Dermatologic History: Reports: None. Denies: Eczema, Psoriasis - Infectious Disease History Infectious Disease History: Reports: Mononucleosis (Age 13). Denies: C- Difficile, Chicken Pox, Measles, Meningitis, MRSA, Mumps, Pertussis (Whooping Cough), Rheumatic Fever, Rubella, Shingles, TB, VRE - Past Surgical History Head Surgeries/Procedures: Reports: None HEENT Surgical History: Reports: Adenoidectomy, Oral Surgery, Tonsillectomy, Other (See Below). Denies: Cataract Surgery, Eye Surgery, Laser Surgery, LASIK , Myringotomy w Tube(s), Naso-Sinus Surgery Other HEENT Surgeries/Procedures: Tonsillectomy and adenoidectomy at 5 years of age. Karthaus teeth extraction 4 at age 18. Additional teeth extractions. Cardiovascular Surgical History: Reports: None. Denies: Varicose Respiratory Surgical History: Reports: None. Denies: Thoracentesis GI Surgical History: Reports: None. Denies: Appendectomy, Cholecystectomy, Colonoscopy, EGD, Hernia, Abdominal, Hernia, Inguinal, Hernia Repair/Other, Polypectomy Female Surgical History: Reports: None. Denies: Section, D&C, Hysterectomy, Salpingo-Oophorectomy, Tubal Ligation Endocrine Surgical History: Reports: None Neurological Surgical History: Reports: C-Spine, Spinal Fusion, Other (See Below ). Denies: Discectomy, Laminectomy, Lumbar Spine, Sacral Spine, Thoracic Spine , Vertebroplasty Other Neurological Surgeries/Procedures: C1-C2 posterior spinal fusion by MRI with graft from right hip at age 23 and 24. Musculoskeletal Surgical History: Reports: None. Denies: Arthroscopic Procedure , Carpal Tunnel, Ganglion Cyst, Joint Replacement, ORIF, Shoulder Surgery Oncologic Surgical History: Reports: None Dermatological Surgical History: Reports: None - Past Imaging History Past Imaging History: Reports: DEXA Scan (05/23/17.), MRI (MRI of the C-spine on 05/23/17. Right knee on 08/25/15), Ultrasound (Soft tissue right wrist ultrasound on 08/31/17) Social & Family History - Family History HEENT: Reports: None. Denies: Glaucoma, Macular Degeneration, Retinal Detachment Cardiac: Reports: CAD, UT, Other (See Below). Denies: Afib, Arrhythmia, Blood Clots/VTE/DVT, Heart Failure, High Cholesterol, Hypertension, Pacemaker, Syncope Other Cardiac Family History: Paternal aunts x4 with history of UT with 2 of them dying in their 60s from a fatal UT, maternal aunt with fatal UT at age 77, maternal grandmother with fatal UT in her 60s Respiratory: Reports: COPD, Other (See Below). Denies: Asthma, PE, Pneumothorax , Sleep Apnea Other Respiratory Family Hisory: Mother with COPD GI: Reports: None. Denies: Celiac Disease, Cholelithiasis, Colon Polyps, GERD, GI bleed, Inflammatory Bowel Disease, Irritable Bowel Syndrome, PUD : Reports: None. Denies: Dialysis, Renal Calculus, Renal Disease/ Insufficiency OBGYN: Reports: None. Denies: Endometriosis, Recurrent Spontaneous Musculoskeletal: Reports: None. Denies: Arthritis, Gout, Osteoarthritis, RA, SLE Neurological: Reports: None. Denies: Alzheimers Disease, Cerebral Aneurysms, CVA, Dementia, Migraines, MS, Neuropathy, Peripheral, Parkinson's, Seizure, TIA Psychiatric: Reports: Anxiety, Depression, Other (See Below). Denies: Abuse, Victim of, ADHD, Psych Hospitalization(s), Suicide Attempt Other Psychiatric Family History: Almost all family members on both paternal and maternal sides have problems with anxiety depression disorder and alcohol abuse Endocrine/Metabolic: Reports: None. Denies: Diabetes, Gestational, Diabetes, Type I, Diabetes, type II, Diabetes Mellitus, Type 3c, Hypothyroidism, IDDM Hematologic: Reports: None. Denies: SLE Immunologic: Reports: None. Denies: AIDS, HIV, SLE Dermatologic: Reports: None. Denies: Eczema, Psoriasis Oncologic: Reports: Lung, Metastatic, Skin, Other (See Below). Denies: Breast, Cervix, Colon, Hodgkin's Lymphoma, Leukemia, Lymphoma, Non-Hodgkin's Lymphoma, Ovarian, Uterine Other Oncologic Family History: Father with fatal metastatic skin cancer/ melanoma at age 73, maternal aunt with fatal lung cancer in her 60s with history of tobacco use - Tobacco Use Smoking Status *Q: Current Every Day Smoker Tobacco Use Within Last Twelve Months: Cigarettes Years of Tobacco use: 42 Packs/Tins Daily: 1 Packs/Tins Daily Comment: Started smoking at age 11 with maximum use of 2 packs per day. The patient has not smoked recently secondary to her COPD exacerbation , however? Used Tobacco, but Quit: No Smoking Cessation Information Provided To Patient: Yes Second Hand Smoke Exposure: Yes Source of Second Hand Smoke Exposure: Significant other Second Hand Smoke Education Provided: Yes - Caffeine Use Caffeine Use: Reports: Coffee (One cup per day). Denies: Energy Drinks, Soda, Tea - Alcohol Use Alcohol Use History: Yes Days Per Week of Alcohol Use: 7 Number of Drinks Per Day: 15 Number of Drinks Per Day Comment: History of alcohol abuse since age 16. No previous DWIs or alcohol treatment. Total Drinks Per Week: 105 Date of Last Drink: 10/11/18 Alcohol Use in Last Twelve Months: Yes Alcohol Use Frequency: Binges - Recreational Drug Use Recreational Drug Use: Yes Drug Use in Last 12 Months: No Recreational Drug Type: Reports: Marijuana/Hashish (Daily use during her teenage years until her 20s). Denies: Amphetamines (Speed), Cocaine, Heroin, Inhalants (Glues, Solvents, Aerosols), LSD (Acid), Methamphetamine, Morphine, Oxycodone Recreational Drug Route: Reports: Inhaled - Living Situation & Occupation Living situation: Reports: (2012, 2 children), with Significant Other Occupation: Unemployed (Previously worked in the [employer] department at [employer] in [place]) ED ROS GENERAL - Review of Systems Review Of Systems: ROS reveals no pertinent complaints other than HPI. ED EXAM, GENERAL - Physical Exam Exam: See Below Exam Limited By: No Limitations General Appearance: Alert, WD/WN, Anxious (Mild to moderate), Mild Distress ( Secondary to her dyspnea) Eye Exam: Bilateral Eye: EOMI, Normal Inspection (No nystagmus), PERRL Ears: Normal External Exam, Normal Canal, Hearing Grossly Normal, Normal TMs Nose: Normal Inspection, Normal Mucosa, No Blood Throat/Mouth: Normal Lips, Normal Gums, Normal Oropharynx, Normal Voice, No Airway Compromise. No: Normal Teeth (Multiple missing teeth with no acute caries) Head: Atraumatic, Normocephalic. No: Facial Swelling, Facial Tenderness, Sinus Tenderness Neck: Normal Inspection, Supple, Non-Tender, Full Range of Motion. No: Carotid Bruit, Lymphadenopathy (L), Lymphadenopathy (R), Thyromegaly Respiratory/Chest: Chest Non-Tender, Respiratory Distress (Mild), Decreased Breath Sounds, Rales (Moderate diffuse bilaterally initially however only very occasional after aggressive treatment as below), Rhonchi (Moderate diffuse bilateral initially with improvement prior to discharge), Wheezing (As above), Accessory Muscle Use (Mild intercostal improved at discharge), Retractions (As above), Prolonged Expiration. No: Pleural Rub, Splinting Cardiovascular: Normal Peripheral Pulses, Regular Rate, Rhythm, No Edema, No Gallop, No JVD, No Murmur, No Rub. No: Gallop/S3, Gallop/S4, Friction Rub Peripheral Pulses: 2+: Radial (L), Radial (R) GI/Abdominal: Normal Bowel Sounds, Soft, Non-Tender, No Organomegaly, No Distention, No Abnormal Bruit, No Mass. No: Guarding (Female) Exam: Deferred Rectal (Female) Exam: Deferred Back Exam: Normal Inspection, Full Range of Motion. No: CVA Tenderness (L), CVA Tenderness (R), Muscle Spasm Extremities: Normal Inspection, Normal Range of Motion, Non-Tender, No Pedal Edema, Normal Capillary Refill. No: Leeanna's Sign Neurological: Alert, Oriented, CN II-XII Intact, Normal Cognition, Normal Gait, No Motor/Sensory Deficits, Other (No intoxication or odor of alcohol) Psychiatric: Anxious (Mild to moderate), Depressed Mood (Borderline) Skin Exam: Warm, Dry, Intact, Normal Color, No Rash. No: Diaphoretic, Wound/ Incision Lymphatic: No Adenopathy Course - Vital Signs Last Recorded V/S: Last Vital Signs Temp 36.9 C 10/11/18 18:32 Pulse 94 10/11/18 18:32 Resp 18 10/11/18 19:10 BP 108/74 10/11/18 19:10 Pulse Ox 88 L 10/11/18 19:10 Vital Signs - 24 hr 10/11/18 10/11/18 10/11/18 18:28 18:32 18:43 Temperature [ 36.9 C Temporal] Pulse, 94 Peripheral [ Pulse Oximetry] Respiratory 24 H Rate Blood Pressure 103/64 [Left Upper Arm ] O2 Sat by Pulse 88 L Oximetry O2 Sat by Pulse 90 L 89 L Oximetry [ Nasal Cannula] 10/11/18 10/11/18 18:45 19:10 Temperature [ Temporal] Pulse, Peripheral [ Pulse Oximetry] Respiratory 24 H 18 Rate Blood Pressure 117/54 L 108/74 [Left Upper Arm ] O2 Sat by Pulse 91 L 88 L Oximetry O2 Sat by Pulse Oximetry [ Nasal Cannula] - Orders/Labs/Meds Orders: Active Orders 24 hr Category Date Time Status Cardiac Monitoring [RC] CONTINUOUS Care 10/11/18 18:43 Active Communication Order [RC] ROUTINE Care 10/11/18 18:43 Active Oxygen Therapy, ED [RC] CONTINUOUS Care 10/11/18 18:43 Active Peripheral IV Care [RC] . DIRECTED Care 10/11/18 18:44 Active Pulse Oximetry [RC] CONTINUOUS Care 10/11/18 18:43 Active Up With Assistance [RC] ASDIRECTED Care 10/11/18 18:43 Active Nothing Per Oral Diet [DIET] Diet 10/11/18 Breakfast Active Chest 1V Frontal [CR] Stat Exams 10/11/18 18:43 Taken CULTURE SPUTUM + SMEAR [RM] Urgent Lab 10/11/18 18:43 Ordered UA W/MICROSCOPIC [URIN] Stat Lab 10/11/18 18:43 Ordered Sodium Chloride 0.9% [Saline Flush] Med 10/11/18 18:43 Active 10 ml FLUSH ASDIRECTED PRN Obtain Past Medical Record [OM.PC] Stat Oth 10/11/18 18:43 Active Peripheral IV Insertion Adult [OM.PC] Stat Oth 10/11/18 18:43 Ordered Resuscitation Status Routine Resus Stat 10/11/18 18:43 Ordered Medication Orders Sodium Chloride (Saline Flush) 10 ml FLUSH ASDIRECTED PRN PRN Reason: Keep Vein Open Last Admin: 10/11/18 19:03 Dose: 10 ml Labs: Laboratory Tests 10/11/18 10/11/18 10/11/18 Range/Units 18:55 18:55 18:55 WBC 9.2 (4.0-10.2) K/uL RBC 4.40 (3.77-5.09) M/uL Hgb 15.0 (11.7-15.5) g/dL Hct 44.5 (34.0-46.0) % MCV 101.1 H (84.0-98.0) fL MCH 34.1 H (28.2-33.3) pg MCHC 33.7 (31.7-36.0) g/dL RDW 12.5 (11.2-14.1) % Plt Count 202 D (150-350) K/uL Neut % (Auto) 55.8 (45.0-80.0) % Lymph % (Auto) 30.0 (10.0-50.0) % Cook % (Auto) 7.0 (2.0-14.0) % Eos % (Auto) 6.3 H (0.0-5.0) % Baso % (Auto) 0.9 (0.0-2.0) % Neut # (Auto) 5.14 (1.40-7.00) K/uL Lymph # (Auto) 2.77 (0.50-3.50) K/uL Cook # (Auto) 0.65 (0.00-1.00) K/uL Eos # (Auto) 0.58 H (0.00-0.50) K/uL Baso # (Auto) 0.08 (0.00-0.20) K/uL PT (9.5-12.0) SEC INR APTT 28.4 (21.0-31.3) SEC Sodium 142 (136-145) mmol/L Potassium 3.8 (3.5-5.1) mmol/L Chloride 103 (98-107) mmol/L Carbon Dioxide 25.5 (21.0-32.0) mmol/L BUN 10 (7-18) mg/dL Creatinine 1.19 H (0.51-1.17) mg/dL Est Cr Clr Drug Dosing 41.89 mL/min Estimated GFR (MDRD) 47 mL/min Glucose 94 (74-106) mg/dL Lactic Acid (0.4-2.0) mmol/L Calcium 8.2 L (8.5-10.1) mg/dL Magnesium 1.6 L (1.8-2.4) mg/dL Total Bilirubin 0.2 (0.2-1.0) mg/dL AST 24 (15-37) U/L ALT 31 (12-78) U/L Alkaline Phosphatase 94 (46-116) IU/L Creatine Kinase 151 (26-308) U/L Creatine Kinase Index 2.2 (0.0-2.5) % CK-MB (CK-2) 3.30 (0.00-3.60) ng/mL Troponin I 0.000 (0.000-0.056) ng/mL NT-Pro-B Natriuret Pep 48 (0-125) pg/mL Total Protein 7.4 (6.4-8.2) g/dL Albumin 3.5 (3.4-5.0) g/dL 10/11/18 10/11/18 Range/Units 18:55 18:55 WBC (4.0-10.2) K/uL RBC (3.77-5.09) M/uL Hgb (11.7-15.5) g/dL Hct (34.0-46.0) % MCV (84.0-98.0) fL MCH (28.2-33.3) pg MCHC (31.7-36.0) g/dL RDW (11.2-14.1) % Plt Count (150-350) K/uL Neut % (Auto) (45.0-80.0) % Lymph % (Auto) (10.0-50.0) % Cook % (Auto) (2.0-14.0) % Eos % (Auto) (0.0-5.0) % Baso % (Auto) (0.0-2.0) % Neut # (Auto) (1.40-7.00) K/uL Lymph # (Auto) (0.50-3.50) K/uL Cook # (Auto) (0.00-1.00) K/uL Eos # (Auto) (0.00-0.50) K/uL Baso # (Auto) (0.00-0.20) K/uL PT 9.5 (9.5-12.0) SEC INR 0.9 APTT (21.0-31.3) SEC Sodium (136-145) mmol/L Potassium (3.5-5.1) mmol/L Chloride (98-107) mmol/L Carbon Dioxide (21.0-32.0) mmol/L BUN (7-18) mg/dL Creatinine (0.51-1.17) mg/dL Est Cr Clr Drug Dosing mL/min Estimated GFR (MDRD) mL/min Glucose (74-106) mg/dL Lactic Acid 1.7 (0.4-2.0) mmol/L Calcium (8.5-10.1) mg/dL Magnesium (1.8-2.4) mg/dL Total Bilirubin (0.2-1.0) mg/dL AST (15-37) U/L ALT (12-78) U/L Alkaline Phosphatase (46-116) IU/L Creatine Kinase (26-308) U/L Creatine Kinase Index (0.0-2.5) % CK-MB (CK-2) (0.00-3.60) ng/mL Troponin I (0.000-0.056) ng/mL NT-Pro-B Natriuret Pep (0-125) pg/mL Total Protein (6.4-8.2) g/dL Albumin (3.4-5.0) g/dL Meds: Medications Generic Name Dose Route Start Last Admin Trade Name Mirella PRN Reason Stop Dose Admin Sodium Chloride 10 ml 10/11/18 18:43 10/11/18 19:03 Saline Flush FLUSH 10 ml ASDIRECTED PRN Administration Keep Vein Open Discontinued Medications Generic Name Dose Route Start Last Admin Trade Name Mirella PRN Reason Stop Dose Admin Albuterol/Ipratropium 3 ml 10/11/18 18:43 10/11/18 19:03 Duoneb 3.0-0.5 Mg/3 Ml NEB 10/11/18 18:44 3 ml ONETIME ONE Administration Budesonide 0.5 mg 10/11/18 18:43 10/11/18 19:03 Pulmicort NEB 10/11/18 18:44 0.5 mg ONETIME ONE Administration Magnesium Oxide 800 mg 10/11/18 19:49 10/11/18 19:58 Magnesium Oxide PO 10/11/18 19:50 800 mg ONETIME ONE Administration Methylprednisolone Sodium Succinate 125 mg 10/11/18 18:47 10/11/18 19:03 Solu-Medrol IVPUSH 10/11/18 18:48 125 mg ONETIME ONE Administration - Radiology Interpretation Free Text/Narrative:: environmental monitoring specialist showed normal sinus rhythm in the 80s to 90s with no ectopy or arrhythmia Chest x-ray, portable, showed evidence of moderate to severe pulmonary obstructive disease with additional pulmonary hypertension, however no significant pulmonary infiltrates, CHF, or pneumothorax. Mild right CVA atelectasis with no significant pleural effusion Departure - Departure Time of Disposition: 20:10 Disposition: Home, Self-Care 01 Condition: Good Clinical Impression: COPD (chronic obstructive pulmonary disease), Osteoarthritis, Macrocytosis without anemia, Mixed anxiety depressive disorder, Alcohol abuse, Tobacco abuse counseling, Hypomagnesemia - Discharge Information *PRESCRIPTION DRUG MONITORING PROGRAM REVIEWED*: Not Applicable *COPY OF PRESCRIPTION DRUG MONITORING REPORT IN PATIENT JUAN: Not Applicable Prescriptions: Magnesium Oxide 400 mg PO BID #60 tab Instructions: Chronic Obstructive Pulmonary Disease, [id number] Referrals: Anna Melvin PA-C [Primary Care Provider] - Forms: ED Department Discharge Additional Instructions: 1. Followup with your regular provider in 5-7 days as directed for reevaluation and recommended repeat magnesium level. Bring these discharge instructions with you to that visit. 2. Tylenol 650 mg by mouth every 4 hours and/or OTC ibuprofen 2-3 tabs by mouth every 6 hours with food as directed./needed. You may stagger these medications for 48-72 hours only, which essentially means that you are receiving a pain medication about every 2 hours. 3. Strict compliance with your medications, including nebulizer treatments at least on a every 6 hours basis with additional every 4 hours as needed as discussed. 4. Immediately after this visit verify that your cellular telephone's voicemail has been activated and is empty. Also verify that your home telephone 's answering machine is operating properly and has space to receive messages. Note that it is sometimes necessary for us to be able to contact you at a later date to discuss your medical care. 5. Please remember that we are ALWAYS here for you and want to answer any questions you may have. Feel free to call the hospital any time and we call you back JESUS. 6. Continue home O2 therapy 2-3 L/m on a continuous basis with increased to 4 L as needed depending on your symptoms and clinical course. - Problem List & Annotations (1) COPD (chronic obstructive pulmonary disease) SNOMED Code(s): 89282855 Code(s): J44.9 - CHRONIC OBSTRUCTIVE PULMONARY DISEASE, UNSPECIFIED Status : Acute Priority: High Current Visit: Yes Annotation/Comment:: She has had persistent symptoms since hospital discharge on 09/22/18 as above. Points of medical therapy strongly encouraged. Overall excellent results with aggressive treatment in the emergency room including IV Solu-Medrol therapy. She did tolerate O2 at 2 L/m by nasal cannula. Note that her O2 sat was only 88% on room air after driving a block to the hospital without oxygen. Note chronic O2 therapy as above. Continue close follow-up with her regular provider as per discharge instructions. Qualifiers: COPD type: emphysema Emphysema type: panlobular Qualified Code(s): J43.1 - Panlobular emphysema (2) Hypomagnesemia SNOMED Code(s): 575464474 Code(s): E83.42 - HYPOMAGNESEMIA Status: Acute Priority: High Current Visit: Yes Onset Date: 10/11/18 Annotation/Comment:: High-dose magnesium oxide given in the emergency room. Initiate high-dose magnesium oxide therapy on an outpatient basis, which should also be beneficial for her COPD. Close follow-up by regular provider as per discharge instructions. Set her IV magnesium sulfate infusions depending on her clinical course. (3) Osteoarthritis SNOMED Code(s): 744822165 Code(s): M19.90 - UNSPECIFIED OSTEOARTHRITIS, UNSPECIFIED SITE Status: Chronic Priority: Medium Current Visit: Yes Annotation/Comment:: Stable by history Qualifiers: Osteoarthritis location: multiple joints Osteoarthritis type: primary Qualified Code(s): M15.0 - Primary generalized (osteo)arthritis (4) Macrocytosis without anemia SNOMED Code(s): 930843606 Code(s): D75.89 - OTHER SPECIFIED DISEASES OF BLOOD AND BLOOD-FORMING ORGANS Status: Acute Priority: Medium Current Visit: Yes Onset Date: 07/06/16 Annotation/Comment:: Likely secondary to alcohol abuse with current thiamine therapy. Continue to observe closely by her regular providers. (5) Hyperlipidemia SNOMED Code(s): 65437488 Code(s): E78.5 - HYPERLIPIDEMIA, UNSPECIFIED Status: Acute Priority: Medium Current Visit: Yes Onset Date: 07/06/16 Annotation/Comment:: Not currently under therapy. Note history of alcohol abuse. Qualifiers: Hyperlipidemia type: pure hypercholesterolemia Qualified Code(s): E78.00 - Pure hypercholesterolemia, unspecified; E78.0 - Pure hypercholesterolemia (6) Alcohol abuse SNOMED Code(s): 84520659 Code(s): F10.10 - ALCOHOL ABUSE, UNCOMPLICATED Status: Chronic Priority: High Current Visit: Yes Annotation/Comment:: Note history of alcohol abuse. Patient has refused recommended alcohol treatment in the past. No previous history of DTs, seizures, etc. (7) Tobacco abuse counseling SNOMED Code(s): 873440233, 026616195, 726709711 Code(s): Z71.6 - TOBACCO ABUSE COUNSELING Status: Chronic Priority: Medium Current Visit: Yes Annotation/Comment:: Patient denies recent tobacco use secondary to her recent dyspnea and COPD. Continued tobacco cessation strongly encouraged today and by her regular providers at hospital discharge on 09/22/18 as above. (8) Multiple myeloma SNOMED Code(s): 216634029 Code(s): C90.00 - MULTIPLE MYELOMA NOT HAVING ACHIEVED REMISSION Status: Suspected Priority: High Current Visit: No Onset Date: ~07/06/16 Annotation/Comment:: Patient has yet to have recommended whole body bone scan secondary to previous suspicious distant x-rays per the radiology department at [facility] with suspicion of possible multiple myeloma based on lesions noted in the pelvis. Differential diagnosis includes metastatic disease , etc.. She does need to discuss this further with her regular provider with further oncology referral depending on these results. Note problems with current alcohol abuse. Qualifiers: Multiple myeloma remission status: unspecified Qualified Code(s): C90.00 - Multiple myeloma not having achieved remission (9) Mixed anxiety depressive disorder SNOMED Code(s): 740771805 Code(s): F41.8 - OTHER SPECIFIED ANXIETY DISORDERS Status: Chronic Priority: High Current Visit: Yes Annotation/Comment:: Note current alcohol abuse. Continue to observe closely by regular provider. - Problem List Review Problem List Initiated/Reviewed/Updated: Yes - My Orders Last 24 Hours: My Active Orders 10/11/18 18:43 Cardiac Monitoring [RC] CONTINUOUS Communication Order [RC] ROUTINE Oxygen Therapy, ED [RC] CONTINUOUS Pulse Oximetry [RC] CONTINUOUS Up With Assistance [RC] ASDIRECTED Chest 1V Frontal [CR] Stat CULTURE SPUTUM + SMEAR [RM] Urgent UA W/MICROSCOPIC [URIN] Stat Sodium Chloride 0.9% [Saline Flush] 10 ml FLUSH ASDIRECTED PRN Obtain Past Medical Record [OM.PC] Stat Peripheral IV Insertion Adult [OM.PC] Stat Resuscitation Status Routine 10/11/18 18:44 Peripheral IV Care [RC] . DIRECTED 10/11/18 Breakfast Nothing Per Oral Diet [DIET] - Assessment/Plan Last 24 Hours: My Active Orders 10/11/18 18:43 Cardiac Monitoring [RC] CONTINUOUS Communication Order [RC] ROUTINE Oxygen Therapy, ED [RC] CONTINUOUS Pulse Oximetry [RC] CONTINUOUS Up With Assistance [RC] ASDIRECTED Chest 1V Frontal [CR] Stat CULTURE SPUTUM + SMEAR [RM] Urgent UA W/MICROSCOPIC [URIN] Stat Sodium Chloride 0.9% [Saline Flush] 10 ml FLUSH ASDIRECTED PRN Obtain Past Medical Record [OM.PC] Stat Peripheral IV Insertion Adult [OM.PC] Stat Resuscitation Status Routine 10/11/18 18:44 Peripheral IV Care [RC] . DIRECTED 10/11/18 Breakfast Nothing Per Oral Diet [DIET] Assessment:: As above Plan: As above. Extensive precautions were given to the patient, who is in agreement with the treatment plan. See Patient Instructions for further treatment and plan.
[2018-10-11] MEDS ORDERED: methylPREDNISolone Sodium Succinate 125 MG/2 ML SDV IVPUSH ONE (18:47)
[2018-10-11] MEDS ORDERED: Magnesium Oxide 400 MG Tab PO ONE (19:49)
[2018-10-11 21:13] VITALS: BP 122/68; PULSE 79
== END 2018-10-11 20:05 | disposition home or self-care (01) ==
LOC: LL.ED 18:26
DX: J44.9 Chronic obstructive pulmonary disease, unspecified (principal); E83.42 Hypomagnesemia; M19.90 Unspecified osteoarthritis, unspecified site; D75.89 Other specified diseases of blood and blood-forming organs; F41.8 Other specified anxiety disorders; F10.10 Alcohol abuse, uncomplicated; Z71.6 Tobacco abuse counseling; C90.00 Multiple myeloma not having achieved remission
CPT/HCPCS: 36415; 71045; 80053; 82550; 82553; 83605; 83735; 83880; 84484; 85025; 85610; 85730; 94640; 96374; 99284; A9270; J2930; J7620-GY

== ENCOUNTER 2019-02-13 22:24 | Emergency (ER) | payer MEDICAID ==
[2019-02-13] MEDS ORDERED: methylPREDNISolone Sod Succ 125 MG in Sodium Chloride 0.9% 100 ML IV ONE (22:46)
[2019-02-13] MEDS ORDERED: Sodium Chloride 0.9% 10 ML Syringe FLUSH PRN (22:50)
[2019-02-13] MEDS ORDERED: methylPREDNISolone Sodium Succinate 125 MG/2 ML SDV IVPUSH ONE (22:50)
--- NOTE | 2019-02-13 23:04 | EDM.PDOC ---
ED HPI GENERAL MEDICAL PROBLEM - General Chief Complaint: Respiratory Problem Stated Complaint: SOB Time Seen by Provider: 02/13/19 22:46 Source of Information: Reports: Patient, EMS History Limitations: Reports: No Limitations - History of Present Illness INITIAL COMMENTS - FREE TEXT/NARRATIVE: Pt became SOB this evening while cleaning her house Has hx/o COPD No fever No cough NO chest pain Does use oxygen as needed at home and has HHn at e Was given Duo-neb by EMS and states is feeling much better Onset: Gradual Duration: Hour(s): Location: Reports: Chest Worsens with: Reports: Breathing Context: Reports: Activity Associated Symptoms: Reports: Shortness of Breath Treatments TRUCK GREASER: Reports: Breathing Treatments, Oxygen - Related Data Allergies Allergy/AdvReac Type Severity Reaction Status Date / Time No Known Allergies Allergy Verified 02/13/19 22:33 Home Meds: Home Meds Budesonide/Formoterol Fumarate [Symbicort 160-4.5 Mcg Inhaler] 1 puff IH DAILY 12/31/17 [History] Ipratropium/Albuterol Sulfate [Iprat-Albut 0.5-3(2.5) MG/3 ML] 3 ml NEB QID PRN 12/31/17 [History] Dextromethorphan/guaiFENesin [Mucinex DM ER 600-30 MG] 1 tab PO BID PRN tab.er 09/22/18 [Rx] Thiamine [Vitamin B-1] 100 mg PO DAILY #100 tablet 09/22/18 [Rx] Aspirin 81 mg PO DAILY 02/13/19 [History] Ferrous Sulfate [Iron] 325 mg PO MOTH 02/13/19 [History] Magnesium Oxide 400 mg PO DAILY 02/13/19 [History] Past Medical History HEENT History: Reports: Allergic Rhinitis, Other (See Below) Other HEENT History: Allergic rhinitis as a child currently nonproblematic Cardiovascular History: Reports: Arrhythmia, High Cholesterol, Other (See Below) Other Cardiovascular History: Repolarization changes versus borderline incomplete right bundle branch block Respiratory History: Reports: Asthma, Bronchitis, Recurrent, COPD, Pneumonia, Recurrent, Pulmonary Fibrosis, SOB, Other (See Below) Other Respiratory History: Asthma as a child with secondary COPD and pulmonary fibrosis likely secondary to tobacco abuse. O2 dependent COPD currently used on a 34 L/m when necessary basis. Gastrointestinal History: Reports: None Genitourinary History: Reports: None CASE CONSULTANT History: Reports: Other CASE CONSULTANT History: Menopause at age 51. Full term without complications during pregnancies or deliveries Musculoskeletal History: Reports: Arthritis, Fracture, Neck Pain, Chronic, Osteoarthritis, Osteoporosis, Other (See Below) Other Musculoskeletal History: Old cervical dens fracture by MRI on 05/23/17. Right anterior cruciate ligament tear in August 2015; right-sided popliteal cyst. Neurological History: Reports: None Psychiatric History: Reports: Addiction, Anxiety, Depression, Other (See Below) Other Psychiatric History: Alcohol abuse as below, no current treatment for anxiety depression disorder Endocrine/Metabolic History: Reports: Osteopenia, Osteoporosis, Other (See Below ) Other Endocrine/Metabolic History: Hypoalbuminemia Hematologic History: Reports: Anemia, Iron Deficiency, Other (See Below) Other Hematologic History: Thrombocytopenia. Macrocytosis possibly secondary to alcohol use with current thiamine therapy. Immunologic History: Reports: None Oncologic (Cancer) History: Reports: Other (See Below) Other Oncologic History: Multiple myeloma. Dermatologic History: Reports: None - Infectious Disease History Infectious Disease History: Reports: Mononucleosis - Past Surgical History Head Surgeries/Procedures: Reports: None HEENT Surgical History: Reports: Adenoidectomy, Oral Surgery, Tonsillectomy, Other (See Below) Other HEENT Surgeries/Procedures: Tonsillectomy and adenoidectomy at 5 years of age. [place] teeth extraction 4 at age 18. Additional teeth extractions. Cardiovascular Surgical History: Reports: None Respiratory Surgical History: Reports: None GI Surgical History: Reports: None Female Surgical History: Reports: None Endocrine Surgical History: Reports: None Neurological Surgical History: Reports: C-Spine, Spinal Fusion, Other (See Below ) Other Neurological Surgeries/Procedures: C1-C2 posterior spinal fusion by MRI with graft from right hip at age 23 and 24. Musculoskeletal Surgical History: Reports: None Oncologic Surgical History: Reports: None Dermatological Surgical History: Reports: None - Past Imaging History Past Imaging History: Reports: DEXA Scan (05/23/17.), MRI (MRI of the C-spine on 05/23/17. Right knee on 08/25/15), Ultrasound (Soft tissue right wrist ultrasound on 08/31/17) Social & Family History - Family History Family Medical History: Unobtainable HEENT: Reports: None Cardiac: Reports: CAD, AL, Other (See Below) Other Cardiac Family History: Paternal aunts x4 with history of AL with 2 of them dying in their 60s from a fatal AL, maternal aunt with fatal AL at age 77, maternal grandmother with fatal AL in her 60s Respiratory: Reports: COPD, Other (See Below) Other Respiratory Family Hisory: Mother with COPD GI: Reports: None : Reports: None OBGYN: Reports: None Musculoskeletal: Reports: None Neurological: Reports: None Psychiatric: Reports: Anxiety, Depression, Other (See Below) Other Psychiatric Family History: Almost all family members on both paternal and maternal sides have problems with anxiety depression disorder and alcohol abuse Endocrine/Metabolic: Reports: None Hematologic: Reports: None Immunologic: Reports: None Dermatologic: Reports: None Oncologic: Reports: Lung, Metastatic, Skin, Other (See Below) Other Oncologic Family History: Father with fatal metastatic skin cancer/ melanoma at age 73, maternal aunt with fatal lung cancer in her 60s with history of tobacco use - Tobacco Use Smoking Status *Q: Current Every Day Smoker Years of Tobacco use: 42 Packs/Tins Daily: 0.7 - Caffeine Use Caffeine Use: Reports: Coffee - Alcohol Use Days Per Week of Alcohol Use: 7 Number of Drinks Per Day: 6 Total Drinks Per Week: 42 - Recreational Drug Use Recreational Drug Use: No Drug Use in Last 12 Months: No - Living Situation & Occupation Living situation: Reports: (2011, 2 children), with Significant Other Occupation: Unemployed (Previously worked in the [employer] department at [employer] in [place]) ED ROS GENERAL - Review of Systems Review Of Systems: See Below Respiratory: Reports: Shortness of Breath Cardiovascular: Reports: No Symptoms GI/Abdominal: Reports: No Symptoms ED EXAM, GENERAL - Physical Exam Exam: See Below Exam Limited By: No Limitations General Appearance: Mild Distress Neck: Supple Respiratory/Chest: Decreased Breath Sounds (No wheezing) Cardiovascular: Regular Rate, Rhythm GI/Abdominal: Soft Course - Vital Signs Last Recorded V/S: Last Vital Signs Temp 36.9 C 02/13/19 22:25 Pulse 100 02/13/19 22:47 Resp 18 02/13/19 22:47 BP 114/81 02/13/19 22:47 Pulse Ox 94 L 02/13/19 22:47 - Orders/Labs/Meds Orders: Active Orders 24 hr Category Date Time Status Sodium Chloride 0.9% [Saline Flush] Med 02/13/19 22:50 Active 10 ml FLUSH ASDIRECTED PRN Medication Orders Sodium Chloride (Saline Flush) 10 ml FLUSH ASDIRECTED PRN PRN Reason: Keep Vein Open Last Admin: 02/13/19 22:52 Dose: 10 ml Meds: Medications Generic Name Dose Route Start Last Admin Trade Name Frealicia PRN Reason Stop Dose Admin Sodium Chloride 10 ml 02/13/19 22:50 02/13/19 22:52 Saline Flush FLUSH 10 ml ASDIRECTED PRN Administration Keep Vein Open Discontinued Medications Generic Name Dose Route Start Last Admin Trade Name Freq PRN Reason Stop Dose Admin Methylprednisolone Sodium 101 mls @ 100 mls/hr 02/13/19 22:46 02/13/19 22:54 Succinate 125 mg/ Sodium IV 02/13/19 23:50 Not Given Chloride ONETIME ONE Methylprednisolone Sodium Succinate 125 mg 02/13/19 22:50 02/13/19 22:53 Solu-Medrol IVPUSH 02/13/19 22:51 125 mg ONETIME ONE Administration - Re-Assessments/Exams Free Text/Narrative Re-Assessment/Exam: 02/13/19 23:02 Pt stable in ER Pt given Solu-medrol 125 mg IV in ER Departure - Departure Time of Disposition: 23:15 Disposition: Home, Self-Care 01 Clinical Impression: COPD exacerbation - Discharge Information *PRESCRIPTION DRUG MONITORING PROGRAM REVIEWED*: Not Applicable *COPY OF PRESCRIPTION DRUG MONITORING REPORT IN PATIENT JUAN: Not Applicable Instructions: Shortness of Breath, Adult, [id number] Referrals: Anna Melvin PA-C [Primary Care Provider] - Additional Instructions: Use oxygen and HHN as needed Follow up in clinic Return to ER if worse - My Orders Last 24 Hours: My Active Orders 02/13/19 22:50 Sodium Chloride 0.9% [Saline Flush] 10 ml FLUSH ASDIRECTED PRN - Assessment/Plan Last 24 Hours: My Active Orders 02/13/19 22:50 Sodium Chloride 0.9% [Saline Flush] 10 ml FLUSH ASDIRECTED PRN
[2019-02-13 23:07] VITALS: BP 113/68; PULSE 95
== END 2019-02-13 23:20 | disposition home or self-care (01) ==
LOC: LL.ED 22:24
DX: J44.1 Chronic obstructive pulmonary disease with (acute) exacerbation (principal); F17.210 Nicotine dependence, cigarettes, uncomplicated; Z79.899 Other long term (current) drug therapy; Z79.82 Long term (current) use of aspirin
CPT/HCPCS: 96374; 99284-25; J2930

== ENCOUNTER 2019-03-20 12:48 | Emergency (ER) | payer MEDICAID ==
[2019-03-20 13:03] VITALS: BP 132/88; PULSE 85
--- NOTE | 2019-03-20 13:13 | EDM.PDOC ---
ED HPI GENERAL MEDICAL PROBLEM - General Chief Complaint: Respiratory Problem Stated Complaint: "food stuck in throat" Time Seen by Provider: 03/20/19 13:02 Source of Information: Reports: Patient History Limitations: Reports: No Limitations - History of Present Illness INITIAL COMMENTS - FREE TEXT/NARRATIVE: Food (steak) stuck in pt's esophagus since last evening. Unable to swallow saliva. Able to breath without difficulty. Reports having intermittent bouts with blockage "for years" with fluids/food. Has not reported this to primary provider and admits she avoids doctors and clinics. Does receive treatment for COPD at [facility]. Denies being diagnosed with other health problems when asked. Review of chart shows multiple previous diagnoses. - Related Data Allergies Allergy/AdvReac Type Severity Reaction Status Date / Time No Known Allergies Allergy Verified 03/20/19 12:50 Home Meds: Home Meds Budesonide/Formoterol Fumarate [Symbicort 160-4.5 Mcg Inhaler] 1 puff IH DAILY 12/31/17 [History] Ipratropium/Albuterol Sulfate [Iprat-Albut 0.5-3(2.5) MG/3 ML] 3 ml NEB QID PRN 12/31/17 [History] Dextromethorphan/guaiFENesin [Mucinex DM ER 600-30 MG] 1 tab PO BID PRN tab.er 09/22/18 [Rx] Thiamine [Vitamin B-1] 100 mg PO DAILY #100 tablet 09/22/18 [Rx] Aspirin 81 mg PO DAILY 02/13/19 [History] Ferrous Sulfate [Iron] 325 mg PO MOTH 02/13/19 [History] Magnesium Oxide 400 mg PO DAILY 02/13/19 [History] Past Medical History HEENT History: Reports: Allergic Rhinitis, Other (See Below) Other HEENT History: Allergic rhinitis as a child currently nonproblematic Cardiovascular History: Reports: Arrhythmia, High Cholesterol, Other (See Below) Other Cardiovascular History: Repolarization changes versus borderline incomplete right bundle branch block Respiratory History: Reports: Asthma, Bronchitis, Recurrent, COPD, Pneumonia, Recurrent, Pulmonary Fibrosis, SOB, Other (See Below) Other Respiratory History: Asthma as a child with secondary COPD and pulmonary fibrosis likely secondary to tobacco abuse. O2 dependent COPD currently used on a 34 L/m when necessary basis. Gastrointestinal History: Reports: GERD, Other (See Below) (Presumed esophageal stricture/difficulty with food getting stuck when swallowing) Genitourinary History: Reports: None OCCUPATIONAL THERAPIST History: Reports: Other OCCUPATIONAL THERAPIST History: Menopause at age 51. Full term without complications during pregnancies or deliveries Musculoskeletal History: Reports: Arthritis, Fracture, Neck Pain, Chronic, Osteoarthritis, Osteoporosis, Other (See Below) Other Musculoskeletal History: Old cervical dens fracture by MRI on 05/23/17. Right anterior cruciate ligament tear in August 2015; right-sided popliteal cyst. Neurological History: Reports: None Psychiatric History: Reports: Addiction, Anxiety, Depression, Other (See Below) Other Psychiatric History: Alcohol abuse as below, no current treatment for anxiety depression disorder Endocrine/Metabolic History: Reports: Osteopenia, Osteoporosis, Other (See Below ) Other Endocrine/Metabolic History: Hypoalbuminemia Hematologic History: Reports: Anemia, Iron Deficiency, Other (See Below) Other Hematologic History: Thrombocytopenia. Macrocytosis possibly secondary to alcohol use with current thiamine therapy. Immunologic History: Reports: None Oncologic (Cancer) History: Reports: Other (See Below) Other Oncologic History: Multiple myeloma. Dermatologic History: Reports: None - Infectious Disease History Infectious Disease History: Reports: Mononucleosis - Past Surgical History Head Surgeries/Procedures: Reports: None HEENT Surgical History: Reports: Adenoidectomy, Oral Surgery, Tonsillectomy, Other (See Below) Other HEENT Surgeries/Procedures: Tonsillectomy and adenoidectomy at 5 years of age. [place] teeth extraction 4 at age 18. Additional teeth extractions. Cardiovascular Surgical History: Reports: None Respiratory Surgical History: Reports: None GI Surgical History: Reports: None Female Surgical History: Reports: None Endocrine Surgical History: Reports: None Neurological Surgical History: Reports: C-Spine, Spinal Fusion, Other (See Below ) Other Neurological Surgeries/Procedures: C1-C2 posterior spinal fusion by MRI with graft from right hip at age 23 and 24. Musculoskeletal Surgical History: Reports: None Oncologic Surgical History: Reports: None Dermatological Surgical History: Reports: None - Past Imaging History Past Imaging History: Reports: DEXA Scan (05/23/17.), MRI (MRI of the C-spine on 05/23/17. Right knee on 08/25/15), Ultrasound (Soft tissue right wrist ultrasound on 08/31/17) Social & Family History - Family History Family Medical History: Unobtainable HEENT: Reports: None Cardiac: Reports: CAD, DE, Other (See Below) Other Cardiac Family History: Paternal aunts x4 with history of DE with 2 of them dying in their 60s from a fatal DE, maternal aunt with fatal DE at age 77, maternal grandmother with fatal DE in her 60s Respiratory: Reports: COPD, Other (See Below) Other Respiratory Family Hisory: Mother with COPD GI: Reports: None : Reports: None OBGYN: Reports: None Musculoskeletal: Reports: None Neurological: Reports: None Psychiatric: Reports: Anxiety, Depression, Other (See Below) Other Psychiatric Family History: Almost all family members on both paternal and maternal sides have problems with anxiety depression disorder and alcohol abuse Endocrine/Metabolic: Reports: None Hematologic: Reports: None Immunologic: Reports: None Dermatologic: Reports: None Oncologic: Reports: Lung, Metastatic, Skin, Other (See Below) Other Oncologic Family History: Father with fatal metastatic skin cancer/ melanoma at age 73, maternal aunt with fatal lung cancer in her 60s with history of tobacco use - Tobacco Use Smoking Status *Q: Current Every Day Smoker - Caffeine Use Caffeine Use: Reports: Coffee - Living Situation & Occupation Living situation: Reports: (2012, 2 children), with Significant Other Occupation: Unemployed (Previously worked in the [employer] department at [employer] in [place]) ED ROS GENERAL - Review of Systems Review Of Systems: See Below Constitutional: Denies: Fever, Chills HEENT: Reports: Other (food stuck in esophagus) Respiratory: Denies: Shortness of Breath Cardiovascular: Denies: Chest Pain GI/Abdominal: Reports: Difficulty Swallowing. Denies: Abdominal Pain, Distension, Vomiting Neurological: Reports: No Symptoms Psychiatric: Reports: No Symptoms ED EXAM, GENERAL - Physical Exam Exam: See Below Exam Limited By: No Limitations General Appearance: Alert, No Apparent Distress, Thin Eye Exam: Bilateral Eye: EOMI, PERRL Nose: No: Nasal Deformity, Nasal Swelling, Nasal Drainage Throat/Mouth: Normal Lips, Normal Voice, No Airway Compromise Head: Atraumatic, Normocephalic Neck: Supple Respiratory/Chest: No Respiratory Distress, No Accessory Muscle Use, Rhonchi ( scattered). No: Rales, Wheezing, Stridor, Accessory Muscle Use, Retractions Cardiovascular: Regular Rate, Rhythm, No Murmur GI/Abdominal: Soft, Non-Tender (Female) Exam: Deferred Rectal (Female) Exam: Deferred Back Exam: No: Muscle Spasm Extremities: Normal Range of Motion, Normal Capillary Refill Neurological: Alert, Oriented, Normal Cognition, Normal Gait Psychiatric: Normal Affect, Normal Mood Skin Exam: Warm, Dry, Normal Color Course - Vital Signs Last Recorded V/S: Last Vital Signs Temp 36.6 C 03/20/19 12:57 Pulse 85 03/20/19 12:57 Resp 20 03/20/19 12:57 BP 132/88 03/20/19 12:57 Pulse Ox 100 03/20/19 12:57 - Orders/Labs/Meds Labs: Laboratory Tests 03/20/19 03/20/19 03/20/19 Range/Units 13:05 13:05 13:05 WBC 9.5 (4.0-10.2) K/uL RBC 4.43 (3.77-5.09) M/uL Hgb 14.8 (11.7-15.5) g/dL Hct 44.2 (34.0-46.0) % MCV 99.8 H (84.0-98.0) fL MCH 33.4 H (28.2-33.3) pg MCHC 33.5 (31.7-36.0) g/dL RDW 12.7 (11.2-14.1) % Plt Count 204 (150-350) K/uL Neut % (Auto) 63.5 (45.0-80.0) % Lymph % (Auto) 27.2 (10.0-50.0) % [place] % (Auto) 7.2 (2.0-14.0) % Eos % (Auto) 1.7 (0.0-5.0) % Baso % (Auto) 0.4 (0.0-2.0) % Neut # (Auto) 6.04 (1.40-7.00) K/uL Lymph # (Auto) 2.59 (0.50-3.50) K/uL [place] # (Auto) 0.68 (0.00-1.00) K/uL Eos # (Auto) 0.16 (0.00-0.50) K/uL Baso # (Auto) 0.04 (0.00-0.20) K/uL Sodium 144 (136-145) mmol/L Potassium 4.0 (3.5-5.1) mmol/L Chloride 105 (98-107) mmol/L Carbon Dioxide 29.0 (21.0-32.0) mmol/L BUN 20 H (7-18) mg/dL Creatinine 0.72 (0.51-1.17) mg/dL Est Cr Clr Drug Dosing TNP Estimated GFR (MDRD) > 60 mL/min Glucose 98 (74-106) mg/dL Calcium 9.2 (8.5-10.1) mg/dL Magnesium 2.0 (1.8-2.4) mg/dL Total Bilirubin 0.5 (0.2-1.0) mg/dL AST 36 (15-37) U/L ALT 54 (12-78) U/L Alkaline Phosphatase 76 (46-116) IU/L Total Protein 8.0 (6.4-8.2) g/dL Albumin 4.1 (3.4-5.0) g/dL Ethyl Alcohol 0.002 (0.000-0.080) g/dL - Re-Assessments/Exams Free Text/Narrative Re-Assessment/Exam: Baseline labs requested. /Surgery at [place] contacted to see if he was willing to perform endoscopy on patient and remove food bolus. He is willing to perform the procedure and accepted patient. Report given to Alissa from Surgery. Will fax patient's EMR record once all lab results available. Pt will in meantime start drive to [place] via private vehicle. She has lyft driver. Departure - Departure Time of Disposition: 13:11 Disposition: DC/Tfer to Acute Hospital 02 Condition: Good Clinical Impression: Esophageal obstruction due to food impaction - Discharge Information *PRESCRIPTION DRUG MONITORING PROGRAM REVIEWED*: Not Applicable *COPY OF PRESCRIPTION DRUG MONITORING REPORT IN PATIENT JUAN: Not Applicable Referrals: Anna Melvin PA-C [Primary Care Provider] - Forms: ED Department Discharge Additional Instructions: Drive directly to [facility] in [place]. Report to front desk monitor. Tell them is expecting you and you are to be taken care of by surgery personnel. Do not attempt to eat/drink anything before they see you and take care of the obstruction. Sepsis Event Note - Evaluation Sepsis Screening Result: No Definite Risk - Focused Exam Vital Signs: Vital Signs Temp Pulse Resp BP Pulse Ox 03/20/19 12:57 36.6 C 85 20 132/88 100 Date Exam was Performed: 03/20/19 Time Exam was Performed: 13:47
[2019-03-20 13:32] LABS: CHLORIDE,CL 105 mmol/L (98-107); SODIUM,NA 144 mmol/L (136-145)
== END 2019-03-20 13:15 | disposition critical access hospital (66) ==
LOC: LL.ED 12:48
DX: T18.128A Food in esophagus causing other injury, initial encounter (principal); J44.9 Chronic obstructive pulmonary disease, unspecified; M19.90 Unspecified osteoarthritis, unspecified site; D64.9 Anemia, unspecified; F17.200 Nicotine dependence, unspecified, uncomplicated; Z79.82 Long term (current) use of aspirin; Z79.899 Other long term (current) drug therapy
CPT/HCPCS: 36415; 80053; 83735; 85025; 99284; G0480

== ENCOUNTER 2019-10-01 18:34 | Emergency (ER) | payer MEDICAID ==
[~2019-10-01 18:34] MED LIST: Albuterol/Ipratropium 3.0-0.5 MG/3 ML Neb Soln INH ONE; Etomidate 2 MG/ML 10 ML SDV IV ONE; Midazolam 1 MG/ML 2 ML SDV IV ONE; Rocuronium 100 MG/10 ML MDV IV ONE; Sodium Chloride 0.9% 1,000 ML IV SCH; fentaNYL 100 MCG/2 ML SDV IV ONE
[2019-10-01 18:40] LABS: O2 DELIVERY DEVICE RESUSCITATION BAG; O2 FLOW RATE 15 L/min
[2019-10-01] MEDS ORDERED: methylPREDNISolone Sodium Succinate 125 MG/2 ML SDV IVPUSH ONE (18:40)
[2019-10-01 18:42] LABS: O2 SATURATION ARTERIAL 97 % (95-98); PCO2 ARTERIAL 124 mmHG (35-45); PO2 ARTERIAL 179 mmHG (80-105)
[2019-10-01 18:43] LABS: BASE EXCESS ARTERIAL -14 mmol/L (-2-3); BICARBONATE,ARTERIAL 20.5 mmol/L (22-26)
[2019-10-01 18:44] LABS: CHLORIDE,CL 97 mmol/L (98-107); SODIUM,NA 134 mmol/L (136-145)
[2019-10-01] MEDS ORDERED: Albuterol/Ipratropium 3.0-0.5 MG/3 ML Neb Soln ONE (19:00)
[2019-10-01] MEDS ORDERED: Midazolam 1 MG/ML 2 ML SDV ONE (19:10)
[2019-10-01 19:25] LABS: EDDP,URINE SCREEN NEGATIVE (NEGATIVE)
[2019-10-01 19:26] LABS: BARBITURATE SCREEN,URINE NEGATIVE (NEGATIVE); BENZODIAZEPINES SCREEN,URINE POSITIVE (NEGATIVE); TCA SCREEN,URINE NEGATIVE (NEGATIVE); THC SCREEN,URINE 50 NG/ML NEGATIVE (NEGATIVE)
--- NOTE | 2019-10-01 20:00 | EDM.PDOC ---
ED HPI GENERAL MEDICAL PROBLEM - General Chief Complaint: Respiratory Problem Stated Complaint: SOB Time Seen by Provider: 10/01/19 18:40 Source of Information: Reports: EMS History Limitations: Reports: Respiratory Distress - History of Present Illness INITIAL COMMENTS - FREE TEXT/NARRATIVE: Patient brought in by EMS for complaint of acute SOB. Per report she had been with a friend when she suddenly complained of difficulty breathing. Friend called 911. No report from friend that patient had any earlier problems such as respiratory illness/fever or other illness. Patient has been here for evaluation multiple times in past for SOB/COPD related issues. She is obtunded at time of arrival, EMS assisting her breathing with BVM at 15L O2 - Related Data Allergies Allergy/AdvReac Type Severity Reaction Status Date / Time No Known Allergies Allergy Verified 03/20/19 12:50 Home Meds: Home Meds Budesonide/Formoterol Fumarate [Symbicort 160-4.5 Mcg Inhaler] 1 puff IH DAILY 12/31/17 [History] Ipratropium/Albuterol Sulfate [Iprat-Albut 0.5-3(2.5) MG/3 ML] 3 ml NEB QID PRN 12/31/17 [History] Dextromethorphan/guaiFENesin [Mucinex DM ER 600-30 MG] 1 tab PO BID PRN tab.er 09/22/18 [Rx] Thiamine [Vitamin B-1] 100 mg PO DAILY #100 tablet 09/22/18 [Rx] Aspirin 81 mg PO DAILY 02/13/19 [History] Ferrous Sulfate [Iron] 325 mg PO MOTH 02/13/19 [History] Magnesium Oxide 400 mg PO DAILY 02/13/19 [History] Past Medical History HEENT History: Reports: Allergic Rhinitis, Other (See Below) Other HEENT History: Allergic rhinitis as a child currently nonproblematic Cardiovascular History: Reports: Arrhythmia, High Cholesterol, Other (See Below) Other Cardiovascular History: Repolarization changes versus borderline incomplete right bundle branch block Respiratory History: Reports: Asthma, Bronchitis, Recurrent, COPD, Pneumonia, Recurrent, Pulmonary Fibrosis, SOB, Other (See Below) Other Respiratory History: Asthma as a child with secondary COPD and pulmonary fibrosis likely secondary to tobacco abuse. O2 dependent COPD currently used on a 34 L/m when necessary basis. 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 Full term without complications during pregnancies or deliveries Musculoskeletal History: Reports: Arthritis, Fracture, Neck Pain, Chronic, Osteoarthritis, Osteoporosis, Other (See Below) Other Musculoskeletal History: Old cervical dens fracture by MRI on 05/23/17. Right anterior cruciate ligament tear in August 2015; right-sided popliteal cyst. Neurological History: Reports: None Psychiatric History: Reports: Addiction, Anxiety, Depression, Other (See Below) Other Psychiatric History: Alcohol abuse as below, no current treatment for anxiety depression disorder Endocrine/Metabolic History: Reports: Osteopenia, Osteoporosis, Other (See Below) Other Endocrine/Metabolic History: Hypoalbuminemia Hematologic History: Reports: Anemia, Iron Deficiency, Other (See Below) Other Hematologic History: Thrombocytopenia. Macrocytosis possibly secondary to alcohol use with current thiamine therapy. Immunologic History: Reports: None Oncologic (Cancer) History: Reports: Other (See Below) Other Oncologic History: Multiple myeloma. Dermatologic History: Reports: None - Infectious Disease History Infectious Disease History: Reports: Mononucleosis - Past Surgical History Head Surgeries/Procedures: Reports: None HEENT Surgical History: Reports: Adenoidectomy, Oral Surgery, Tonsillectomy, Other (See Below) Other HEENT Surgeries/Procedures: Tonsillectomy and adenoidectomy at 5 years of age. [place] teeth extraction 4 at age 18. Additional teeth extractions. Cardiovascular Surgical History: Reports: None Respiratory Surgical History: Reports: None GI Surgical History: Reports: None Female Surgical History: Reports: None Endocrine Surgical History: Reports: None Neurological Surgical History: Reports: C-Spine, Spinal Fusion, Other (See Below) Other Neurological Surgeries/Procedures: C1-C2 posterior spinal fusion by MRI with graft from right hip at age 23 and 24. Musculoskeletal Surgical History: Reports: None Oncologic Surgical History: Reports: None Dermatological Surgical History: Reports: None - Past Imaging History Past Imaging History: Reports: DEXA Scan (05/23/17.), MRI (MRI of the C-spine on 05/23/17. Right knee on 08/25/15), Ultrasound (Soft tissue right wrist ultrasound on 08/31/17) Social & Family History - Family History Family Medical History: Unobtainable HEENT: Reports: None Cardiac: Reports: CAD, VT, Other (See Below) Other Cardiac Family History: Paternal aunts x4 with history of VT with 2 of them dying in their 60s from a fatal VT, maternal aunt with fatal VT at age 77, maternal grandmother with fatal VT in her 60s Respiratory: Reports: COPD, Other (See Below) Other Respiratory Family Hisory: Mother with COPD GI: Reports: None : Reports: None OBGYN: Reports: None Musculoskeletal: Reports: None Neurological: Reports: None Psychiatric: Reports: Anxiety, Depression, Other (See Below) Other Psychiatric Family History: Almost all family members on both paternal and maternal sides have problems with anxiety depression disorder and alcohol abuse Endocrine/Metabolic: Reports: None Hematologic: Reports: None Immunologic: Reports: None Dermatologic: Reports: None Oncologic: Reports: Lung, Metastatic, Skin, Other (See Below) Other Oncologic Family History: Father with fatal metastatic skin cancer/melan lisa at age 73, maternal aunt with fatal lung cancer in her 60s with history of tobacco use - Caffeine Use Caffeine Use: Reports: Coffee - Living Situation & Occupation Living situation: Reports: (2012, 2 children), with Significant Other Occupation: Unemployed (Previously worked in the [employer] department at [employer] in [place]) ED ROS GENERAL - Review of Systems Review Of Systems: Unable To Obtain Reason Not Obtained: obtunded ED EXAM, GENERAL - Physical Exam Exam: See Below Exam Limited By: Respiratory Distress General Appearance: Thin (no response to voice. Does try to keep eyelids shut during exam. Eventually did start to reach towards mask/make some spontaneous movments. ) Eye Exam: Bilateral Eye: Other (Pupils equal, nonreactive 5mm) Ears: Normal External Exam Nose: No: Nasal Deformity, Nasal Swelling, Nasal Drainage Throat/Mouth: Normal Lips Head: Atraumatic, Normocephalic Neck: Supple Respiratory/Chest: Wheezing (significant wheezing bilaterally, minimal air movement. ), Accessory Muscle Use, Retractions Cardiovascular: Regular Rate, Rhythm, No Murmur Peripheral Pulses: 2+: Brachial (L), Brachial (R), Dorsalis Pedis (L), Dorsalis Pedis (R) GI/Abdominal: Soft, No Distention (Female) Exam: Deferred Rectal (Female) Exam: Deferred Extremities: No Pedal Edema, Normal Capillary Refill Neurological: Unresponsive Skin Exam: Normal Color, Diaphoretic Course - Orders/Labs/Meds Orders: Active Orders 24 hr Category Date Time Status Chest 1V Frontal [CR] Stat Exams 10/01/19 18:43 Ordered Labs: Laboratory Tests 10/01/19 10/01/19 10/01/19 Range/Units 18:20 18:20 18:20 WBC 13.8 H (4.0-10.2) K/uL RBC 4.05 (3.77-5.09) M/uL Hgb 13.3 D (11.7-15.5) g/dL Hct 41.9 (34.0-46.0) % MCV 103.5 H D (84.0-98.0) fL MCH 32.8 (28.2-33.3) pg MCHC 31.7 (31.7-36.0) g/dL RDW 12.6 (11.2-14.1) % Plt Count 272 (150-350) K/uL Neut % (Auto) 40.5 L (45.0-80.0) % Lymph % (Auto) 48.2 (10.0-50.0) % Whiteside % (Auto) 7.4 (2.0-14.0) % Eos % (Auto) 3.5 (0.0-5.0) % Baso % (Auto) 0.4 (0.0-2.0) % Neut # (Auto) 5.60 (1.40-7.00) K/uL Lymph # (Auto) 6.66 H (0.50-3.50) K/uL Whiteside # (Auto) 1.02 H (0.00-1.00) K/uL Eos # (Auto) 0.48 (0.00-0.50) K/uL Baso # (Auto) 0.06 (0.00-0.20) K/uL D-Dimer, Quantitative 476 H (0-400) ng/mL ABG pH (7.35-7.45) ABG pCO2 (35-45) mmHG ABG pO2 (80-105) mmHG ABG HCO3 (22-26) mmol/L ABG Total CO2 (23-27) mmol/L ABG O2 Saturation (95-98) % ABG Base Excess (-2-3) mmol/L O2 Delivery Device Oxygen Flow Rate L/min Sodium 134 L D (136-145) mmol/L Potassium 3.1 L (3.5-5.1) mmol/L Chloride 97 L (98-107) mmol/L Carbon Dioxide 19.7 L (21.0-32.0) mmol/L BUN 17 (7-18) mg/dL Creatinine 0.95 (0.51-1.17) mg/dL Est Cr Clr Drug Dosing TNP Estimated GFR (MDRD) > 60 mL/min Glucose 380 H (74-106) mg/dL Lactic Acid (0.4-2.0) mmol/L Calcium 8.2 L (8.5-10.1) mg/dL Magnesium 2.2 (1.8-2.4) mg/dL Total Bilirubin 0.4 (0.2-1.0) mg/dL AST 86 H (15-37) U/L ALT 55 (12-78) U/L Alkaline Phosphatase 112 (46-116) IU/L Troponin I 0.017 (0.000-0.056) ng/mL Total Protein 7.1 (6.4-8.2) g/dL Albumin 3.5 (3.4-5.0) g/dL Specimen Type Urine Color Urine Appearance Urine pH (5.0-9.0) Ur Specific Hudd[place] (1.005-1.030) Urine Protein (NEGATIVE) mg/dL Urine Glucose (UA) (NEGATIVE) mg/dL Urine Ketones (NEGATIVE) mg/dL Urine Occult Blood (NEGATIVE) Urine Nitrite (NEGATIVE) Urine Bilirubin (NEGATIVE) Urine Urobilinogen (0.2-1.0) E.U./dL Ur Leukocyte Esterase (NEGATIVE) Urine RBC /HPF Urine WBC /HPF Ur Epithelial Cells /LPF Urine Bacteria (NONE TO FEW) /HPF Urine Opiates Screen (NEGATIVE) Ur Buprenorphine Scrn (NEGATIVE) Ur Oxycodone Screen (NEGATIVE) Ur EDDP (Meth Metab) (NEGATIVE) Ur Barbiturates Screen (NEGATIVE) Ur Tricyclics Screen (NEGATIVE) Ur Amphetamine Screen (NEGATIVE) U Methamphetamines Scrn (NEGATIVE) Urine MDMA Screen (NEGATIVE) U Benzodiazepines Scrn (NEGATIVE) U Cocaine Metab Screen (NEGATIVE) U Marijuana (THC) Screen (NEGATIVE) 10/01/19 10/01/19 10/01/19 Range/Units 18:20 18:20 19:00 WBC (4.0-10.2) K/uL RBC (3.77-5.09) M/uL Hgb (11.7-15.5) g/dL Hct (34.0-46.0) % MCV (84.0-98.0) fL MCH (28.2-33.3) pg MCHC (31.7-36.0) g/dL RDW (11.2-14.1) % Plt Count (150-350) K/uL Neut % (Auto) (45.0-80.0) % Lymph % (Auto) (10.0-50.0) % Whiteside % (Auto) (2.0-14.0) % Eos % (Auto) (0.0-5.0) % Baso % (Auto) (0.0-2.0) % Neut # (Auto) (1.40-7.00) K/uL Lymph # (Auto) (0.50-3.50) K/uL Whiteside # (Auto) (0.00-1.00) K/uL Eos # (Auto) (0.00-0.50) K/uL Baso # (Auto) (0.00-0.20) K/uL D-Dimer, Quantitative (0-400) ng/mL ABG pH 6.83 L* (7.35-7.45) ABG pCO2 124 H* (35-45) mmHG ABG pO2 179 H (80-105) mmHG ABG HCO3 20.5 L (22-26) mmol/L ABG Total CO2 24 (23-27) mmol/L ABG O2 Saturation 97 (95-98) % ABG Base Excess -14 L (-2-3) mmol/L O2 Delivery Device Resuscitation bag Oxygen Flow Rate 15 L/min Sodium (136-145) mmol/L Potassium (3.5-5.1) mmol/L Chloride (98-107) mmol/L Carbon Dioxide (21.0-32.0) mmol/L BUN (7-18) mg/dL Creatinine (0.51-1.17) mg/dL Est Cr Clr Drug Dosing Estimated GFR (MDRD) mL/min Glucose (74-106) mg/dL Lactic Acid 8.4 H (0.4-2.0) mmol/L Calcium (8.5-10.1) mg/dL Magnesium (1.8-2.4) mg/dL Total Bilirubin (0.2-1.0) mg/dL AST (15-37) U/L ALT (12-78) U/L Alkaline Phosphatase (46-116) IU/L Troponin I (0.000-0.056) ng/mL Total Protein (6.4-8.2) g/dL Albumin (3.4-5.0) g/dL Specimen Type Urincath Urine Color Yellow Urine Appearance Slightly cloudy Urine pH 6.0 (5.0-9.0) Ur Specific [place] 1.025 (1.005-1.030) Urine Protein 100 H (NEGATIVE) mg/dL Urine Glucose (UA) 500 H (NEGATIVE) mg/dL Urine Ketones Negative (NEGATIVE) mg/dL Urine Occult Blood Moderate H (NEGATIVE) Urine Nitrite Negative (NEGATIVE) Urine Bilirubin Negative (NEGATIVE) Urine Urobilinogen 0.2 (0.2-1.0) E.U./dL Ur Leukocyte Esterase Negative (NEGATIVE) Urine RBC 10-20 H /HPF Urine WBC 10-20 H /HPF Ur Epithelial Cells Few /LPF Urine Bacteria Few (NONE TO FEW) /HPF Urine Opiates Screen (NEGATIVE) Ur Buprenorphine Scrn (NEGATIVE) Ur Oxycodone Screen (NEGATIVE) Ur EDDP (Meth Metab) (NEGATIVE) Ur Barbiturates Screen (NEGATIVE) Ur Tricyclics Screen (NEGATIVE) Ur Amphetamine Screen (NEGATIVE) U Methamphetamines Scrn (NEGATIVE) Urine MDMA Screen (NEGATIVE) U Benzodiazepines Scrn (NEGATIVE) U Cocaine Metab Screen (NEGATIVE) U Marijuana (THC) Screen (NEGATIVE) 10/01/19 Range/Units 19:00 WBC (4.0-10.2) K/uL RBC (3.77-5.09) M/uL Hgb (11.7-15.5) g/dL Hct (34.0-46.0) % MCV (84.0-98.0) fL MCH (28.2-33.3) pg MCHC (31.7-36.0) g/dL RDW (11.2-14.1) % Plt Count (150-350) K/uL Neut % (Auto) (45.0-80.0) % Lymph % (Auto) (10.0-50.0) % Whiteside % (Auto) (2.0-14.0) % Eos % (Auto) (0.0-5.0) % Baso % (Auto) (0.0-2.0) % Neut # (Auto) (1.40-7.00) K/uL Lymph # (Auto) (0.50-3.50) K/uL Whiteside # (Auto) (0.00-1.00) K/uL Eos # (Auto) (0.00-0.50) K/uL Baso # (Auto) (0.00-0.20) K/uL D-Dimer, Quantitative (0-400) ng/mL ABG pH (7.35-7.45) ABG pCO2 (35-45) mmHG ABG pO2 (80-105) mmHG ABG HCO3 (22-26) mmol/L ABG Total CO2 (23-27) mmol/L ABG O2 Saturation (95-98) % ABG Base Excess (-2-3) mmol/L O2 Delivery Device Oxygen Flow Rate L/min Sodium (136-145) mmol/L Potassium (3.5-5.1) mmol/L Chloride (98-107) mmol/L Carbon Dioxide (21.0-32.0) mmol/L BUN (7-18) mg/dL Creatinine (0.51-1.17) mg/dL Est Cr Clr Drug Dosing Estimated GFR (MDRD) mL/min Glucose (74-106) mg/dL Lactic Acid (0.4-2.0) mmol/L Calcium (8.5-10.1) mg/dL Magnesium (1.8-2.4) mg/dL Total Bilirubin (0.2-1.0) mg/dL AST (15-37) U/L ALT (12-78) U/L Alkaline Phosphatase (46-116) IU/L Troponin I (0.000-0.056) ng/mL Total Protein (6.4-8.2) g/dL Albumin (3.4-5.0) g/dL Specimen Type Urine Color Urine Appearance Urine pH (5.0-9.0) Ur Specific [place] (1.005-1.030) Urine Protein (NEGATIVE) mg/dL Urine Glucose (UA) (NEGATIVE) mg/dL Urine Ketones (NEGATIVE) mg/dL Urine Occult Blood (NEGATIVE) Urine Nitrite (NEGATIVE) Urine Bilirubin (NEGATIVE) Urine Urobilinogen (0.2-1.0) E.U./dL Ur Leukocyte Esterase (NEGATIVE) Urine RBC /HPF Urine WBC /HPF Ur Epithelial Cells /LPF Urine Bacteria (NONE TO FEW) /HPF Urine Opiates Screen Negative (NEGATIVE) Ur Buprenorphine Scrn Negative (NEGATIVE) Ur Oxycodone Screen Negative (NEGATIVE) Ur EDDP (Meth Metab) Negative (NEGATIVE) Ur Barbiturates Screen Negative (NEGATIVE) Ur Tricyclics Screen Negative (NEGATIVE) Ur Amphetamine Screen Positive H (NEGATIVE) U Methamphetamines Scrn Positive H (NEGATIVE) Urine MDMA Screen Negative (NEGATIVE) U Benzodiazepines Scrn Positive H (NEGATIVE) U Cocaine Metab Screen Negative (NEGATIVE) U Marijuana (THC) Screen Negative (NEGATIVE) Meds: Medications Discontinued Medications Generic Name Dose Route Start Last Admin Trade Name Freq PRN Reason Stop Dose Admin Albuterol/Ipratropium Confirm 10/01/19 19:00 Duoneb 3.0-0.5 Mg/3 Ml Administered 10/01/19 19:01 Dose 3 ml .ROUTE .STK-MED ONE Methylprednisolone Sodium Succinate 125 mg 10/01/19 18:40 Solu-Medrol IVPUSH 10/01/19 18:41 ONETIME ONE Midazolam HCl Confirm 10/01/19 19:10 Versed 1 Mg/Ml Administered 10/01/19 19:11 Dose 2 mg .ROUTE .STK-MED ONE - Re-Assessments/Exams Free Text/Narrative Re-Assessment/Exam: [facility] brought online. Familia Harden MD assisted in patient's care. Patient continued to receive BVM at 15L. Oxygenation approached 100%. Suspected acute respiratory distress/failure secondary to patient's COPD. Preparations for intubation made. Labs drawn. Second IV site established. IV fluid bolus initiated. ET tube placed on second attempt. Placement ultimately verified by xray. No acute changes suggestive of pneumothorax or pneumonia noted on film. BP elevated by otherwise vital signs stable. Transfer to [place] [facility] initiated and [facility] contacted for transport. Fentanyl and Versed used for sedation until Air Med available and she was changed to Propofol drip. Labs showed elevated WBC, + Meth and Benzos, mildly elevated DDimer, mild decreased K, elevated glucose and AST as well as lactic acid of 8.4 Troponin negative ABG showed pH of 6.83 which was felt to mostly respiratory in nature. PCO@ elevated and o2 sats 97%. HCO3 20.5 No bicarb given after discussion with . Patient given Solumedrol 125mg and DuoNeb. [facility] arrived and she was transferred to [place] ED, Dr.Glynn kimberly DONAHUE. Vital signs remained stable for rest of stay prior to transfer Departure - Departure Time of Disposition: 19:00 Disposition: DC/Tfer to [facility] 02 Condition: Critical Clinical Impression: COPD exacerbation, Methamphetamine abuse Acute respiratory failure Qualifiers: Respiratory failure complication: hypoxia and hypercapnia Qualified Code(s): J96.01 - Acute respiratory failure with hypoxia; J96.02 - Acute respiratory failure with hypercapnia - Discharge Information *PRESCRIPTION DRUG MONITORING PROGRAM REVIEWED*: Not Applicable *COPY OF PRESCRIPTION DRUG MONITORING REPORT IN PATIENT JUAN: Not Applicable - My Orders Last 24 Hours: My Active Orders 10/01/19 18:43 Chest 1V Frontal [CR] Stat - Assessment/Plan Last 24 Hours: My Active Orders 10/01/19 18:43 Chest 1V Frontal [CR] Stat
== END 2019-10-01 19:20 ==
LOC: LL.ED 18:34
DX: J96.01 Acute respiratory failure with hypoxia (principal); J96.02 Acute respiratory failure with hypercapnia; J44.1 Chronic obstructive pulmonary disease with (acute) exacerbation; F15.10 Other stimulant abuse, uncomplicated; D64.9 Anemia, unspecified; Z79.82 Long term (current) use of aspirin; Z79.899 Other long term (current) drug therapy
CPT/HCPCS: 31500; 36415; 36600; 71045; 80053; 80305-QW; 81001; 82803; 83605; 83735; 84484; 85025; 85379; 96374; 96375; 99285-25; J2250; J2930; J3010; J3490; J7030; J7620-GY

== ENCOUNTER 2020-12-07 20:29 | Observation (INO) | payer MEDICAID ==
--- NOTE | 2020-12-07 20:37 | EDM.PDOC ---
ED HPI GENERAL MEDICAL PROBLEM - General Chief Complaint: General Stated Complaint: SOB Time Seen by Provider: 12/07/20 20:30 Source of Information: Reports: Patient, Family History Limitations: Reports: Respiratory Distress - History of Present Illness INITIAL COMMENTS - FREE TEXT/NARRATIVE: Patient presents to the Ed for sob, chest pain with coughing, sputum production, shortness of breath, body aches and loss of smell and taste. Patient has COPD, has home oxygen but lost her pulse oximeter and does not wear her oxygen at all times. She states she lost her smell and taste over the last month. Has been coughing more than normal with white sputum production, fevers and pleuritic chest pain for the last 2 weeks. HAs not had covid, has not had the vaccination and has continued to smoke. Has been using her nebulizers but they are not helping. Decided to drive to the ED tonight as in POV to [place] as she did not want to go to [place]. Did not bring her O2 with. feeling light headed, sob, slightly confused per her significant other. Has been eating and drinking. 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, Breathing Treatments, Home Treatments Thoracic Pain Score (Numeric/FACES): 8 - Related Data Allergies Allergy/AdvReac Type Severity Reaction Status Date / Time No Known Allergies Allergy Verified 03/20/19 12:50 Home Meds: Home Meds Budesonide/Formoterol Fumarate [Symbicort 160-4.5 Mcg Inhaler] 1 puff IH DAILY 12/31/17 [History] Ipratropium/Albuterol Sulfate [Iprat-Albut 0.5-3(2.5) MG/3 ML] 3 ml NEB QID PRN 12/31/17 [History] Dextromethorphan/guaiFENesin [Mucinex DM ER 600-30 MG] 1 tab PO BID PRN tab.er 09/22/18 [Rx] Thiamine [Vitamin B-1] 100 mg PO DAILY #100 tablet 09/22/18 [Rx] Aspirin 81 mg PO DAILY 02/13/19 [History] Ferrous Sulfate [Iron] 325 mg PO MOTH 02/13/19 [History] Magnesium Oxide 400 mg PO DAILY 02/13/19 [History] Past Medical History HEENT History: Reports: Allergic Rhinitis, Other (See Below) Other HEENT History: Allergic rhinitis as a child currently nonproblematic Cardiovascular History: Reports: Arrhythmia, High Cholesterol, Other (See Below) Other Cardiovascular History: Repolarization changes versus borderline incomplete right bundle branch block Respiratory History: Reports: Asthma, Bronchitis, Recurrent, COPD, Pneumonia, Recurrent, Pulmonary Fibrosis, SOB, Other (See Below) Other Respiratory History: Asthma as a child with secondary COPD and pulmonary fibrosis likely secondary to tobacco abuse. O2 dependent COPD currently used on a 34 L/m when necessary basis. Gastrointestinal History: Reports: GERD, Other (See Below) (Presumed esophageal stricture/difficulty with food getting stuck when swallowing) Genitourinary History: Reports: None COPYRIGHT CLERK History: Reports: Other COPYRIGHT CLERK History: Menopause at age 51. Full term without complications during pregnancies or deliveries Musculoskeletal History: Reports: Arthritis, Fracture, Neck Pain, Chronic, Osteoarthritis, Osteoporosis, Other (See Below) Other Musculoskeletal History: Old cervical dens fracture by MRI on 05/23/17. Right anterior cruciate ligament tear in August 2015; right-sided popliteal cyst. Neurological History: Reports: None Psychiatric History: Reports: Addiction, Anxiety, Depression, Other (See Below) Other Psychiatric History: Alcohol abuse as below, no current treatment for anxiety depression disorder Endocrine/Metabolic History: Reports: Osteopenia, Osteoporosis, Other (See Below) Other Endocrine/Metabolic History: Hypoalbuminemia Hematologic History: Reports: Anemia, Iron Deficiency, Other (See Below) Other Hematologic History: Thrombocytopenia. Macrocytosis possibly secondary to alcohol use with current thiamine therapy. Immunologic History: Reports: None Oncologic (Cancer) History: Reports: Other (See Below) Other Oncologic History: Multiple myeloma. Dermatologic History: Reports: None - Infectious Disease History Infectious Disease History: Reports: Mononucleosis - Past Surgical History Head Surgeries/Procedures: Reports: None HEENT Surgical History: Reports: Adenoidectomy, Oral Surgery, Tonsillectomy, Other (See Below) Other HEENT Surgeries/Procedures: Tonsillectomy and adenoidectomy at 5 years of age. [place] teeth extraction 4 at age 18. Additional teeth extractions. Cardiovascular Surgical History: Reports: None Respiratory Surgical History: Reports: None GI Surgical History: Reports: None Female Surgical History: Reports: None Endocrine Surgical History: Reports: None Neurological Surgical History: Reports: C-Spine, Spinal Fusion, Other (See Below) Other Neurological Surgeries/Procedures: C1-C2 posterior spinal fusion by MRI with graft from right hip at age 23 and 24. Musculoskeletal Surgical History: Reports: None Oncologic Surgical History: Reports: None Dermatological Surgical History: Reports: None - Past Imaging History Past Imaging History: Reports: DEXA Scan (05/23/17.), MRI (MRI of the C-spine on 05/23/17. Right knee on 08/25/15), Ultrasound (Soft tissue right wrist ultrasound on 08/31/17) Social & Family History - Family History Family Medical History: Unobtainable HEENT: Reports: None Cardiac: Reports: CAD, WA, Other (See Below) Other Cardiac Family History: Paternal aunts x4 with history of WA with 2 of them dying in their 60s from a fatal WA, maternal aunt with fatal WA at age 77, maternal grandmother with fatal WA in her 60s Respiratory: Reports: COPD, Other (See Below) Other Respiratory Family Hisory: Mother with COPD GI: Reports: None : Reports: None OBGYN: Reports: None Musculoskeletal: Reports: None Neurological: Reports: None Psychiatric: Reports: Anxiety, Depression, Other (See Below) Other Psychiatric Family History: Almost all family members on both paternal and maternal sides have problems with anxiety depression disorder and alcohol abuse Endocrine/Metabolic: Reports: None Hematologic: Reports: None Immunologic: Reports: None Dermatologic: Reports: None Oncologic: Reports: Lung, Metastatic, Skin, Other (See Below) Other Oncologic Family History: Father with fatal metastatic skin cancer/melanoma at age 73, maternal aunt with fatal lung cancer in her 60s with history of tobacco use - Tobacco Use Tobacco Use Status *Q: Current Every Day Tobacco User - Caffeine Use Caffeine Use: Reports: Coffee - Living Situation & Occupation Living situation: Reports: (2012, 2 children), with Significant Other Occupation: Unemployed (Previously worked in the [employer] department at [employer] in [place]) ED ROS GENERAL - Review of Systems Review Of Systems: See Below Constitutional: Reports: Fever, Chills, Malaise, Weakness, Fatigue, Decreased Appetite HEENT: Denies: Dental Pain, Ear Discharge, Ear Pain, Rhinitis, Vision Change Respiratory: Reports: Shortness of Breath, Wheezing, Pleuritic Chest Pain, Cough, Sputum. Denies: Hemoptysis Cardiovascular: Reports: Chest Pain, Dyspnea on Exertion, Lightheadedness. Denies: Blood Pressure Problem, Claudication, Edema Endocrine: Reports: No Symptoms GI/Abdominal: Reports: Abdominal Pain (occasionally on the left lower side, not now, long standing) : Reports: No Symptoms Musculoskeletal: Reports: Muscle Pain. Denies: Neck Pain, Shoulder Pain Skin: Reports: No Symptoms Neurological: Reports: Confusion ED EXAM, GENERAL - Physical Exam Exam: See Below Exam Limited By: Respiratory Distress General Appearance: Alert, Moderate Distress Eye Exam: Bilateral Eye: EOMI, Normal Inspection, PERRL Ears: Normal External Exam, Normal Canal, Hearing Grossly Normal Ear Exam: Bilateral Ear: Auricle Normal, TM normal Nose: Normal Inspection, Normal Mucosa, No Blood Throat/Mouth: Normal Inspection, Normal Lips, Normal Oropharynx, Normal Voice Head: Atraumatic Respiratory/Chest: Crackles, Rhonchi, Wheezing, Accessory Muscle Use, Retractions, Prolonged Expiration Cardiovascular: Regular Rate, Rhythm, Tachycardia GI/Abdominal: Soft, Non-Tender, No Organomegaly, No Mass Extremities: Normal Inspection, Normal Range of Motion, Non-Tender, No Pedal Edema Neurological: Alert, CN II-XII Intact, Other (slightly unsteady gate, but leans on partner, able to walk, difficulty not ataxic but due to respiratory distress) Skin Exam: Warm #1 Interpretation EKG Date: 12/07/20 Time: 21:12 Rhythm: NSR [place]: Normal P-Wave: Present QRS: Normal ST-T: Other (slight elevation and flattening of T waves in V1) QT: Normal Comparison: NA - No Prior EKG Course - Vital Signs Last Recorded V/S: Last Vital Signs Temp 36.6 C 12/07/20 21:42 Pulse 86 12/07/20 21:42 Resp 18 12/07/20 21:42 BP 147/93 H 12/07/20 20:47 Pulse Ox 100 12/07/20 21:42 - Orders/Labs/Meds Orders: Active Orders 24 hr Category Date Time Status Admission Status [Patient Status] [ADT] Routine ADT 12/07/20 22:00 Ordered Blood Pressure Mgt: Sepsis [RC] Q15MX2 Care 12/07/20 20:32 Active Cardiac Monitoring [RC] CONTINUOUS Care 12/07/20 20:31 Active Oxygen Therapy, ED [RC] STAT Care 12/07/20 20:31 Active Chest 1V Frontal [CR] Stat Exams 12/07/20 20:31 Taken BLOOD GAS ARTERIAL,POC [POC] Stat Lab 12/07/20 20:31 Ordered CORONAVIRUS COVID-19 MARCIA [MOLEC] Stat Lab 12/07/20 20:34 Received CULTURE BLOOD [BC] Stat Lab 12/07/20 20:41 Received CULTURE BLOOD [BC] Stat Lab 12/07/20 21:05 Received CULTURE SPUTUM + SMEAR [RM] Stat Lab 12/07/20 20:31 Ordered INR,PT,PROTHROMBIN TIME [COAG] Stat Lab 12/07/20 20:41 Received UA W/MICROSCOPIC [URIN] Stat Lab 12/07/20 20:31 Ordered Sodium Chloride 0.9% [Saline Flush] Med 12/07/20 20:31 Active 10 ml FLUSH ASDIRECTED PRN Blood Culture x2 Reflex Set [OM.PC] Stat Oth 12/07/20 20:31 Ordered Saline Lock Insert [OM.PC] Stat Oth 12/07/20 20:31 Ordered EKG 12 Lead [EK] Stat Ther 12/07/20 20:31 Ordered Medication Orders Sodium Chloride (Sodium Chloride 0.9% 10 Ml Syringe) 10 ml FLUSH ASDIRECTED PRN PRN Reason: Keep Vein Open Labs: Laboratory Tests 12/07/20 12/07/20 12/07/20 Range/Units 20:34 20:41 20:41 WBC 12.1 H (4.0-10.2) K/uL RBC 4.48 (3.77-5.09) M/uL Hgb 14.4 (11.7-15.5) g/dL Hct 43.0 (34.0-46.0) % MCV 96.0 D (84.0-98.0) fL MCH 32.1 (28.2-33.3) pg MCHC 33.5 (31.7-36.0) g/dL RDW 13.3 (11.2-14.1) % Plt Count 237 (150-350) K/uL Neut % (Auto) 78.9 (45.0-80.0) % Lymph % (Auto) 13.6 (10.0-50.0) % [place] % (Auto) 4.6 (2.0-14.0) % Eos % (Auto) 2.6 (0.0-5.0) % Baso % (Auto) 0.3 (0.0-2.0) % Neut # (Auto) 9.54 H (1.40-7.00) K/uL Lymph # (Auto) 1.65 (0.50-3.50) K/uL [place] # (Auto) 0.56 (0.00-1.00) K/uL Eos # (Auto) 0.32 (0.00-0.50) K/uL Baso # (Auto) 0.04 (0.00-0.20) K/uL D-Dimer, Quantitative (0-400) ng/mL Sodium 141 (136-145) mmol/L Potassium 3.7 (3.5-5.1) mmol/L Chloride 105 (98-107) mmol/L Carbon Dioxide 28.0 (21.0-32.0) mmol/L Anion Gap 8.0 (7-15) meq/L BUN 13 (7-18) mg/dL Creatinine 0.92 (0.51-1.17) mg/dL Est Cr Clr Drug Dosing TNP Estimated GFR (MDRD) > 60 mL/min Glucose 124 H (70-99) mg/dL Lactic Acid (0.4-2.0) mmol/L Calcium 8.4 L (8.5-10.1) mg/dL Magnesium (1.8-2.4) mg/dL Total Bilirubin 0.5 (0.2-1.0) mg/dL AST 32 (15-37) U/L ALT 46 (12-78) U/L Alkaline Phosphatase 105 (46-116) IU/L Troponin I High Sens 5 (<=51) ng/L C-Reactive Protein 2.1 H (<=0.9) mg/dL NT-Pro-B Natriuret Pep 196 H (0-125) pg/mL Total Protein 7.3 (6.4-8.2) g/dL Albumin 3.7 (3.4-5.0) g/dL SARS-CoV-2 Ag (Rapid) Negative (NEGATIVE) 12/07/20 12/07/20 12/07/20 Range/Units 20:41 20:41 20:41 WBC (4.0-10.2) K/uL RBC (3.77-5.09) M/uL Hgb (11.7-15.5) g/dL Hct (34.0-46.0) % MCV (84.0-98.0) fL MCH (28.2-33.3) pg MCHC (31.7-36.0) g/dL RDW (11.2-14.1) % Plt Count (150-350) K/uL Neut % (Auto) (45.0-80.0) % Lymph % (Auto) (10.0-50.0) % [place] % (Auto) (2.0-14.0) % Eos % (Auto) (0.0-5.0) % Baso % (Auto) (0.0-2.0) % Neut # (Auto) (1.40-7.00) K/uL Lymph # (Auto) (0.50-3.50) K/uL [place] # (Auto) (0.00-1.00) K/uL Eos # (Auto) (0.00-0.50) K/uL Baso # (Auto) (0.00-0.20) K/uL D-Dimer, Quantitative 319 (0-400) ng/mL Sodium (136-145) mmol/L Potassium (3.5-5.1) mmol/L Chloride (98-107) mmol/L Carbon Dioxide (21.0-32.0) mmol/L Anion Gap (7-15) meq/L BUN (7-18) mg/dL Creatinine (0.51-1.17) mg/dL Est Cr Clr Drug Dosing Estimated GFR (MDRD) mL/min Glucose (70-99) mg/dL Lactic Acid 1.1 (0.4-2.0) mmol/L Calcium (8.5-10.1) mg/dL Magnesium 1.8 (1.8-2.4) mg/dL Total Bilirubin (0.2-1.0) mg/dL AST (15-37) U/L ALT (12-78) U/L Alkaline Phosphatase (46-116) IU/L Troponin I High Sens (<=51) ng/L C-Reactive Protein (<=0.9) mg/dL NT-Pro-B Natriuret Pep (0-125) pg/mL Total Protein (6.4-8.2) g/dL Albumin (3.4-5.0) g/dL SARS-CoV-2 Ag (Rapid) (NEGATIVE) Meds: Medications Generic Name Dose Route Start Last Admin Trade Name Luis Miguelq PRN Reason Stop Dose Admin Sodium Chloride 10 ml 12/07/20 20:31 Sodium Chloride 0.9% 10 Ml Syringe FLUSH ASDIRECTED PRN Keep Vein Open Discontinued Medications Generic Name Dose Route Start Last Admin Trade Name Freq PRN Reason Stop Dose Admin Dexamethasone 10 mg 12/07/20 21:23 12/07/20 21:52 Dexamethasone 10 Mg/Ml Sdv IVPUSH 12/07/20 21:24 10 mg ONETIME ONE Administration Vancomycin HCl 1 gm/ Sodium 250 mls @ 165 mls/hr 12/07/20 20:31 12/07/20 21:58 Chloride IV 12/07/20 22:01 165 mls/hr ONETIME ONE Administration Ceftriaxone Sodium 1 gm/ 100 mls @ 200 mls/hr 12/07/20 20:31 12/07/20 21:05 Sodium Chloride IV 12/07/20 21:00 200 mls/hr STAT ONE Administration Sodium Chloride 1,000 mls @ 999 mls/hr 12/07/20 20:31 12/07/20 20:50 Normal Saline IV 12/07/20 21:31 999 mls/hr BOLUS ONE Administration Protocol - Radiology Interpretation Free Text/Narrative:: x-ray report pending at time of signing and admission. No focal infiltrate noted. no pleural effusion, no cardiomegaly interpreted by myself - Re-Assessments/Exams Free Text/Narrative Re-Assessment/Exam: 12/07/20 20:45 Patient's O2 sats are 82% at arrival. o2 placed on nasal cannula. Tachypnea and tachycardia noted. Good blood pressure. Will treated for sepsis with concern for pneumonia versus covid. Isolation precautions. Will await coivd prior to nebs. blood cultures x 2. Will treat with vancomycin and rocephin after cultures due to history of COPD and smoking. 12/07/20 21:24 slight leukocytosis, mild crp elevation./ normal lactic acid. Negative trop and d dimer. acute respiratory failure. Added decadron IV to her medications. On 2 lpm ND and sats of 98% 12/07/20 21:33 attempted abg, patient became agitated and did not allow continue attempt. 12/07/20 21:43 Patient initially told me her nebulizers did not work. Now tells nursing that she has no idea where they are. 12/07/20 21:57 rapid covid is negative. Will do the confirmatory test. Informed patient of need to stay. Wants to leave AMA> Discussed with her that her CO@ could be high, but she is refusing the ABG. THis renders her unable to make an informed decision. Last ABG showed a ph of 6.8 and COS of 124. THis could be the case today and would render her confused in making decisions. is agreeable to overnight only. Will discuss in the morning. does not have a tank with her and home is 45 minutes away Has not been fully compliant with medications and nebs. admit for observation 12/07/20 22:13 discussed with her significant other that he could need to return tomorrow with oxygen tank. He is unsure if any of them has oxygen in them. He would check. Covid test pending at time of signing Departure - Departure Time of Disposition: 21:59 Disposition: Refer to Observation Clinical Impression: Acute respiratory failure with hypoxia, Leukocytosis, Acute exacerbation of chronic obstructive pulmonary disease (COPD), Noncompliance - Discharge Information Referrals: Anna Melvin PA-C [Primary Care Provider] - Forms: ED Department Discharge Additional Instructions: use the ER documentation as the admission H & P Sepsis Event Note (ED) - Focused Exam Vital Signs: Vital Signs Temp Pulse Resp BP Pulse Ox 12/07/20 21:42 36.6 C 86 18 100 12/07/20 20:47 147/93 H 12/07/20 20:32 148/89 H 12/07/20 20:29 37.1 C 92 16 149/91 H 100 - My Orders Last 24 Hours: My Active Orders 12/07/20 20:31 Cardiac Monitoring [RC] CONTINUOUS Oxygen Therapy, ED [RC] STAT Chest 1V Frontal [CR] Stat BLOOD GAS ARTERIAL,POC [POC] Stat CULTURE SPUTUM + SMEAR [RM] Stat UA W/MICROSCOPIC [URIN] Stat Sodium Chloride 0.9% [Saline Flush] 10 ml FLUSH ASDIRECTED PRN Blood Culture x2 Reflex Set [OM.PC] Stat Saline Lock Insert [OM.PC] Stat EKG 12 Lead [EK] Stat 12/07/20 20:32 Blood Pressure Mgt: Sepsis [RC] Q15MX2 12/07/20 20:34 CORONAVIRUS COVID-19 MARCIA [MOLEC] Stat 12/07/20 20:41 CULTURE BLOOD [BC] Stat INR,PT,PROTHROMBIN TIME [COAG] Stat 12/07/20 21:05 CULTURE BLOOD [BC] Stat 12/07/20 22:00 Admission Status [Patient Status] [ADT] Routine - Assessment/Plan Last 24 Hours: My Active Orders 12/07/20 20:31 Cardiac Monitoring [RC] CONTINUOUS Oxygen Therapy, ED [RC] STAT Chest 1V Frontal [CR] Stat BLOOD GAS ARTERIAL,POC [POC] Stat CULTURE SPUTUM + SMEAR [RM] Stat UA W/MICROSCOPIC [URIN] Stat Sodium Chloride 0.9% [Saline Flush] 10 ml FLUSH ASDIRECTED PRN Blood Culture x2 Reflex Set [OM.PC] Stat Saline Lock Insert [OM.PC] Stat EKG 12 Lead [EK] Stat 12/07/20 20:32 Blood Pressure Mgt: Sepsis [RC] Q15MX2 12/07/20 20:34 CORONAVIRUS COVID-19 MARCIA [MOLEC] Stat 12/07/20 20:41 CULTURE BLOOD [BC] Stat INR,PT,PROTHROMBIN TIME [COAG] Stat 12/07/20 21:05 CULTURE BLOOD [BC] Stat 12/07/20 22:00 Admission Status [Patient Status] [ADT] Routine
[2020-12-07] MEDS: Sodium Chloride 0.9% 1,000 ML IV ONE (20:50)
[2020-12-07] MEDS: cefTRIAXone 1 GM in Sodium Chloride 0.9% 100 ML IV ONE (21:05)
[2020-12-07 21:20] LABS: CHLORIDE,CL 105 mmol/L (98-107); SODIUM,NA 141 mmol/L (136-145)
[2020-12-07] MEDS: Dexamethasone 10 MG/ML SDV IVPUSH ONE (21:52)
[2020-12-07] MEDS ORDERED: Acetaminophen 325 MG Tab PO PRN (22:44)
[2020-12-07] MEDS ORDERED: Albuterol 0.083% 2.5 MG/3 ML Neb Soln NEB PRN (22:44)
[2020-12-07] MEDS ORDERED: Ondansetron 4 MG Tab.DIS PO PRN (22:44)
[2020-12-07] MEDS ORDERED: Dextromethorphan/guaiFENesin 600-30 MG Tab.ER PO PRN (22:49)
[2020-12-08] MEDS: Enoxaparin 40 MG/0.4 ML Syringe SUBCUT SCH (08:11)
[2020-12-08] MEDS: Albuterol/Ipratropium 3.0-0.5 MG/3 ML Neb Soln NEB SCH (08:11)
[2020-12-08] MEDS: Magnesium Oxide 400 MG Tab PO SCH (08:11)
[2020-12-08] MEDS: Thiamine 100 MG Tab PO SCH (08:11)
[2020-12-08] MEDS: Aspirin 81 MG Tab.Chew PO SCH (08:11)
[2020-12-08] MEDS: predniSONE 20 MG Tab PO SCH (08:11)
[2020-12-08 08:16] VITALS: BP 119/72; PULSE 81
[2020-12-08] MEDS ORDERED: VANCOmycin 1.5 GM/300 ML 1.5 GM in Premix Bag 1 BAG IV SCH (10:00)
[2020-12-08] MEDS: Sodium Chloride 0.9% 10 ML Syringe FLUSH PRN (10:05)
--- NOTE | 2020-12-08 10:37 | PCM.SN.2 ---
- Free Text/Narrative Note: doing well this morning. on 2 lpm nc. feeling better. has a few nebs at home, 5 puffs of symbicort and a refill. Will send on levaquin, steroids and oxygen. They did find a canister with oxygen in it at home. Will use concentrator at home. follow up with PCP. discharge home after antibiotics today, did receive vancomycin 750 mg and rocephin 1 garm IV.
--- NOTE | 2020-12-08 10:44 | PCM.DCSUM1 ---
Discharge Summary - Hospital Course Free Text/Narrative:: Patient admitted for observation due to hypoxia due COPD/ noncompliance. Given oxygen, antibiotics and nebs. Does not want to stay. No focal pneumonia on chest x-ray, relatively normal labs. Has oxygen at home. HPI Initial Comments: COPD exacerbation, concern for infection, smoker, noncompliant with medications Brief History: admitted, doing well on 2lpm NC. Given IV antibiotics, will switch to orals, and prednisone daily. Needs nebs refilled. Has oxygen at home, will see PCP. encouraged to stop smoking Diagnosis: Stroke: No Modified Kleberg Scale: No Signif.Disability Despite Sympt.Able to Carry Out Usual Act./Duties Modified Kleberg Scale Score: 1 - Discharge Data Discharge Date: 12/08/20 Discharge Disposition: Home, Self-Care 01 Condition: Good - Referral to Home Health Primary Care Physician: Anna Melvin PA-C - Patient Instructions Diet: Usual Diet as Tolerated Activity: As Tolerated Showering/Bathing: May Shower Other/Special Instructions: Use oxygen at all times, find pulse oximeter and use. use portable oxygen when out of the house. Take antibiotics until gone, follow up with PCP. Stop smoking - Discharge Plan Prescriptions/Med Rec: Albuterol/Ipratropium [DuoNeb 3.0-0.5 MG/3 ML] 3 ml NEB Q12HR 15 Days #30 neb Levofloxacin [Levaquin] 500 mg PO DAILY 6 Days #6 tablet predniSONE 40 mg PO WITHBREAKFAST 5 Days #10 tablet Albuterol [Proventil Neb Soln] 2.5 mg NEB Q2H PRN 10 Days #30 neb PRN Reason: Shortness Of Breath/wheezing Home Medications: Home Meds Budesonide/Formoterol Fumarate [Symbicort 160-4.5 Mcg Inhaler] 1 puff IH DAILY 12/31/17 [History] Ipratropium/Albuterol Sulfate [Iprat-Albut 0.5-3(2.5) MG/3 ML] 3 ml NEB QID PRN 12/31/17 [History] Dextromethorphan/guaiFENesin [Mucinex DM ER 600-30 MG] 1 tab PO BID PRN tab.er 09/22/18 [Rx] Thiamine [Vitamin B-1] 100 mg PO DAILY #100 tablet 09/22/18 [Rx] Aspirin 81 mg PO DAILY 02/13/19 [History] Ferrous Sulfate [Iron] 325 mg PO MOTH 02/13/19 [History] Magnesium Oxide 400 mg PO DAILY 02/13/19 [History] Albuterol [Proventil Neb Soln] 2.5 mg NEB Q2H PRN 10 Days #30 neb 12/08/20 [Rx] Albuterol/Ipratropium [DuoNeb 3.0-0.5 MG/3 ML] 3 ml NEB Q12HR 15 Days #30 neb 12/08/20 [Rx] Levofloxacin [Levaquin] 500 mg PO DAILY 6 Days #6 tablet 12/08/20 [Rx] predniSONE 40 mg PO WITHBREAKFAST 5 Days #10 tablet 12/08/20 [Rx] Oxygen Therapy Mode: Nasal Cannula Oxygen Flow Rate (L/min): 2 Maintain SpO2% greater than: 90 Patient Handouts: Chronic Obstructive Pulmonary Disease Exacerbation Forms: ED Department Discharge Referrals: Anna Melvin PA-C [Primary Care Provider] - - Discharge Summary/Plan Comment DC Time >30 min.: No Total # of Minutes for Discharge Time: 25 Discharge Summary/Plan Comment: You were given IV antibiotics today, start oral antibiotics tomorrow. take the steroids daily starting tomorrow. Fill prescriptions for inhalers, nebs and use. use oxygen at all times and find your pulse ox to gauge how much oxygen you need. Goal is to maintain 90-95%. Check this with activity as you may need more oxygen. Stop smoking. You were offered longer stay, you elected to go home. - General Info Date of Service: 12/08/20 Admission Dx/Problem (Free Text: copd exacerbation Subjective Update: doing better, wants to go home, has home oxygen Functional Status: Reports: Pain Controlled, Tolerating Diet - Review of Systems General: Reports: Fatigue HEENT: Reports: No Symptoms Pulmonary: Reports: Shortness of Breath, Cough, Sputum Cardiovascular: Reports: No Symptoms Gastrointestinal: Reports: No Symptoms Genitourinary: Reports: No Symptoms Musculoskeletal: Reports: No Symptoms - Patient Data Vitals - Most Recent: Last Vital Signs Temp 36.6 C 12/08/20 08:00 Pulse 81 12/08/20 08:00 Resp 20 12/08/20 08:00 BP 119/72 12/08/20 08:00 Pulse Ox 89 L 12/08/20 08:00 Weight - Most Recent: 50.186 kg I&O - Last 24 hours: Intake & Output 12/07/20 12/08/20 12/08/20 22:59 06:59 14:59 Intake Total 100 Balance 100 Lab Results - Last 24 hrs: Laboratory Results - last 24 hr 12/07/20 12/07/20 12/07/20 Range/Units 20:34 20:34 20:41 WBC 12.1 H (4.0-10.2) K/uL RBC 4.48 (3.77-5.09) M/uL Hgb 14.4 (11.7-15.5) g/dL Hct 43.0 (34.0-46.0) % MCV 96.0 D (84.0-98.0) fL MCH 32.1 (28.2-33.3) pg MCHC 33.5 (31.7-36.0) g/dL RDW 13.3 (11.2-14.1) % Plt Count 237 (150-350) K/uL Neut % (Auto) 78.9 (45.0-80.0) % Lymph % (Auto) 13.6 (10.0-50.0) % [place] % (Auto) 4.6 (2.0-14.0) % Eos % (Auto) 2.6 (0.0-5.0) % Baso % (Auto) 0.3 (0.0-2.0) % Neut # (Auto) 9.54 H (1.40-7.00) K/uL Lymph # (Auto) 1.65 (0.50-3.50) K/uL [place] # (Auto) 0.56 (0.00-1.00) K/uL Eos # (Auto) 0.32 (0.00-0.50) K/uL Baso # (Auto) 0.04 (0.00-0.20) K/uL PT (9.5-12.0) SEC INR D-Dimer, Quantitative (0-400) ng/mL Sodium (136-145) mmol/L Potassium (3.5-5.1) mmol/L Chloride (98-107) mmol/L Carbon Dioxide (21.0-32.0) mmol/L Anion Gap (7-15) meq/L BUN (7-18) mg/dL Creatinine (0.51-1.17) mg/dL Est Cr Clr Drug Dosing Estimated GFR (MDRD) mL/min Glucose (70-99) mg/dL Lactic Acid (0.4-2.0) mmol/L Calcium (8.5-10.1) mg/dL Magnesium (1.8-2.4) mg/dL Total Bilirubin (0.2-1.0) mg/dL AST (15-37) U/L ALT (12-78) U/L Alkaline Phosphatase (46-116) IU/L Troponin I High Sens (<=51) ng/L C-Reactive Protein (<=0.9) mg/dL NT-Pro-B Natriuret Pep (0-125) pg/mL Total Protein (6.4-8.2) g/dL Albumin (3.4-5.0) g/dL SARS-CoV-2 RNA (MARCIA) Negative (NEGATIVE) SARS-CoV-2 Ag (Rapid) Negative (NEGATIVE) 12/07/20 12/07/20 12/07/20 Range/Units 20:41 20:41 20:41 WBC (4.0-10.2) K/uL RBC (3.77-5.09) M/uL Hgb (11.7-15.5) g/dL Hct (34.0-46.0) % MCV (84.0-98.0) fL MCH (28.2-33.3) pg MCHC (31.7-36.0) g/dL RDW (11.2-14.1) % Plt Count (150-350) K/uL Neut % (Auto) (45.0-80.0) % Lymph % (Auto) (10.0-50.0) % [place] % (Auto) (2.0-14.0) % Eos % (Auto) (0.0-5.0) % Baso % (Auto) (0.0-2.0) % Neut # (Auto) (1.40-7.00) K/uL Lymph # (Auto) (0.50-3.50) K/uL [place] # (Auto) (0.00-1.00) K/uL Eos # (Auto) (0.00-0.50) K/uL Baso # (Auto) (0.00-0.20) K/uL PT 9.0 L (9.5-12.0) SEC INR 0.9 D-Dimer, Quantitative (0-400) ng/mL Sodium 141 (136-145) mmol/L Potassium 3.7 (3.5-5.1) mmol/L Chloride 105 (98-107) mmol/L Carbon Dioxide 28.0 (21.0-32.0) mmol/L Anion Gap 8.0 (7-15) meq/L BUN 13 (7-18) mg/dL Creatinine 0.92 (0.51-1.17) mg/dL Est Cr Clr Drug Dosing TNP Estimated GFR (MDRD) > 60 mL/min Glucose 124 H (70-99) mg/dL Lactic Acid 1.1 (0.4-2.0) mmol/L Calcium 8.4 L (8.5-10.1) mg/dL Magnesium (1.8-2.4) mg/dL Total Bilirubin 0.5 (0.2-1.0) mg/dL AST 32 (15-37) U/L ALT 46 (12-78) U/L Alkaline Phosphatase 105 (46-116) IU/L Troponin I High Sens 5 (<=51) ng/L C-Reactive Protein 2.1 H (<=0.9) mg/dL NT-Pro-B Natriuret Pep 196 H (0-125) pg/mL Total Protein 7.3 (6.4-8.2) g/dL Albumin 3.7 (3.4-5.0) g/dL SARS-CoV-2 RNA (MARCIA) (NEGATIVE) SARS-CoV-2 Ag (Rapid) (NEGATIVE) 12/07/20 12/07/20 12/08/20 Range/Units 20:41 20:41 07:51 WBC 15.2 H (4.0-10.2) K/uL RBC 4.32 (3.77-5.09) M/uL Hgb 13.9 (11.7-15.5) g/dL Hct 41.6 (34.0-46.0) % MCV 96.3 (84.0-98.0) fL MCH 32.2 (28.2-33.3) pg MCHC 33.4 (31.7-36.0) g/dL RDW 13.5 (11.2-14.1) % Plt Count 228 (150-350) K/uL Neut % (Auto) 90.3 H (45.0-80.0) % Lymph % (Auto) 5.8 L (10.0-50.0) % [place] % (Auto) 3.8 (2.0-14.0) % Eos % (Auto) 0.0 (0.0-5.0) % Baso % (Auto) 0.1 (0.0-2.0) % Neut # (Auto) 13.69 H (1.40-7.00) K/uL Lymph # (Auto) 0.88 (0.50-3.50) K/uL [place] # (Auto) 0.57 (0.00-1.00) K/uL Eos # (Auto) 0.00 (0.00-0.50) K/uL Baso # (Auto) 0.01 (0.00-0.20) K/uL PT (9.5-12.0) SEC INR D-Dimer, Quantitative 319 (0-400) ng/mL Sodium (136-145) mmol/L Potassium (3.5-5.1) mmol/L Chloride (98-107) mmol/L Carbon Dioxide (21.0-32.0) mmol/L Anion Gap (7-15) meq/L BUN (7-18) mg/dL Creatinine (0.51-1.17) mg/dL Est Cr Clr Drug Dosing Estimated GFR (MDRD) mL/min Glucose (70-99) mg/dL Lactic Acid (0.4-2.0) mmol/L Calcium (8.5-10.1) mg/dL Magnesium 1.8 (1.8-2.4) mg/dL Total Bilirubin (0.2-1.0) mg/dL AST (15-37) U/L ALT (12-78) U/L Alkaline Phosphatase (46-116) IU/L Troponin I High Sens (<=51) ng/L C-Reactive Protein (<=0.9) mg/dL NT-Pro-B Natriuret Pep (0-125) pg/mL Total Protein (6.4-8.2) g/dL Albumin (3.4-5.0) g/dL SARS-CoV-2 RNA (MARCIA) (NEGATIVE) SARS-CoV-2 Ag (Rapid) (NEGATIVE) Med Orders - Current: Current Medications Acetaminophen (Acetaminophen 325 Mg Tab) 650 mg PO Q4H PRN PRN Reason: Pain (Mild 1-3)/fever Albuterol (Albuterol 0.083% 2.5 Mg/3 Ml Neb Soln) 2.5 mg NEB Q2H PRN PRN Reason: Shortness Of Breath/wheezing Albuterol/Ipratropium (Albuterol/Ipratropium 3.0-0.5 Mg/3 Ml Neb Soln) 3 ml NEB Q12HR [facility] Last Admin: 12/08/20 08:11 Dose: 3 ml Documented by: Aspirin (Aspirin 81 Mg Tab.Chew) 81 mg PO DAILY [facility] Last Admin: 12/08/20 08:11 Dose: 81 mg Documented by: Enoxaparin Sodium (Enoxaparin 40 Mg/0.4 Ml Syringe) 40 mg SUBCUT DAILY [facility] Last Admin: 12/08/20 08:11 Dose: 40 mg Documented by: Guaifenesin/Dextromethorphan (Dextromethorphan/Guaifenesin 600-30 Mg Tab.Er) 1 tab PO BID PRN PRN Reason: Cough Ceftriaxone Sodium 1 gm/ (Sodium Chloride) 100 mls @ 200 mls/hr IV Q24H [facility] Vancomycin HCl 750 mg/ Sodium (Chloride) 250 mls @ 250 mls/hr IV Q12H [facility] Last Admin: 12/08/20 10:05 Dose: 250 mls/hr Documented by: Magnesium Oxide (Magnesium Oxide 400 Mg Tab) 400 mg PO DAILY [facility] Last Admin: 12/08/20 08:11 Dose: 400 mg Documented by: Ondansetron HCl (Ondansetron 4 Mg Tab.Dis) 4 mg PO Q4H PRN PRN Reason: Nausea/Vomiting Prednisone (Prednisone 20 Mg Tab) 40 mg PO WITHBREAKFAST [facility] Last Admin: 12/08/20 08:11 Dose: 40 mg Documented by: Sodium Chloride (Sodium Chloride 0.9% 10 Ml Syringe) 10 ml FLUSH ASDIRECTED PRN PRN Reason: Keep Vein Open Last Admin: 12/08/20 10:05 Dose: 10 ml Documented by: Thiamine HCl (Thiamine 100 Mg Tab) 100 mg PO DAILY [facility] Last Admin: 12/08/20 08:11 Dose: 100 mg Documented by: Discontinued Medications Dexamethasone (Dexamethasone 10 Mg/Ml Sdv) 10 mg IVPUSH ONETIME ONE Stop: 12/07/20 21:24 Last Admin: 12/07/20 21:52 Dose: 10 mg Documented by: Vancomycin HCl 1 gm/ Sodium (Chloride) 250 mls @ 165 mls/hr IV ONETIME ONE Stop: 12/07/20 22:01 Last Admin: 12/07/20 21:58 Dose: 165 mls/hr Documented by: Ceftriaxone Sodium 1 gm/ (Sodium Chloride) 100 mls @ 200 mls/hr IV STAT ONE Stop: 12/07/20 21:00 Last Admin: 12/07/20 21:05 Dose: 200 mls/hr Documented by: Sodium Chloride (Normal Saline) 1,000 mls @ 999 mls/hr IV BOLUS ONE; Protocol Stop: 12/07/20 21:31 Last Admin: 12/07/20 20:50 Dose: 999 mls/hr Documented by: Vancomycin HCl 1.5 gm/ Premix 300 mls @ 200 mls/hr IV Q12H [facility] Stop: 12/09/20 23:29 - Exam Quality Assessment: Reports: Supplemental Oxygen General: Reports: Alert, Oriented HEENT: Reports: Pupils Equal Neck: Reports: Supple Lungs: Reports: Decreased Breath Sounds, Crackles, Wheezing (improved from yesterday) Cardiovascular: Reports: Regular Rate, Regular Rhythm GI/Abdominal Exam: Normal Bowel Sounds Back Exam: Reports: Normal Inspection, Full Range of Motion Extremities: Normal Inspection, No Pedal Edema
[2020-12-08] MEDS ORDERED: cefTRIAXone 1 GM in Sodium Chloride 0.9% 100 ML IV SCH (22:00)
== END 2020-12-08 11:30 | disposition home or self-care (01) ==
LOC: LL.ED 20:29 → SUPCPDRO 20:29 → LL.MS 22:15
PROVIDERS: ADMIT Physician Assistant; ATTEND Physician Assistant
DX: J44.1 Chronic obstructive pulmonary disease with (acute) exacerbation (principal); J96.01 Acute respiratory failure with hypoxia; D72.829 Elevated white blood cell count, unspecified; E78.00 Pure hypercholesterolemia, unspecified; F17.210 Nicotine dependence, cigarettes, uncomplicated; Z20.822 Contact with and (suspected) exposure to COVID-19; Z91.19 Patient's noncompliance with other medical treatment and regimen; Z79.82 Long term (current) use of aspirin; Z79.899 Other long term (current) drug therapy
CPT/HCPCS: 36415; 71045; 80053; 83605; 83735; 83880; 84484; 85025; 85379; 85610; 86140; 87040; 87070; 87077; 87186; 87205; 87426; 93005; 93010; 94640; 94761; 96365; 96367; 96372; 96375; 96376; 99217; 99220; 99284; 99285-25; A9270-GY; G0378; J0696; J1100; J1650; J3370; J7030; J7050; J7512; J7620-GY; U0002